=== PATIENT | female | born 1950 | race Two or more races ===

== ENCOUNTER 2020-06-12 15:31 | Outpatient (REF) | payer MEDICARE, MEDICAID, SELFPAY ==
--- NOTE | 2020-06-12 | MM_ITS ---
EXAMINATION: MM SCREENING DIGITAL BREAST TOMOSYNTHESIS, BILATERAL CLINICAL INFORMATION: Screening. Asymptomatic. The lifetime risk of breast cancer based on the Tyrer-Cuzick Model is 4%. COMPARISON: Mammography: 09/05/2018, 08/23/2017, 08/02/2016, 07/01/2015 TECHNIQUE: Digital breast tomosynthesis is performed in both the craniocaudal and mediolateral oblique views along with computer-aided detection (CAD). Synthesized 2D images are generated from the tomosynthesis. FINDINGS: There are scattered areas of fibroglandular density (ACR BI-RADS breast composition Category b). Parenchymal pattern is similar to prior studies. There is some scattered stable nodularity central and anterior left breast and mid outer right breast. There is no interval dominant mass or architectural abnormality or abnormal calcifications. Axillary nodes are stable. The skin contours are smooth. No significant changes from prior exams. MM/MM tomosynthesis screening BI IMPRESSION: No significant changes from prior studies. ASSESSMENT: BI-RADS 2: Benign RECOMMENDATION: Routine annual mammography screening. This patient's information was entered into a reminder system with a target due date for their next mammogram.
== END 2020-06-12 15:32 | disposition home or self-care (01) ==
LOC: HO.MAMMO 15:31
PROVIDERS: PCP Internal Medicine; Visit Provider Internal Medicine
DX: Z12.31 Encounter for screening mammogram for malignant neoplasm of breast (principal)
CPT/HCPCS: 77063; 77067

== ENCOUNTER → 2020-09-11 12:45 | Outpatient (REF) | payer MEDICARE, MEDICAID, SELFPAY ==
--- NOTE | 2020-09-11 12:50 | ECG_ITS ---
Hook-up date: 2020-09-11 13:09:00 Duration: 47:59:00 Test Indications: PALPITATIONS Medications: 920801 QRS complexes 8248 Ventricular ectopics which represent 4 % of total QRS comp. 86 Supraventricular ectopics which represent <1 % of total QRS comp. * Paced QRS complexs which represent % of total QRS comp. VENTRICULAR ECTOPY 8248 Isolated 24 Bigeminal Cycles 0 Couplets 0 Runs 0 Beats in Runs * Beats LONGEST at * BPM at :: -- * Beats FASTEST at * BPM at :: -- SUPRAVENTRICULAR ECTOPY 86 Isolated 0 Couplets 0 Runs 0 Beats in Runs * Beats LONGEST at * BPM at :: -- * Beats FASTEST at * BPM at :: -- HEART RATES 38 MIN at 10:19:22 2020-09-13 58 AVG 108 MAX at 23:25:04 2020-09-12 LONGEST RR 1.4800 secs at 10:19:22 2020-09-13 S-T LEVELS Channel 1 - 128 mm at 13:09:00 2020-09-11 - 128 mm at 13:09:00 2020-09-11 Channel 2 - 128 mm at 13:09:00 2020-09-11 - 128 mm at 13:09:00 2020-09-11 Channel 3 - 128 mm at 03:22:81 -- - 128 mm at 03:22:81 Underlying rhythm is sinus; Frequent Premature ventricular complexes - 5% of total beats; Isolated beats with few bigeminal cycles; Patient did not report any symptoms in the diary Referred By: Kelli Huffman Overread By: CHARLES WASHINGTON
== END ==
LOC: HO.CARD 12:45
PROVIDERS: Visit Provider Internal Medicine
DX: R00.2 Palpitations (principal)
CPT/HCPCS: 93225; 93226

== ENCOUNTER 2020-11-16 09:40 | Outpatient (REF) | payer MEDICARE, MEDICAID, SELFPAY ==
[2020-11-16 10:44] LABS: Alanine Aminotransferase 21 U/L (0-31); Albumin Level 4.4 g/dL (3.5-5.0); Alkaline Phosphatase 51 U/L (39-117); Anion Gap 12 (12-20); Aspartate Amino Transferase 23 U/L (5-31); Bilirubin Total 0.8 mg/dL (0.0-1.0); Blood Urea Nitrogen 26 mg/dL (9-16); Calcium 9.5 mg/dL (8.4-10.2); Carbon Dioxide 29 mmol/L (22-29); Chloride 102 mmol/L (96-108); Cholesterol 180 mg/dL; Estimated Glomerular Filt Rate 59; Glucose Fasting 88 mg/dL (60-99); HDL Cholesterol 39 mg/dL; LDL Cholesterol Calculated 114 mg/dl; Potassium 3.5 mmol/L (3.3-5.1); Sodium 139 mmol/L (135-145); Triglycerides 138 mg/dL
== END 2020-11-16 09:41 | disposition home or self-care (01) ==
LOC: HO.LAB 09:40
PROVIDERS: PCP Internal Medicine; Visit Provider Internal Medicine
DX: E78.5 Hyperlipidemia, unspecified (principal); I10 Essential (primary) hypertension
CPT/HCPCS: 36415; 80053; 80061

== ENCOUNTER 2020-12-04 13:12 | Outpatient (REF) | payer MEDICARE, MEDICAID, SELFPAY ==
[2020-12-09 08:12] LABS: HPV mRNA E6/E7 rflx Not Detected (Not Detected)
== END 2020-12-04 13:13 | disposition home or self-care (01) ==
LOC: HO.LAB 13:12
PROVIDERS: PCP Internal Medicine; Visit Provider Advanced Practice Midwife
DX: Z01.419 Encounter for gynecological examination (general) (routine) without abnormal findings (principal); Z11.51 Encounter for screening for human papillomavirus (HPV)
CPT/HCPCS: 87624; 88142

== ENCOUNTER 2021-02-25 13:08 | Outpatient (REF) | payer MEDICARE, MEDICAID, SELFPAY ==
[2021-02-26 08:47] LABS: BV Int Neg Control Negative (Negative); BV Int Pos Control Positive (Positive)
== END 2021-02-25 13:09 | disposition home or self-care (01) ==
LOC: HO.LAB 13:08
PROVIDERS: Visit Provider Obstetrics & Gynecology
DX: N95.0 Postmenopausal bleeding (principal); N89.8 Other specified noninflammatory disorders of vagina
CPT/HCPCS: 87480; 87510; 87660; 88305; 99212

== ENCOUNTER → 2021-03-23 11:05 | Outpatient (BNVA) | payer MEDICARE, MEDICAID, SELFPAY | PROVIDERS: Visit Provider Obstetrics & Gynecology | DX: N95.0 Postmenopausal bleeding (principal) | CPT/HCPCS: 99212 ==

== ENCOUNTER 2021-05-17 09:03 | Outpatient (REF) | payer MEDICARE, MEDICAID, SELFPAY ==
[2021-05-17 10:40] LABS: Alanine Aminotransferase 21 U/L (0-31); Albumin Level 4.4 g/dL (3.5-5.0); Alkaline Phosphatase 50 U/L (39-117); Anion Gap 14 (12-20); Aspartate Amino Transferase 23 U/L (5-31); Bilirubin Total 0.5 mg/dL (0.0-1.0); Blood Urea Nitrogen 22 mg/dL (9-16); Calcium 9.7 mg/dL (8.4-10.2); Carbon Dioxide 28 mmol/L (22-29); Chloride 103 mmol/L (96-108); Cholesterol 198 mg/dL; Estimated Glomerular Filt Rate > 60; Glucose Fasting 93 mg/dL (60-99); HDL Cholesterol 37 mg/dL; LDL Cholesterol Calculated 130 mg/dl; Potassium 3.4 mmol/L (3.3-5.1); Sodium 142 mmol/L (135-145); Total Protein 7.1 g/dL (6.5-8.0); Triglycerides 159 mg/dL
== END 2021-05-17 09:04 | disposition home or self-care (01) ==
LOC: HO.LAB 09:03
PROVIDERS: PCP Internal Medicine; Visit Provider Internal Medicine
DX: E78.5 Hyperlipidemia, unspecified (principal); I10 Essential (primary) hypertension
CPT/HCPCS: 36415; 80053; 80061

== ENCOUNTER 2021-06-22 08:42 | Outpatient (REF) | payer MEDICARE, MEDICAID, SELFPAY ==
--- NOTE | ~2021-06-22 | MM_ITS ---
EXAMINATION: BONE DENSITOMETRY CLINICAL INDICATION: Menopause. COMPARISON: This is the patient's baseline examination. TECHNIQUE: Using a [employer] DXA System (software version: 13.1) manufactured by [employer], dual-energy x-ray absorptiometry was performed of the lumbar spine and left hip. The images are of good technical quality. Summary results are attached. FINDINGS: AP SPINE L1-L4: BMD 1.105 g/cm2, Z-score 0.3, T-score -0.6, normal. LEFT FEMUR, NECK: BMD 0.946 g/cm2, Z-score 0.5, T-score -0.7, normal. LEFT FEMUR, TOTAL: BMD 1.109 g/cm2, Z-score 1.6, T-score 0.8, normal. IDENTIFIED RISK FACTORS: Menopause. HISTORY OF FRACTURE: None listed. MEDICATIONS: Vitamin D. MM/XR DEXA axial skeleton IMPRESSION: 1. DIAGNOSIS: Normal bone density based on the lowest T-score value of -0.7 in the femoral neck applying World Health Organization criteria. 2. 10-YEAR FRACTURE RISK PREDICTION, FRAX: Major osteoporotic fracture (clinical spine, forearm, hip or shoulder) 4.2%. Hip fracture 0.3%. 3. Treatment Recommendations: NOF guidelines recommend consideration for treatment in postmenopausal women and men age 50 and older presenting with the following: -A hip or vertebral (clinical or morphometric) fracture. -T-score less than or equal to -2.5 at the femoral neck or spine after appropriate evaluation to exclude secondary causes. -Low bone mass at the hip or spine and a 10-year fracture probability by FRAX of greater than or equal to 3% for hip fracture or greater than or equal to 20% for major osteoporotic fracture based on the [place] adapted WHO algorithm. 4. Other Recommendations: All treatment decisions require clinical judgment and consideration of individual patient factors, including patient preferences, comorbidities, previous drug use, risk factors not captured in the FRAX model (e.g. frailty, falls, vitamin D deficiency, increased bone turnover, interval significant decline in bone density) and possible under or overestimation of fracture risk by FRAX. FUTURE SCAN RECOMMENDATION: People with diagnosed cases of osteoporosis or at high risk for fracture should have regular bone mineral density tests. For patients eligible for Medicare, routine testing is allowed once every 2 years. The testing frequency can be increased to one year for patients who have rapidly progressing disease, those who are receiving or discontinuing medical therapy to restore bone mass, or have additional risk factors.
== END 2021-06-22 08:43 | disposition home or self-care (01) ==
LOC: HO.MAMMO 08:42
PROVIDERS: Visit Provider Nurse Practitioner Family
DX: Z13.820 Encounter for screening for osteoporosis (principal); Z78.0 Asymptomatic menopausal state; Z79.899 Other long term (current) drug therapy
CPT/HCPCS: 77080

== ENCOUNTER 2021-07-06 09:22 | Outpatient (REF) | payer MEDICARE, MEDICAID, SELFPAY ==
--- NOTE | ~2021-07-06 | MM_ITS ---
EXAMINATION: MM SCREENING DIGITAL BREAST TOMOSYNTHESIS, BILATERAL CLINICAL INFORMATION: Screening. Asymptomatic. The lifetime risk of breast cancer based on the Tyrer-Cuzick Model is 5%. COMPARISON: Mammography: 06/12/2020, 09/05/2018, 08/23/2017 TECHNIQUE: Digital breast tomosynthesis is performed in both the craniocaudal and mediolateral oblique views along with computer-aided detection (CAD). Synthesized 2D images are generated from the tomosynthesis. FINDINGS: There are scattered areas of fibroglandular density (ACR BI-RADS breast composition Category b). There are no significant masses, abnormal calcifications, or other abnormalities. Parenchymal pattern is similar to prior studies. There is a stable circumscribed nodule anterior 1:00 left breast. Intramammary node again seen mid upper outer right breast. Fine fibronodular pattern is similar to prior exams. No significant changes. MM/MM tomosynthesis screening BI IMPRESSION: No mammographic evidence of malignancy. ASSESSMENT: BI-RADS 2: Benign RECOMMENDATION: Routine annual mammography screening. This patient's information was entered into a reminder system with a target due date for their next mammogram.
== END 2021-07-06 09:23 | disposition home or self-care (01) ==
LOC: HO.MAMMO 09:22
PROVIDERS: Visit Provider Internal Medicine
DX: Z12.31 Encounter for screening mammogram for malignant neoplasm of breast (principal)
CPT/HCPCS: 77063; 77067

== ENCOUNTER → 2021-09-16 09:43 | Outpatient (BNVA) | payer MEDICARE, MEDICAID, SELFPAY | PROVIDERS: PCP Internal Medicine; Visit Provider Urology | DX: N28.1 Cyst of kidney, acquired (principal) | CPT/HCPCS: 99212 ==

== ENCOUNTER 2021-10-14 09:15 | Outpatient (REF) | payer MEDICARE, MEDICAID, SELFPAY ==
--- NOTE | ~2021-10-14 | US_ITS ---
EXAMINATION: US RETROPERITONEAL LIMITED (RENAL ONLY) CLINICAL INFORMATION: Calculus of kidney. COMPARISON: Renal ultrasound 03/12/2020 and 04/16/2019. CT abdomen 07/11/2017. MRI abdomen 04/24/2017. TECHNIQUE: Real-time imaging of the kidneys. FINDINGS: RIGHT KIDNEY: 11.6 x 4.3 x 5.4 cm (SAG x AP x TRV). The kidney is normal in size, contour, and echogenicity. Renal cortical thickness is normal. No renal calculi or hydronephrosis. Solitary isoechoic solid mass is present at the superior pole, measures 1.8 x 1.4 x 1.7 cm, previously measured 1.6 x 1.4 x 1.4 cm, shows minimal interval increase in size since 03/12/2020. Follow-up multiphasic pre and postcontrast MRI or CT scan per renal mass protocol may be considered for further clarification. In addition, there is an echogenic circumscribed solid mass identified also at the superior pole, measures 0.7 x 0.5 x 0.5 cm, most consistent with an angiomyolipoma, unchanged. LEFT KIDNEY: 11.1 x 4.5 x 5.5 cm (SAG x AP x TRV). The kidney is normal in size, contour, and echogenicity. Renal cortical thickness is normal. No renal calculi or hydronephrosis. Multiple cortical subcentimeter cysts are noted at the superior as well as inferior poles, similar to prior study dated 03/12/2020. The largest cyst is seen at the superior pole, measures 0.9 x 0.7 x 0.8 cm, unchanged. US/US renal BI IMPRESSION: 1. Bilateral normal-sized kidneys without evidence of any hydronephrosis and/or calculi. 2. No gross sonographic evidence of urinary tract calculi. 3. Solitary isoechoic solid mass at superior pole of the right kidney, measures 1.8 cm at its maximum dimension, previously 1.6 cm on the study dated 03/12/2020. Given the interval increase in size, follow-up multiphasic pre and postcontrast MRI or CT scan per renal mass protocol may be helpful for further clarification. Subcentimeter presumed angiomyolipoma also seen at the superior pole of the right kidney appear unchanged. 4. Multiple subcentimeter cortical cysts involving the left kidney appear unchanged.
== END 2021-10-14 09:16 | disposition home or self-care (01) ==
LOC: HO.US 09:15
PROVIDERS: PCP Internal Medicine; Visit Provider Urology
DX: N20.0 Calculus of kidney (principal); N28.1 Cyst of kidney, acquired
CPT/HCPCS: 76775

== ENCOUNTER 2021-10-29 16:48 | Emergency (ER) | payer MEDICARE, MEDICAID, SELFPAY ==
--- NOTE | ~2021-10-29 | XR_ITS ---
EXAMINATION: XR HIP, LEFT CLINICAL INFORMATION: Hip pain COMPARISON: None TECHNIQUE: A frontal radiograph of the pelvis and frontal and frog lateral radiographs of the left hip were acquired. FINDINGS: No fracture, dislocation or bone lesion is evident. Mild superolateral joint space narrowing is evident. Incidental note is made of mild degenerative changes in the lower lumbar spine. An IUD is present. XR/XR hip LT min 2V IMPRESSION: Mild superolateral joint space narrowing of the left hip, but no acute fracture, subluxation or bone lesion.
[2021-10-29 17:21] VITALS: BP 149/83; PULSE 89; RESP 20; TEMP 37.1; O2SAT 99; BMI 34.3
--- NOTE | 2021-10-29 19:10 | ED_ITS ---
HPI - Extremity Injury (Lower) General Chief Complaint: Extremity Injury, Lower Stated Complaint: Lower left abd pain Source: patient Mode of arrival: ambulatory Limitations: no limitations History of Present Illness HPI Narrative: 70-year-old female presents with 5 days of left hip pain. Patient states that she only has pain on ambulation. Does not report any injuries or falls. MD complaint: other (Hip pain) Onset (ago): day(s) (5) Type of Injury: unknown Place: home Severity: moderate Severity scale (1-10): 6 Relieving factors: nothing Exacerbating factors: weight bearing Other symptoms: none Treatments prior to arrival: NSAIDS Related Data Previous Rx's Medication Instructions Recorded atorvastatin 10 mg tablet 10 mg PO BEDTIME 90 Days #90 tab 01/17/21 hydrochlorothiazide 50 mg tablet 50 mg PO DAILY #90 tab 04/16/21 cholecalciferol (vitamin D3) 25 25 mcg PO DAILY 90 Days #90 cap 10/05/21 mcg (1,000 unit) capsule lisinopril 20 mg tablet 20 mg PO DAILY 90 Days #90 tab 10/07/21 fluticasone propionate 50 1 spray INTRANASAL DAILY 30 Days 10/25/21 mcg/actuation nasal #16 g spray,suspension (Flonase Allergy Relief) Allergies Allergy/AdvReac Type Severity Reaction Status Date / Time aspirin [ASPIRIN] Allergy Intermediate GI UPSET, Verified 10/05/21 11:36 stomach upset Review of Systems Review of Systems: Constitutional: No Fever, No Chills ENT/Mouth: No Ear Pain, No Hoarseness, No sore throat Eyes: No Eye Pain, No Swelling, No Redness, No Foreign Body Cardiovascular: No Chest Pain, No SOB Respiratory: No Cough, No Dyspnea Gastrointestinal: No Nausea, No Vomiting, No Diarrhea, No abdominal Pain Genitourinary: No Dysuria, No Hematuria Musculoskeletal: positive left hip pain, No Myalgias, No Joint Swelling Skin: No Skin lacerations, No rash Neuro: No Weakness, No Numbness, No Paresthesias, No Loss of Consciousness, No Dizziness, No Headache Psych: No Anxiety/Panic, No Depression Heme/Lymph: no easy bruising, no Lymphadenopathy Endocrine: No Polyuria, No Polydipsia Yes all other systems are reviewed and are negative [facility] Past Medical History Attestation statement: The following information was validated with the patient. Source: old records reviewed Medical History Class 1 obesity with body mass index (BMI) of 34.0 to 34.9 in adult Dyslipidemia Endometrial hyperplasia Endometrium, polyp Essential hypertension Hypovitaminosis D LGSIL (low grade squamous intraepithelial dysplasia) Palpitations Renal neoplasm Surgical History History of cholecystectomy History of colonoscopy History of hysteroscopy Family History Family History Father Leukemia Mother Brain tumor Sister Diabetes Heart problem Sister Renal failure Brother Stroke Brother Hypertension Family/Other FH: mental illness Maternal Uncle Paranoia Family/Other Breast cancer Social History Social History Housing: House Alcohol intake: never Patient Tobacco Use Status: Never used Tobacco e-Cigarette/Vaping Use: Never Used Second Hand Smoke Exposure: No Advance Directives: No Advance Directives Information Provided: No service: No Current occupational status: retired Hearing needs: No Vision needs: Yes Physical Exam Vital Signs: Vital Signs: Last Vital Signs Temp 98.7 F 10/29/21 17:21 Pulse 89 10/29/21 17:21 Resp 20 10/29/21 17:21 BP 149/83 H 10/29/21 17:21 Pulse Ox 99 10/29/21 17:21 BMI result Body Mass Index 34.3 Appearance: Alert. Oriented X3. No acute distress. Eyes: Pupils equal, round and reactive to light. ENT: Pharynx normal. Neck: Normal inspection. Neck supple. CVS: Normal heart rate and rhythm. Pulses normal. Respiratory: No respiratory distress. Breath sounds normal. Abdomen: Soft and nontender. Skin: Skin warm and dry. Normal skin color. Normal skin turgor. Extremities: No lower extremity edema. Full range of motion to all extremities. Brisk capillary refill in equal pulses. Neuro: No motor deficit. No sensory deficit. Cranial nerves 2-12 intact. Course Course Course Narrative: 70-year-old female presents with 5 days of left hip pain. States that it hurts more on ambulation. Does not report any trauma or injury. Will order x-rays. 21:23 x-rays are negative for acute findings and show an IUD. 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 Will refer to orthopedics for further evaluation. Patient verbalized understanding of and agrees to plan of care to discharge home. Verbalized understanding of signs and symptoms indicating need for emergent intervention MDM - Extremity Injury (Lower) MDM Narrative Medical decision making narrative: Arthritis Differential Diagnosis Differential diagnosis: Likely fracture of hip Medical Records Attestation: I reviewed the patient's medical records. Imaging Data Left hip x-ray: Attestation: I personally reviewed and interpreted this imaging study as follows: Radiologist's impression: EXAMINATION: XR HIP, LEFT CLINICAL INFORMATION: Hip pain COMPARISON: None TECHNIQUE: A frontal radiograph of the pelvis and frontal and frog lateral radiographs of the left hip were acquired. FINDINGS: No fracture, dislocation or bone lesion is evident. Mild superolateral joint space narrowing is evident. Incidental note is made of mild degenerative changes in the lower lumbar spine. An IUD is present. XR/XR hip LT min 2V IMPRESSION: Mild superolateral joint space narrowing of the left hip, but no acute fracture, subluxation or bone lesion. ? Discharge Plan Discharge Clinical Impression: Chronic hip pain Patient Disposition: Home, Self-Care Instructions: Arthralgia (ED), Hip Pain (ED) Additional Instructions: You were evaluated for left hip pain. X-rays indicate a joint space narrowing of the left hip without fracture, subluxation, or bone degeneration. Please consider following up with Orthopedics. Call and request an appointment for evaluation. Take Tylenol 650 mg every 6 hours or Motrin 600 mg every 6 hours as needed for pain management. Write down what time you take these medications to prevent accidental overdose. Thank you for choosing this emergency department for evaluation. Please follow-up with primary care physician as needed. Return to the emergency department for any new, concerning, or worsening symptoms. Prescriptions: No Action atorvastatin 10 mg tablet 10 mg PO BEDTIME 90 Days Qty: 90 2RF hydrochlorothiazide 50 mg tablet 50 mg PO DAILY Qty: 90 3RF lisinopril 20 mg tablet 20 mg PO DAILY 90 Days Qty: 90 1RF fluticasone propionate [Flonase Allergy Relief] 50 mcg/actuation spray,suspension 1 spray intranasal DAILY 30 Days Qty: 16 6RF Rx Instructions: administer into each nostril cholecalciferol (vitamin D3) 25 mcg (1,000 unit) capsule 25 mcg PO DAILY 90 Days Qty: 90 3RF Referrals: Silva Grimaldo PA-C [Physician Tub Attendant] - (Chronic left hip pain) Interventions: ED Discharge Assessment Last Done: 10/29/21 21:40 Discharge Date/Time: 10/29/21 22:22
== END 2021-10-29 22:22 | disposition home or self-care (01) ==
PROVIDERS: Emergency Provider Emergency Medicine; PCP Internal Medicine
DX: M25.552 Pain in left hip (principal); G89.29 Other chronic pain; I10 Essential (primary) hypertension; Z97.5 Presence of (intrauterine) contraceptive device
CPT/HCPCS: 73502; 99283

== ENCOUNTER → 2021-11-01 09:53 | Outpatient (BNVA) | payer MEDICARE, MEDICAID, SELFPAY | PROVIDERS: PCP Internal Medicine | DX: D49.519 Neoplasm of unspecified behavior of unspecified kidney (principal) | CPT/HCPCS: 99212 ==

== ENCOUNTER 2021-11-02 10:14 | Outpatient (REF) | payer MEDICARE, MEDICAID, SELFPAY ==
[2021-11-02 11:20] LABS: Alanine Aminotransferase 15 U/L (0-31); Albumin Level 4.4 g/dL (3.5-5.0); Alkaline Phosphatase 50 U/L (39-117); Anion Gap 11 (12-20); Aspartate Amino Transferase 18 U/L (5-31); Bilirubin Total 0.3 mg/dL (0.0-1.0); Blood Urea Nitrogen 28 mg/dL (9-16); Calcium 9.8 mg/dL (8.4-10.2); Carbon Dioxide 30 mmol/L (22-29); Chloride 103 mmol/L (96-108); Cholesterol 189 mg/dL; Estimated Glomerular Filt Rate > 60; Glucose Fasting 97 mg/dL (60-99); HDL Cholesterol 40 mg/dL; LDL Cholesterol Calculated 126 mg/dl; Potassium 4.1 mmol/L (3.3-5.1); Sodium 140 mmol/L (135-145); Total Protein 7.2 g/dL (6.5-8.0); Triglycerides 115 mg/dL
[2021-11-02 11:42] LABS: Vitamin D 25-OH Total 34.2 ng/mL (>30)
== END 2021-11-02 10:15 | disposition home or self-care (01) ==
LOC: HO.LAB 10:14
PROVIDERS: Internal Medicine; PCP Student in an Organized Health Care Education/Training Program
DX: E78.5 Hyperlipidemia, unspecified (principal); E55.9 Vitamin D deficiency, unspecified; I10 Essential (primary) hypertension
CPT/HCPCS: 36415; 80053; 80061; 82306

== ENCOUNTER → 2021-11-26 07:46 | Outpatient (BNVA) | payer MEDICARE, MEDICAID, SELFPAY | PROVIDERS: PCP Student in an Organized Health Care Education/Training Program; Visit Provider Physician Assistant | DX: M16.12 Unilateral primary osteoarthritis, left hip (principal) | CPT/HCPCS: 99202 ==

== ENCOUNTER 2022-01-26 09:35 | Outpatient (REF) | payer MEDICARE, MEDICAID, SELFPAY ==
[2022-01-26 14:14] LABS: Blood Urea Nitrogen 26 mg/dL (9-16); Estimated Glomerular Filt Rate 49
== END 2022-01-26 09:36 | disposition home or self-care (01) ==
LOC: HO.LAB 09:35
PROVIDERS: PCP Internal Medicine
DX: D49.519 Neoplasm of unspecified behavior of unspecified kidney (principal)
CPT/HCPCS: 36415; 82565; 84520

== ENCOUNTER 2022-01-31 09:32 | Outpatient (REF) | payer MEDICARE, MEDICAID, SELFPAY ==
--- NOTE | ~2022-01-31 | CT_ITS ---
EXAMINATION: CT ABDOMEN WITHOUT AND WITH CONTRAST CLINICAL INFORMATION: Kidney cancer COMPARISON: Previous renal ultrasound most recent September [address] of the abdomen and pelvis February 2017 and MRI March 2017 TECHNIQUE: Contiguous axial thin section helical images of the abdomen were performed before and after the administration of oral contrast and 85 mL of Omnipaque 350 intravenous contrast. The data set was reformatted in the coronal and sagittal planes and reviewed on an independent workstation. This CT examination was performed using dose optimization techniques as appropriate, variously including the following: *Automated exposure control *Adjustment of mA and/or kV according to patient size (this includes techniques or standardized protocols for targeted exams where dose is matched to indication/reason for exam; i.e. extremities or head) *Use of iterative reconstruction technique DLP: 550 mGy-cm FINDINGS: LUNG BASES: The lung bases are clear. LIVER, GALLBLADDER, AND BILIARY TREE: The liver is slightly low in attenuation suggestive of mild fatty infiltration. The liver is normal in size and contour. No focal liver lesion or biliary duct dilatation. The gallbladder has been removed. PANCREAS: Normal SPLEEN: Normal ADRENAL GLANDS AND KIDNEYS: The adrenal glands are normal. There is a 1 x 1.1 cm solid enhancing lesion exophytic to the posterior upper pole of the right kidney. Hounsfield units precontrast measure 35. Hounsfield postcontrast measure 100. This measures 1 x 1.1 cm. This is not appreciably changed in size from 2017 exam. There is a 3 mm fatty lesion in the upper pole the right kidney suggestive of an angiomyolipoma that is stable. There are several small bilateral renal cysts. Largest cyst measures 8 mm in the upper pole of the left kidney. BOWEL LOOPS: Normal LYMPH NODES: Normal. VASCULAR: Unremarkable. BONES: There are degenerative changes of the spine. CT/CT abdomen wo/w con IMPRESSION: 1 x 1.1 cm solid enhancing mass exophytic to the posterior upper pole of the right kidney. This is not appreciably changed from 2017 exam. Stable small fatty lesion in the right kidney suggestive of an angiomyolipoma. Bilateral renal cysts. Mild fatty infiltration of the liver Fleischner guidelines were followed.
[2022-01-31] MEDS: iohexoL 350 MG/ML 100 ML INFUS..BTL IV (10:28)
== END 2022-01-31 09:33 | disposition home or self-care (01) ==
LOC: HO.CT 09:32
PROVIDERS: PCP Internal Medicine
DX: D49.519 Neoplasm of unspecified behavior of unspecified kidney (principal)
CPT/HCPCS: 74170; Q9967

== ENCOUNTER 2022-02-11 10:57 | Outpatient (AMB) | payer MEDICARE, MEDICAID, SELFPAY ==
--- NOTE | 2022-02-10 12:32 | A.OFFVIS_ITS ---
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 [place] speaker. She is a patient of Dr. Huffman. She is seen for the following urologic. - renal cyst [place] translation provided in office by qualified medical photographer Angiomyolipoma stable Would continue yearly evaluation Renal cyst and question of angiomyolipoma Prior imaging with multiple renal cysts and question of 1.6 cm AML on upper pole right kidney Imaging - 04/14 renal ultrasound with multiple b ilateral renal cysts up to 1.5 cm and question of 1.6 cm mL upper pole right kidney - 02/14 1 x 1.1 cm solid enhancing mass e xophytic to the posterior upper pole of the right kidney. This is not appreciably changed from 2017 exam. Stable small fatty lesion in the right kidney suggestive of an angiomyolipoma PFSH Medical History Class 1 obesity with body mass index (BMI) of 34.0 to 34.9 in adult Renal neoplasm Endometrium, polyp LGSIL (low grade squamous intraepithelial dysplasia) Endometrial hyperplasia Hypovitaminosis D Dyslipidemia Palpitations Essential hypertension Surgical History History of esophagogastroduodenoscopy (EGD) History of colonoscopy History of cholecystectomy History of hysteroscopy Family History Father Leukemia Mother Brain tumor Sister Diabetes Heart problem Sister Renal failure Brother Stroke Brother Hypertension Family/Other FH: mental illness Maternal Uncle Paranoia Family/Other Breast cancer Social History Household Members: Spouse Household Members Other:: daughter Housing: House Alcohol intake: never Patient Tobacco Use Status: Never used Tobacco e-Cigarette/Vaping Use: Never Used Second Hand Smoke Exposure: No service: No Current occupational status: retired Sexual orientation: Straight/Heterosexual Gender identity: Female Cognitive needs: No Hearing needs: No Vision needs: Yes Female Reproductive History Menstrual Age of Menarche: 16 Review of Systems Const Denies chills and Denies fever(s) Card Reports no additional complaints and Denies syncope Resp Denies cough GI Denies abdominal pain and Denies heartburn Reports as per HPI and Denies change in libido Neuro Denies syncope Psych Denies change in libido Endo Denies change in libido Physical Exam Const General: cooperative, healthy appearing, comfortable and no acute distress Orientation/consciousness: patient oriented x3 HEENT Face and sinus: Yes normal facial exam Mouth: moist mucous membranes Neck Neck: Yes normal visual inspection, Yes full ROM and Yes trachea midline Chest Chest palpation & inspection: normal inspection of the chest Resp Effort & Inspection: normal respiratory effort, able to speak in complete sentences and no respiratory distress GI Inspection: Yes normal to inspection Back/Spine/Pelvis Cervical Spine: normal cervical lordosis Thoracic/Lumbar Spine: thoracic and lumbar spine normal to inspection Skin General skin exam: no rashes or lesions noted Neuro General: patient oriented x3, gait normal, tone normal and moves all extremities Extrem General: Yes normal to inspection and Yes capillary refill normal Assessment & Plan Assessment & Plan (1) Angiomyolipoma: Code(s): D17.9 - Benign lipomatous neoplasm, unspecified Plan Continue yearly review Orders: Orders AMB Urinalysis Automated 02/11/22 Z13.9 - Encounter for screening, unspecified MR kidney wo/w con 1 Year D17.9 - Benign lipomatous neoplasm, unspecified Blood Urea Nitrogen 1 Year D17.9 - Benign lipomatous neoplasm, unspecified Creatinine 1 Year D17.9 - Benign lipomatous neoplasm, unspecified Patient Instructions: Imaging studies, laboratory and physical exam results were discussed and reviewed in detail. No major barriers to patient understanding were identified. An opportunity to ask questions regarding the treatment plan was provided. All questions were answered. The patient expressed understanding and agreement with the above treatment plan. The patient is aware they should contact our office by phone for worsening of their current condition or the appearance of new urologic symptoms. Compliance is encouraged with any medications and followup testing that is ordered. It is a privilege to participate in the urologic care of your patient. If you have any questions or concerns regarding treatment for the above conditions, or other urologic issues, please do not hesitate to contact me. The office telephone contact is [phone]. This note is constructed using voice recognition software. While every effort has been made to ensure accuracy residential coordinator errors may have been included. Yours sincerely, Dr Fantasma Wayne MD, [facility] - Urology Providers of Expert, Compassionate Care for the Genitourinary System Coding Level of Care Code Est Pt Level 4 (24303) Diagnoses Angiomyolipoma D17.9
== END 2022-02-11 12:06 | disposition home or self-care (01) ==
LOC: HO.HUSH 10:57
PROVIDERS: PCP Internal Medicine; Visit Provider Urology
DX: D17.9 Benign lipomatous neoplasm, unspecified (principal)
CPT/HCPCS: 99499

== ENCOUNTER 2022-03-07 08:23 | Outpatient (REF) | payer MEDICARE, MEDICAID, SELFPAY ==
[2022-03-07 09:20] LABS: Alanine Aminotransferase 27 U/L (0-31); Albumin Level 4.5 g/dL (3.5-5.0); Alkaline Phosphatase 57 U/L (39-117); Anion Gap 15 (12-20); Aspartate Amino Transferase 26 U/L (5-31); Bilirubin Total 0.4 mg/dL (0.0-1.0); Blood Urea Nitrogen 21 mg/dL (9-16); Calcium 9.9 mg/dL (8.4-10.2); Carbon Dioxide 29 mmol/L (22-29); Chloride 101 mmol/L (96-108); Cholesterol 207 mg/dL; Estimated Glomerular Filt Rate 54; Glucose Fasting 97 mg/dL (60-99); HDL Cholesterol 39 mg/dL; LDL Cholesterol Calculated 140 mg/dl; Sodium 141 mmol/L (135-145); Total Protein 7.4 g/dL (6.5-8.0); Triglycerides 140 mg/dL
[2022-03-07 10:01] LABS: Vitamin D 25-OH Total 29.3 ng/mL (>30)
== END 2022-03-07 08:24 | disposition home or self-care (01) ==
LOC: HO.LAB 08:23
PROVIDERS: Urology; PCP Internal Medicine; Visit Provider Internal Medicine
DX: E78.5 Hyperlipidemia, unspecified (principal); E55.9 Vitamin D deficiency, unspecified; I10 Essential (primary) hypertension
CPT/HCPCS: 36415; 80053; 80061; 82306

== ENCOUNTER → 2022-03-16 08:57 | Outpatient (BNVA) | payer MEDICARE, MEDICAID, SELFPAY | PROVIDERS: PCP Internal Medicine; Visit Provider Internal Medicine | DX: Z01.818 Encounter for other preprocedural examination (principal) | CPT/HCPCS: 99202 ==

== ENCOUNTER 2022-07-07 09:26 | Outpatient (REF) | payer MEDICARE, MEDICAID, SELFPAY ==
--- NOTE | ~2022-07-07 | MM_ITS ---
EXAMINATION: MM SCREENING DIGITAL BREAST TOMOSYNTHESIS, BILATERAL CLINICAL INFORMATION: Screening. Asymptomatic. The lifetime risk of breast cancer based on the Tyrer-Cuzick Model is 3.9%. COMPARISON: Mammography: July 06, 2021 and studies dating back to July 01, 2015 TECHNIQUE: Digital breast tomosynthesis is performed in both the craniocaudal and mediolateral oblique views along with computer-aided detection (CAD). Synthesized 2D images are generated from the tomosynthesis. FINDINGS: There are scattered areas of fibroglandular density (ACR BI-RADS breast composition Category b). There are no significant masses, abnormal calcifications, or other abnormalities. MM/MM tomosynthesis screening BI IMPRESSION: No significant changes from prior exam. ASSESSMENT: BI-RADS 1: Negative RECOMMENDATION: Routine annual mammography screening. This patient's information was entered into a reminder system with a target due date for their next mammogram.
[2022-07-07 11:55] LABS: Alanine Aminotransferase 22 U/L (0-31); Albumin Level 4.5 g/dL (3.5-5.0); Alkaline Phosphatase 60 U/L (39-117); Anion Gap 14 (12-20); Aspartate Amino Transferase 23 U/L (5-31); Bilirubin Total 0.5 mg/dL (0.0-1.0); Blood Urea Nitrogen 23 mg/dL (9-16); Calcium 9.9 mg/dL (8.4-10.2); Carbon Dioxide 27 mmol/L (22-29); Chloride 101 mmol/L (96-108); Cholesterol 212 mg/dL; Estimated Glomerular Filt Rate 52; Glucose Fasting 95 mg/dL (60-99); HDL Cholesterol 39 mg/dL; LDL Cholesterol Calculated 145 mg/dl; Potassium 3.6 mmol/L (3.3-5.1); Sodium 138 mmol/L (135-145); Total Protein 7.5 g/dL (6.5-8.0); Triglycerides 140 mg/dL; Vitamin D 25-OH Total 30.3 ng/mL (>30)
== END 2022-07-07 09:27 | disposition home or self-care (01) ==
LOC: HO.MAMMO 09:26
PROVIDERS: PCP Internal Medicine; Visit Provider Internal Medicine
DX: Z12.31 Encounter for screening mammogram for malignant neoplasm of breast (principal); E78.5 Hyperlipidemia, unspecified; E55.9 Vitamin D deficiency, unspecified; I10 Essential (primary) hypertension
CPT/HCPCS: 36415; 77063; 77067; 80053; 80061; 82306

== ENCOUNTER 2022-08-25 08:36 | Day surgery (SDC) | payer MEDICARE, MEDICAID, SELFPAY ==
--- NOTE | 2022-08-24 12:09 | P.CONAN_ITS ---
Documented by User: Alannah Jenkins NP 08/24/22 12:10 HPI - Anesthesia Eval Consult details Narrative: 71yo F for Colonoscopy PMFSH Active Problems Active Problems: All Active Problems (Updated 07/19/22 @ 10:09 by Kelli Huffman MD) Pure hypercholesterolemia (Acute) History of endometrial hyperplasia (Acute) Well woman exam (Acute) Angiomyolipoma (Acute) Osteoarthritis of left hip (Acute) Class 1 obesity with body mass index (BMI) of 34.0 to 34.9 in adult (Acute) Renal cyst (Acute) Adult general medical exam (Acute) Post-menopausal (Acute) Renal neoplasm (Acute) Vaginal itching (Acute) Postmenopausal bleeding (Acute) Hypovitaminosis D (Acute) Dyslipidemia (Acute) Palpitations (Acute) Essential hypertension (Acute) Past Medical History Medical History Class 1 obesity with body mass index (BMI) of 34.0 to 34.9 in adult Dyslipidemia Endometrial hyperplasia Endometrium, polyp Essential hypertension Hypovitaminosis D LGSIL (low grade squamous intraepithelial dysplasia) Palpitations Renal neoplasm Family History Family History Father Leukemia Mother Brain tumor Sister Diabetes Heart problem Sister Renal failure Brother Stroke Brother Hypertension Family/Other FH: mental illness Maternal Uncle Paranoia Family/Other Breast cancer Surgical History Surgical History History of cholecystectomy History of colonoscopy History of esophagogastroduodenoscopy (EGD) History of hysteroscopy Social History Social History Household Members: Spouse Household Members Other:: daughter Housing: House Alcohol intake: never Patient Tobacco Use Status: Never used Tobacco e-Cigarette/Vaping Use: Never Used Second Hand Smoke Exposure: No Use of substances other than those prescribed or required for medical reasons: No Are you DNR?: No Advance Directives: No Advance Directives Information Provided: Yes service: No Current occupational status: retired Sexual orientation: Straight/Heterosexual Gender identity: Female Cognitive needs: No Hearing needs: No Vision needs: Yes Meds Allergies Allergy/AdvReac Type Severity Reaction Status Date / Time aspirin [ASPIRIN] Allergy Intermediate GI UPSET, Verified 08/25/22 09:49 stomach upset Home Medications Medication Instructions Recorded Confirmed Last Taken Type cholecalciferol (vitamin D3) 25 25 mcg PO DAILY 02/10/22 08/25/22 Unknown History mcg (1,000 unit) tablet levonorgestrel 20 mcg/24 hours (8 1 device intrauterine 02/21/22 07/19/22 Unknown History yrs) 52 mg intrauterine device (Mirena) Exam Exam Date and Time: August 24, 2022 1209 Assessment and Plan Assessment Anesthesia Assessment: Chart Reviewed Documented by User: Nilda Graham MD 08/25/22 10:31 [facility] Past Medical History Medical History Class 1 obesity with body mass index (BMI) of 34.0 to 34.9 in adult Dyslipidemia Endometrial hyperplasia Endometrium, polyp Essential hypertension Hypovitaminosis D LGSIL (low grade squamous intraepithelial dysplasia) Palpitations Renal neoplasm Functional capacity: independent ambulation Family History Family History Father Leukemia Mother Brain tumor Sister Diabetes Heart problem Sister Renal failure Brother Stroke Brother Hypertension Family/Other FH: mental illness Maternal Uncle Paranoia Family/Other Breast cancer Family history of problems with anesthesia: No Surgical History Surgical History History of cholecystectomy History of colonoscopy History of esophagogastroduodenoscopy (EGD) History of hysteroscopy History of Problems with Anesthesia: No Social History Social History Household Members: Spouse Household Members Other:: daughter Housing: House Alcohol intake: never Patient Tobacco Use Status: Never used Tobacco e-Cigarette/Vaping Use: Never Used Second Hand Smoke Exposure: No Use of substances other than those prescribed or required for medical reasons: No Are you DNR?: No Advance Directives: No Advance Directives Information Provided: Yes service: No Current occupational status: retired Sexual orientation: Straight/Heterosexual Gender identity: Female Cognitive needs: No Hearing needs: No Vision needs: Yes Meds Allergies Allergy/AdvReac Type Severity Reaction Status Date / Time aspirin [ASPIRIN] Allergy Intermediate GI UPSET, Verified 08/25/22 09:49 stomach upset Home Medications Medication Instructions Recorded Confirmed Last Taken Type cholecalciferol (vitamin D3) 25 25 mcg PO DAILY 02/10/22 08/25/22 Unknown History mcg (1,000 unit) tablet levonorgestrel 20 mcg/24 hours (8 1 device intrauterine 02/21/22 07/19/22 Unknown History yrs) 52 mg intrauterine device (Mirena) Exam Airway Mallampati Class: II TM Dist: >3cm Neck ROM: Full Heart: RRR Lungs: CTA Assessment and Plan Final Anesthetic Review Family History of Problems with Anesthesia: No History of Problems with Anesthesia: No NPO: Yes ASA Class: II Final Preanesthetic Review: No Changes in Pt Med Stat, Meds/Allgs Chart Rev iewed, Consent Obtained/Reviewed and Anes Risks/Benef Reviewed Patient Risk: Low Procedure Risk: Low Anesthetic Plan Anesthetic Plan: MAC: Disposition: Standard PACU
[2022-08-25 09:27] VITALS: BP 169/81; PULSE 92; RESP 16; TEMP 36.7; O2SAT 98
[2022-08-25 09:34] VITALS: BMI 31.8
--- NOTE | 2022-08-25 10:00 | MHC.SHP ---
Pre-Procedural Eval Section A Date of Service: 08/25/22 Section B Chief Complaint: Encounter for screening for malignant neoplasm of Details of Present Illness: PMH: Class 1 obesity with body mass index (BMI) of 34.0 to 34.9 in adult Dyslipidemia Endometrial hyperplasia Endometrium, polyp Essential hypertension Hypovitaminosis D LGSIL (low grade squamous intraepithelial dysplasia) Palpitations Renal neoplasm Surgical History History of cholecystectomy History of colonoscopy History of esophagogastroduodenoscopy (EGD) History of hysteroscopy Relevant Family History (Specify if Yes): No Relevant Social History: None Present Medications: see Short Stay Collaborative assessment Allergies: Allergies Allergy/AdvReac Type Severity Reaction Status Date / Time aspirin [ASPIRIN] Allergy Intermediate GI UPSET, Verified 08/25/22 09:49 stomach upset Review of Systems Review of Systems Comment: Ten point ROS negative Exam Exam Comment: Gen appear: No acute distress HEENT: no icterus Chest: No overt resp distress Abd: soft, nontender, nondistended Psych: Stable affect, answering questions appropriately Neuro: A/Ox3 noted to move all extremities spontaneously Ext: no peripheral edema Plan Diagnosis/Plan: Unchanged I have reviewed the history and physical and performed a pertinent physical examination on my patient. No changes have occurred unless specified. Time Spent With Patient Time: Total time managing care of this patient today ____ minutes.
--- NOTE | 2022-08-25 10:53 | P.OP_ITS ---
Operative Note Operative Note Date of Service: 08/25/22 Narrative: Procedure: Colonoscopy Indication: Screening Endoscopist: Mel Gallegos MD Anesthesia Provider: Dr Nilda Bal Anesthesia type: MAC Instrument: Olympus [id number]-H190L Consent: Indication, risks vs benefits, and alternatives were discussed with the patient who gave written informed consent to proceed. An transformation manager was utilized to assist with the consent. EKG, pulse, pulse oximetry and blood pressure were monitored throughout the procedure. Please see anesthesia flowsheet. Procedure: The patient was brought to the procedure room and placed in the left lateral decubitus position. IV medications were administered by the anesthesia provider in attendance. A digital rectal exam was performed which was normal. The distal cap was attached to the tip of the scope and the colonoscope was then inserted through the anus and advanced through the colon to the cecum at 75 cm,and terminal ileum. Appendiceal orifice and ileocecal valve identified. Mucosa was carefully examined under high definition white light as the instr ument was slowly withdrawn in a retrograde panoramic fashion. Retroflexion was performed in ascending colon and rectum. The procedure was not difficult. There were no immediate obvious complications. The quality of the prep was BBPS: 3+2+3 = adequate Withdrawal time 12 minutes. Limitations: No limitations. Findings: Mucosa: Normal to cecum and terminal ileum. Protruding lesions: * 2 sessile polyp of size 3-6 mm in sigmoid colon. Captivator II hot snare was utilised for cold snare polypectomy. The polyps were completely removed and retrieved. * Medium internal hemorrhoids without stigmata of recent bleeding. Excavated lesions: * Scattered diverticulosis of left sided colon. Impression: 1. Normal colon and terminal ileum mucosa 2. Total of 2 polyps removed from sigmoid colon. 3. Mild diverticulosis 4. Internal hemorrhoids Recommendations: - Follow path results. - Repeat colonoscopy in 7-10 years if polyps are adenomas.
[2022-08-25 11:25] VITALS: BP 80/39; PULSE 81; RESP 16; TEMP 37.1; O2SAT 98
[2022-08-25 11:40] VITALS: BP 111/69; PULSE 68; RESP 16; O2SAT 98
--- NOTE | 2022-08-25 11:46 | HO.POSTANES ---
Post Anesthesia Evaluation Post Anesthesia Evaluation Vital Signs: Vital Signs Temp Pulse Resp BP Pulse Ox O2 Del Method 08/25/22 11:25 98.8 F 81 16 80/39 L 98 Room Air 08/25/22 09:27 98.1 F 92 16 169/81 H 98 Room Air Anesthesia: Monitored Mental Status: Awake Pain Control: Satisfactory Nausea/Vomiting: None Hydration: Adequate Anesthesia-Related Issues: No Anes. Related Issues
== END 2022-08-25 12:37 | disposition home or self-care (01) ==
PROVIDERS: PCP Internal Medicine; Visit Provider Internal Medicine
PROC: 0DJD8ZZ Inspection of Lower Intestinal Tract, Via Natural or Artificial Opening Endoscopic (ICD-10-PCS; CPT 45378; principal; 2022-08-25 10:40)
DX: Z12.11 Encounter for screening for malignant neoplasm of colon (principal); K63.5 Polyp of colon; K57.30 Diverticulosis of large intestine without perforation or abscess without bleeding; K64.8 Other hemorrhoids; E66.9 Obesity, unspecified; Z68.34 Body mass index [BMI] 34.0-34.9, adult; E78.5 Hyperlipidemia, unspecified; I10 Essential (primary) hypertension; R00.2 Palpitations; I49.9 Cardiac arrhythmia, unspecified; D49.519 Neoplasm of unspecified behavior of unspecified kidney; E55.9 Vitamin D deficiency, unspecified; Z79.899 Other long term (current) drug therapy; Z88.8 Allergy status to other drugs, medicaments and biological substances; Z90.49 Acquired absence of other specified parts of digestive tract
CPT/HCPCS: 45385; 88305

== ENCOUNTER → 2022-09-14 09:16 | Outpatient (BNVA) | payer MEDICARE, MEDICAID, SELFPAY | PROVIDERS: PCP Internal Medicine; Visit Provider Internal Medicine | DX: K57.90 Diverticulosis of intestine, part unspecified, without perforation or abscess without bleeding (principal); Z86.010 Personal history of colon polyps | CPT/HCPCS: 99212 ==

== ENCOUNTER 2022-11-11 09:26 | Outpatient (REF) | payer MEDICARE, MEDICAID, SELFPAY ==
[2022-11-11 11:12] LABS: Alanine Aminotransferase 17 U/L (0-31); Albumin Level 4.3 g/dL (3.5-5.0); Alkaline Phosphatase 52 U/L (39-117); Anion Gap 12 (12-20); Aspartate Amino Transferase 18 U/L (5-31); Bilirubin Total 0.6 mg/dL (0.0-1.0); Blood Urea Nitrogen 20 mg/dL (9-16); Calcium 9.7 mg/dL (8.4-10.2); Carbon Dioxide 31 mmol/L (22-29); Chloride 104 mmol/L (96-108); Cholesterol 178 mg/dL; Estimated Glomerular Filt Rate > 60; Glucose Fasting 87 mg/dL (60-99); HDL Cholesterol 39 mg/dL; LDL Cholesterol Calculated 112 mg/dl; Potassium 4.2 mmol/L (3.3-5.1); Sodium 143 mmol/L (135-145); Total Protein 6.9 g/dL (6.5-8.0); Triglycerides 136 mg/dL
[2022-11-11 11:32] LABS: Vitamin D 25-OH Total 40.7 ng/mL (>30)
== END 2022-11-11 09:27 | disposition home or self-care (01) ==
LOC: HO.LAB 09:26
PROVIDERS: PCP Internal Medicine; Visit Provider Internal Medicine
DX: E55.9 Vitamin D deficiency, unspecified (principal); E78.5 Hyperlipidemia, unspecified; E78.00 Pure hypercholesterolemia, unspecified
CPT/HCPCS: 36415; 80053; 80061; 82306

== ENCOUNTER 2023-02-28 11:07 | Outpatient (REF) | payer MEDICARE, MEDICAID, SELFPAY ==
--- NOTE | ~2023-02-28 | MR_ITS ---
EXAMINATION: MRI ABDOMEN WITHOUT AND WITH CONTRAST CLINICAL INFORMATION: Benign lipomatous neoplasm. COMPARISON: 01/31/2022 and 04/24/2017 TECHNIQUE: MRI of the abdomen before and after the IV administration of 8.5 mL of Gadavist was obtained using routine sequences. FINDINGS: LUNG BASES: No pleural or pericardial effusion. LIVER, GALLBLADDER, AND BILIARY TREE: The liver is normal in size and contour. No focal hepatic lesion. Hepatic steatosis. No biliary ductal dilatation. The common duct measures 6 mm at the suzette hepatis. The gallbladder is not visualized. PANCREAS: No ductal dilatation. SPLEEN: Not enlarged. ADRENAL GLANDS: No adrenal mass. KIDNEYS: The kidneys are symmetric in size and enhance normally. There are bilateral T2 hyperintense lesions without abnormal enhancement. 1.1 x 0.8 x 1.1 cm right upper pole enhancing renal lesion. The lesion is T2 hyperintense and T1 hypointense. No hydronephrosis or perinephric fluid collection. BOWEL AND PERITONEUM: Imaged loops of small and large bowel are nonobstructed. LYMPH NODES: Nonspecific mesenteric stranding and edema. Few subcentimeter mesenteric lymph nodes are appreciated. No retroperitoneal adenopathy. VASCULAR: Normal caliber abdominal aorta. MR/MR kidney wo/w con IMPRESSION: 1.1 x 0.8 x 1.1 cm enhancing upper pole right renal lesion. This lesion has slightly increased in size in size relative to 2017. This may represent a slow-growing neoplasm. Consultation with urology is advised. Hepatic steatosis.
[2023-02-28] MEDS: gadobutroL 10 ML VIAL IVPUSH (12:25)
== END 2023-02-28 11:08 | disposition home or self-care (01) ==
LOC: HO.MRI 11:07
PROVIDERS: PCP Internal Medicine; Visit Provider Urology
DX: D17.9 Benign lipomatous neoplasm, unspecified (principal)
CPT/HCPCS: 74181; A9585

== ENCOUNTER 2023-03-20 09:12 | Outpatient (REF) | payer MEDICARE, MEDICAID, SELFPAY ==
[2023-03-20 10:41] LABS: Alanine Aminotransferase 16 U/L (0-31); Albumin Level 4.5 g/dL (3.5-5.0); Alkaline Phosphatase 50 U/L (39-117); Anion Gap 18 (12-20); Aspartate Amino Transferase 21 U/L (5-31); Bilirubin Total 0.6 mg/dL (0.0-1.0); Blood Urea Nitrogen 21 mg/dL (9-16); Carbon Dioxide 24 mmol/L (22-29); Chloride 103 mmol/L (96-108); Cholesterol 186 mg/dL (<200); Estimated Glomerular Filt Rate > 60; Glucose Fasting 89 mg/dL (60-99); HDL Cholesterol 40 mg/dL (>40); LDL Cholesterol Calculated 119 mg/dL (<100); Potassium 3.8 mmol/L (3.3-5.1); Sodium 141 mmol/L (135-145); Total Protein 7.5 g/dL (6.5-8.0); Triglycerides 139 mg/dL (<150)
[2023-03-20 10:59] LABS: Vitamin D 25-OH Total 42.4 ng/mL (>30)
== END 2023-03-20 09:13 | disposition home or self-care (01) ==
LOC: HO.LAB 09:12
PROVIDERS: PCP Internal Medicine; Visit Provider Internal Medicine
DX: E78.00 Pure hypercholesterolemia, unspecified (principal); E55.9 Vitamin D deficiency, unspecified; E78.5 Hyperlipidemia, unspecified
CPT/HCPCS: 36415; 80053; 80061; 82306

== ENCOUNTER 2023-03-28 10:44 | Outpatient (AMB) | payer MEDICARE, MEDICAID, SELFPAY ==
[2023-03-28 11:08] VITALS: BP 130/86; BMI 32.8
--- NOTE | 2023-03-28 11:08 | MHC.PC.OV ---
Vital Signs 03/28/23 11:08 Height 5 ft 3 in Weight 185 lb BMI 32.8 BP 130/86 Blood Pressure Location Lt brachial Position Sitting Intake Visit Reasons: bp Intake Note: Patient here for a folow up BP Agile Java Developer Required: No Accompanied by: Self / Same As Patient Allergies aspirin [ASPIRIN] Allergy (Intermediate, Verified 03/28/23 11:34) GI UPSET, stomach upset Medication List - Last Reconciled 03/28/23 by Kelli Huffman MD acetaminophen ER (Mapap Arthritis Pain) 1,300 mg (2 x 650 mg) PO Q8H PRN 30 days atorvastatin 20 mg PO BEDTIME 90 days cholecalciferol (vitamin D3) 25 mcg PO DAILY 90 days fluticasone propionate 50 mcg/actuation 1 spray intranasal DAILY hydrochlorothiazide 50 mg PO DAILY levonorgestrel (Mirena) 1 device intrauterine lisinopril 20 mg PO DAILY 90 days psyllium husk (Metamucil) 1 tbsp PO DAILY Tobacco use date assessed: 07/19/22 Fall risk assessment: No Falls in past year Last assessed Fall Risk: 03/28/23 Dental Screening Dental Screen Date: 03/28/23 Did you have a dental visit in the last 12 months?: No Did you have a dental problem in the last 6 months where you did not have access to dental care?: No Was dental information given to patient?: Patient has dentist HPI HPI Comments History of Present Illness Details This is a 72-year-old female with hypertension, dyslipidemia and low vitamin-D that comes today for follow-up on her conditions. Blood pressure stable. Cholesterol well control and she has discontinue statins for few months. On vitamin-D supplements for low vitamin-D. Had an MRI of the kidney showing of right renal lesion that has increased in size which might be a renal neoplasm and has Urology appointment next week for this matter. No chest pain or shortness of breath. COUNTS INCLUDE 234 BEDS AT THE [facility] Medical History (Updated 11/24/22 @ 10:14 by Kelli Huffman MD) Class 1 obesity with body mass index (BMI) of 34.0 to 34.9 in adult Renal neoplasm Endometrium, polyp LGSIL (low grade squamous intraepithelial dysplasia) Endometrial hyperplasia Hypovitaminosis D Dyslipidemia Palpitations Essential hypertension Surgical History History of esophagogastroduodenoscopy (EGD) History of colonoscopy History of cholecystectomy History of hysteroscopy Family History Father Leukemia Mother Brain tumor Sister Diabetes Heart problem Sister Renal failure Brother Stroke Brother Hypertension Family/Other FH: mental illness Maternal Uncle Paranoia Family/Other Breast cancer Social History Household Members: Spouse Household Members Other:: daughter Housing: House Alcohol intake: never Patient Tobacco Use Status: Never used Tobacco e-Cigarette/Vaping Use: Never Used Second Hand Smoke Exposure: No service: No Current occupational status: retired Sexual orientation: Straight/Heterosexual Gender identity: Female Cognitive needs: No Hearing needs: No Vision needs: Yes Female Reproductive History Menstrual Age of Menarche: 16 Questionnaire Thrive Questionnaire Date Thrive assessed: 07/19/22 MODE-7 AMB Questionnaire MODE-7 Date MODE - 7 assessed: 07/19/22 Source: Developed by Drs. Jose Armando Julio, [employer], Aime Rojo and colleagues, with an educational smooth from [employer]. Review of Systems Const All systems reviewed & are unremarkable except as noted in HPI and below Eyes Reports no additional complaints, Denies change in vision and Denies other visual disturbances Card Denies chest pain at rest, Denies chest pain with activity, Denies edema, Denies irregular heart rhythm, Denies claudication, Denies dyspnea, Denies dyspnea on exertion, Denies orthopnea, Denies paroxysmal nocturnal dyspnea and Denies slow heart rate Resp Denies cough, Denies dyspnea and Denies dyspnea on exertion GI Denies abdominal pain, Denies change in bowel habits, Denies excessive flatus, Denies nausea and Denies vomiting Denies urinary incontinence, Denies urinary hesitancy and Denies urinary urgency Musc Denies abnormal gait, Denies atrophy, Denies deformity and Denies limited range of motion Skin/Breast Denies bleeding lesions, Denies changing lesions and Denies rash Neuro Denies abnormal gait and Denies lack of coordination Physical exam (Primary Care) Vital Signs: Last Vital Signs BP 130/86 03/28/23 11:08 BMI result Body Mass Index 32.8 Tobacco/Smoking Status: Tobacco use Status Tobacco use date assessed 07/19/22 03/28/23 11:12 Patient Tobacco Use Status Never used Tobacco 03/28/23 11:12 e-Cigarette/Vaping Use Never Used 03/28/23 11:12 Thrive Assessment: Date of Thrive Assessment Date Thrive assessed 07/19/22 03/28/23 11:12 Eyes General: appearance normal, both eyes and all related structures Eyelids: Yes eyelids normal Conjunctivae: conjunctivae normal Neck Neck: Yes normal visual inspection and Yes supple Resp Effort & Inspection: normal respiratory effort Auscultation: clear to auscultation bilaterally Cardio Jugular venous distension: no JVD Rate: regular rate Rhythm: regular rhythm Heart sounds: S1 normal heart sound present and S2 normal heart sound present Extrem General: Yes full ROM Assessment and Plan Assessment & Plan (1) Essential hypertension: Code(s): I10 - Essential (primary) hypertension Plan: Continue lisinopril hydrochlorothiazide. Blood pressure goal is equal or less than 130/80. (2) Hypovitaminosis D: Code(s): E55.9 - Vitamin D deficiency, unspecified Plan: Continue vitamin-D supplement (3) Dyslipidemia: Code(s): E78.5 - Hyperlipidemia, unspecified Plan: Continue low-cholesterol diet. (4) Renal neoplasm: Code(s): D49.519 - Neoplasm of unspecified behavior of unspecified kidney Plan: Follow-up with Urology next week. Medications: Discontinued atorvastatin Discontinued Reason: Patient Refused 20 mg PO BEDTIME 90 days 90 tabs 1RF Coding Level of Care Code Est Pt Level 4 (57792) Diagnoses Essential hypertension I10 Hypovitaminosis D E55.9 Dyslipidemia E78.5 Renal neoplasm D49.519 Time Spent (min) 20
== END 2023-03-28 11:42 | disposition home or self-care (01) ==
PROVIDERS: PCP Internal Medicine; Visit Provider Internal Medicine
DX: I10 Essential (primary) hypertension (principal); E55.9 Vitamin D deficiency, unspecified; E78.5 Hyperlipidemia, unspecified; D49.519 Neoplasm of unspecified behavior of unspecified kidney
CPT/HCPCS: 99214

== ENCOUNTER 2023-04-04 11:12 | Outpatient (AMB) | payer MEDICARE, MEDICAID, SELFPAY ==
--- NOTE | 2023-04-04 11:17 | MHC.OFFVIS ---
Intake Intake Visit Reasons: 1Y MRI(set) Intake Note: Patient presents today for a follow-up on MRI Results: Meds- None Allergies to Antibiotic- No Known Allergies Blood Thinner- None Cdl Flatbed Truck Driver Required: Yes Cdl Flatbed Truck Driver Language: Cook Islander Accompanied by: Self / Same As Patient Allergies aspirin [ASPIRIN] Allergy (Intermediate, Verified 04/04/23 11:20) GI UPSET, stomach upset HPI HPI Comments History of Present Illness Details Yenifer is a very pleasant female. Cook Islander speaker. She is a patient of Dr. Huffman. She is seen for the following urologic. - renal cyst Cook Islander translation provided in office by qualified biomedical engineering supervisor Review current imaging MRI says no changes Two year follow-up imaging Renal cyst and question of angiomyolipoma Prior imaging with multiple renal cysts and question of 1.6 cm AML on upper pole right kidney Imaging - 04/14 renal ultrasound with multiple bilateral renal cysts up to 1.5 cm and question of 1.6 cm mL upper pole right kidney - 12/16 MRI - 1.1 x 0.8 x 1.1 cm enhancing upper pole right renal lesion. This lesionhas slightly increased in size in size relative to 2017 [facility] Medical History Class 1 obesity with body mass index (BMI) of 34.0 to 34.9 in adult Renal neoplasm Endometrium, polyp LGSIL (low grade squamous intraepithelial dysplasia) Endometrial hyperplasia Hypovitaminosis D Dyslipidemia Palpitations Essential hypertension Surgical History History of esophagogastroduodenoscopy (EGD) History of colonoscopy History of cholecystectomy History of hysteroscopy Family History Father Leukemia Mother Brain tumor Sister Diabetes Heart problem Sister Renal failure Brother Stroke Brother Hypertension Family/Other FH: mental illness Maternal Uncle Paranoia Family/Other Breast cancer Social History Household Members: Spouse Household Members Other:: daughter Housing: House Alcohol intake: never Patient Tobacco Use Status: Never used Tobacco e-Cigarette/Vaping Use: Never Used Second Hand Smoke Exposure: No service: No Current occupational status: retired Sexual orientation: Straight/Heterosexual Gender identity: Female Cognitive needs: No Hearing needs: No Vision needs: Yes Female Reproductive History Menstrual Age of Menarche: 16 Review of Systems Const Denies chills and Denies fever(s) Card Reports no additional complaints and Denies syncope Resp Denies cough GI Denies abdominal pain and Denies heartburn Reports as per HPI and Denies change in libido Neuro Denies syncope Psych Denies change in libido Endo Denies change in libido Physical Exam Const General: cooperative, healthy appearing, comfortable and no acute distress Orientation/consciousness: patient oriented x3 HEENT Face and sinus: Yes normal facial exam Mouth: moist mucous membranes Neck Neck: Yes normal visual inspection, Yes full ROM and Yes trachea midline Chest Chest palpation & inspection: normal inspection of the chest Resp Effort & Inspection: normal respiratory effort, able to speak in complete sentences and no respiratory distress GI Inspection: Yes normal to inspection Back/Spine/Pelvis Cervical Spine: normal cervical lordosis Thoracic/Lumbar Spine: thoracic and lumbar spine normal to inspection Skin General skin exam: no rashes or lesions noted Neuro General: patient oriented x3, gait normal, tone normal and moves all extremities Extrem General: Yes normal to inspection and Yes capillary refill normal Assessment & Plan Assessment & Plan (1) Angiomyolipoma: Code(s): D17.9 - Benign lipomatous neoplasm, unspecified Plan 2 year follow-up Patient Instructions: Imaging studies, laboratory and physical exam results were discussed and reviewed in detail. No major barriers to patient understanding were identified. An opportunity to ask questions regarding the treatment plan was provided. All questions were answered. The patient expressed understanding and agreement with the above treatment plan. The patient is aware they should contact our office by phone for worsening of their current condition or the appearance of new urologic symptoms. Compliance is encouraged with any medications and followup testing that is ordered. It is a privilege to participate in the urologic care of your patient. If you have any questions or concerns regarding treatment for the above conditions, or other urologic issues, please do not hesitate to contact me. The office telephone contact is [phone]. This note is constructed using voice recognition software. While every effort has been made to ensure accuracy manager international errors may have been included. Yours sincerely, Dr Fantasma Wayne MD, [facility] - Urology Providers of Expert, Compassionate Care for the Genitourinary System Coding Level of Care Code Est Pt Level 4 (50872) Diagnoses Angiomyolipoma D17.9
== END 2023-04-04 12:27 | disposition home or self-care (01) ==
PROVIDERS: PCP Internal Medicine; Visit Provider Urology
DX: D17.9 Benign lipomatous neoplasm, unspecified (principal)
CPT/HCPCS: 99213

== ENCOUNTER → 2023-04-04 11:12 | Outpatient (BNVA) | payer MEDICARE, MEDICAID, SELFPAY | PROVIDERS: Visit Provider Urology | DX: N28.1 Cyst of kidney, acquired (principal); D17.9 Benign lipomatous neoplasm, unspecified | CPT/HCPCS: 99212 ==

== ENCOUNTER 2023-06-06 09:15 | Outpatient (REF) | payer MEDICARE, MEDICAID, SELFPAY ==
[2023-06-09 02:04] LABS: HPV mRNA E6/E7 rflx Not Detected (Not Detected)
== END 2023-06-06 09:16 | disposition home or self-care (01) ==
LOC: HO.LNP 09:15
PROVIDERS: PCP Internal Medicine; Visit Provider Obstetrics & Gynecology
DX: Z01.419 Encounter for gynecological examination (general) (routine) without abnormal findings (principal); R31.29 Other microscopic hematuria; R10.2 Pelvic and perineal pain; Z78.0 Asymptomatic menopausal state; Z87.42 Personal history of other diseases of the female genital tract
CPT/HCPCS: 58301; 81002; 87086; 87624; 88142; 99397

== ENCOUNTER 2023-06-06 09:15 | Outpatient (AMB) | payer MEDICARE, MEDICAID, SELFPAY ==
--- NOTE | 2023-06-06 09:26 | MHC.OFFVIS ---
Intake Vital Signs 06/06/23 09:30 Height 5 ft 3 in Weight 182 lb 15.739 oz BMI 32.4 BP 122/76 Intake Visit Reasons: [employer] annual exam Media Services Director Required: Yes Media Services Director Language: Training Director Name: Wendy VELAZQUEZ Information Interpreted: non-clinical & clinical Arts And Sciences Dean: Arts And Sciences Dean Present (Wendy VELAZQUEZ) Accompanied by: Self / Same As Patient Allergies aspirin [ASPIRIN] Allergy (Intermediate, Verified 06/06/23 09:33) GI UPSET, stomach upset Post menopausal: Yes HPI HPI Comments History of Present Illness Details Presenting for annual exam. The patient is complaining of right pelvic side pain no associated urinary or GI symptoms, no vaginal discharge or bleeding. The patient has history of endometrial hyperplasia in endometrial polyp in 12/2017, after which Mirena IUD was inserted, repeat EMB in 03/16 was negative Last Pap/HPV was negative in 12/14, the patient had ascus/HPV positive, colpo biopsy showed SHELDON 1 in 07/15 Last Mammogram was BI-RADS 1 in 07/18 Last Colonoscopy was done in 06/15, the recommendation was to repeat in 10 years Last DEXA scan was done in 06/15 [facility] Medical History Class 1 obesity with body mass index (BMI) of 34.0 to 34.9 in adult Renal neoplasm Endometrium, polyp LGSIL (low grade squamous intraepithelial dysplasia) Endometrial hyperplasia Hypovitaminosis D Dyslipidemia Palpitations Essential hypertension Surgical History History of esophagogastroduodenoscopy (EGD) History of colonoscopy History of cholecystectomy History of hysteroscopy Family History Father Leukemia Mother Brain tumor Sister Diabetes Heart problem Sister Renal failure Brother Stroke Brother Hypertension Family/Other FH: mental illness Maternal Uncle Paranoia Family/Other Breast cancer Social History Household Members: Spouse Household Members Other:: daughter Housing: House Alcohol intake: never Patient Tobacco Use Status: Never used Tobacco e-Cigarette/Vaping Use: Never Used Second Hand Smoke Exposure: No service: No Current occupational status: retired Sexual orientation: Straight/Heterosexual Gender identity: Female Cognitive needs: No Hearing needs: No Vision needs: Yes Female Reproductive History Menstrual Age of Menarche: 16 Menopause type: natural Total pregnancies: 5 Full term: 4 Number of Living Children: 4 Ab spontaneous: 1 Date of last pap smear: 12/07/20 Date of Mammogram: 07/07/22 Review of Systems Const All systems reviewed & are unremarkable except as noted in HPI and below Card Reports as per HPI Resp Reports as per HPI GI Reports as per HPI and Reports no additional complaints Reports as per HPI Physical Exam Vital Signs: Last Vital Signs BP 122/76 06/06/23 09:30 BMI result Body Mass Index 32.4 Const General: cooperative, healthy appearing and comfortable Chest Chest palpation & inspection: normal inspection of the chest and normal palpation of entire chest wall Breast/axilla inspection: normal inspection of the breasts and normal inspection of the axillae Breast/axilla palpation: normal palpation of the breasts, normal palpation of the axillae and no axillary lymphadenopathy Resp Effort & Inspection: normal respiratory effort Auscultation: clear to auscultation bilaterally Percussion: percussion normal Cardio Palpation: normal PMI Rate: regular rate Rhythm: regular rhythm Heart sounds: no murmurs and no rubs Peripheral pulses: Peripheral pulses 2+ throughout GI Inspection: Yes normal to inspection Palpation (GI): Soft to palpation, nontender, no guarding, not rigid and No hepatosplenomegaly present Percussion: Yes normal to percussion Auscultation: normal bowel sounds Rectal Exam - Female: deferred General: Yes bladder normal to palpation External Female Exam: No lesion Speculum Exam - Vagina: normal appearance of the vagina, normal palpation, normal vaginal discharge and not erythematous Speculum Exam - Cervix: normal appearance of the cervix and normal palpation Bimanual exam- vagina & uterus: normal bimanual exam, normal palpation, uterine size normal, bladder normal to palpation, consistency normal and normal palpation Bimanual Exam- Adnexa, other: normal adnexae, no masses and no tenderness Office Procedures IUD Insert/Removal Details Details: Counseling/Consent: After discussing with the patient the risks of the procedure including bleeding, infection, scar tissue formation, , possible injury to blood vessels or nerves, chronic arm pain, blood transfusion, and irregular unpredictable bleeding Alternative options were discussed with the patient including but not limited: Do nothing. The patient signed the consent and agreed with the plan; all questions answered. Preop dx: History of endometrial hyperplasia in polyp in 2018 Op: Mirena IUD removal Post op dx: same EBL= 10 cc Procedure: The patient was put in the dorsal lithotomy position a speculum was inserted in the vagina the IUD thread identified. Using a Jessica clamp the thread was grasped and the IUD pulled out with no complications. The patient tolerated the procedure well and was advised to use a different method for contraception. Discharge instructions: Instructions were given to the pt to call if temp>100.4, abdominal pain heavy vaginal bleeding, n/v occur. The patient verbalized understanding and all questions answered. This note was generated with a voice recognition program. Some errors may have been overlooked during the review of this note. Sometimes these errors may affect the content or meaning of a given sentence. [id number] Removal Procedure code (CPT) selection complete Assessment & Plan Assessment & Plan (1) Well woman exam: Comment: History of SHELDON 1 in 2019 followed by normal co testing in 2020 Code(s): Z01.419 - Encounter for gynecological examination (general) (routine) without abnormal findings Plan: Co testing not indicated since the patient 's age is above 65 with no history of abnormal Pap smears last 25 years. Counseled the patient about the recommended dietary allowance of 1200 mg of Calcium & 800 IU of vitamin D. Mammogram scheduled by the patient in 07/19 Will order DEXA scan . The patient was instructed to perform monthly self-breast exams and to schedule a 2 week DEXA scan follow-up appointment and an annual exam in a year; All questions answered and the patient verbalized understanding. (2) History of endometrial hyperplasia: Comment: In endometrial polyp in 2018, on Mirena IUD Code(s): Z87.42 - Personal history of other diseases of the female genital tract Plan: Recommended repeat endometrial biopsy, check the results and treat accordingly. Instructions given the patient to schedule a 2 week appointment for EMB. All questions answered, the patient verbalized understanding (3) Pelvic pain: Code(s): R10.2 - Pelvic and perineal pain Plan: Urine dip done in the office showed microscopic blood. pelvic ultrasound ordered. Discussed with the patient the differential diagnosis of pelvic pain including but not limited to adnexal, uterine masses, pelvic infections (PID), GI the (Irritable bowel syndrome, diverticulitis, others), musculoskeletal, myofascial pain abdominal wall , adhesions, psychological and others causes. Will check results and treat accordingly. All questions answered, the patient verbalized understanding. Instructed the patient to schedule follow-up appointment in 2 weeks (4) Encounter for IUD removal: Code(s): Z30.432 - Encounter for removal of intrauterine contraceptive device Plan: Cyst Mirena IUD was inserted in 12/2017, it is FDA approved for 5 years for progesterone treatment, recommended Mirena IUD to be removed, IUD removed, see procedure note. Will check EMB and treat accordingly (5) Microscopic hematuria: Code(s): R31.29 - Other microscopic hematuria Plan: Urine dip in the office showed microscopic hematuria, will send urine for culture, repeat urine dip in 2 weeks if persistent microscopic hematuria with negative urine culture will proceed with CT scan of abdomen pelvis and referral to Urology. Instructions given the patient to schedule a 2 week repeat urine dip appointment. All questions answered, the patient verbalized understanding Orders: Orders XR DEXA axial skeleton Today Z78.0 - Asymptomatic menopausal state US pelvic and transvaginal Today R10.2 - Pelvic and perineal pain Coding Level of Care Code Procedure Only Diagnoses Well woman exam Z01.419 History of endometrial hyperplasia Z87.42 Pelvic pain R10.2 Encounter for IUD removal Z30.432 Microscopic hematuria R31.29 CPT Codes Details - CPT: 94712-FIO Removal ([id number])
[2023-06-06 09:30] VITALS: BP 122/76; BMI 32.4
== END 2023-06-06 10:28 | disposition home or self-care (01) ==
LOC: HO.HWS 09:15
PROVIDERS: PCP Internal Medicine; Visit Provider Obstetrics & Gynecology
DX: Z01.419 Encounter for gynecological examination (general) (routine) without abnormal findings (principal); R10.2 Pelvic and perineal pain; R31.29 Other microscopic hematuria; Z30.432 Encounter for removal of intrauterine contraceptive device; Z87.42 Personal history of other diseases of the female genital tract
CPT/HCPCS: 58301; 99397

== ENCOUNTER 2023-07-13 09:55 | Outpatient (REF) | payer MEDICARE, MEDICAID, SELFPAY | END 2023-07-13 09:56 | disposition home or self-care (01) | LOC: HO.MAMMO 09:55 | PROVIDERS: PCP Internal Medicine; Visit Provider Internal Medicine | DX: Z12.31 Encounter for screening mammogram for malignant neoplasm of breast (principal) | CPT/HCPCS: 77063; 77067 ==

== ENCOUNTER → 2023-07-13 10:15 | Outpatient (BNV) | payer MEDICARE, MEDICAID, SELFPAY | PROVIDERS: PCP Internal Medicine; Visit Provider Radiology Diagnostic Radiology | DX: Z12.31 Encounter for screening mammogram for malignant neoplasm of breast (principal) | CPT/HCPCS: 77063; 77067 ==

== ENCOUNTER 2023-07-14 10:22 | Outpatient (REF) | payer MEDICARE, MEDICAID, SELFPAY ==
--- NOTE | ~2023-07-14 | US_ITS ---
EXAMINATION: US PELVIS CLINICAL INFORMATION: Pelvic and perineal pain. Last menstrual period age of 52. Postmenopausal. COMPARISON: CT abdomen and pelvis 01/31/2022. Pelvic ultrasound 10/24/2017. TECHNIQUE: Ultrasound of the pelvis is performed using both transabdominal and transvaginal transducers along with Doppler. Transvaginal imaging is performed due to inadequate visualization transabdominally. Limited visualization due to bowel gas. FINDINGS: Uterus measures 7.9 x 2.9 x 5.2 cm. Endometrial thickness is 0.4 cm. No significant free fluid. Heterogeneous uterus. 2.1 x 2.0 x 1.8 cm right fibroid with coarse calcifications. Previous ultrasound demonstrated a 2.3 x 2.0 x 2.0 cm fibroid. No significant free fluid. Limited views of the bilateral ovaries on transvaginal ultrasound images. Bilateral ovaries are grossly unremarkable in echogenicity on transabdominal ultrasound images. Right ovary measures 1.9 x 1.7 x 1.7 cm, volume 2.9 mL. Left ovary measures 1.7 x 1.5 x 1.1 cm, volume 1.5 mL. US/US pelvic and transvaginal IMPRESSION: 1. Heterogeneous uterus with 2.1 cm right fibroid similar in size. 2. Endometrial thickness is 0.4 cm. Gynecologic consultation recommended to determine further management including possible biopsy for this postmenopausal patient with pelvic pain. 3. Limited visualization due to bowel gas.
--- NOTE | ~2023-07-14 | MM_ITS ---
EXAMINATION: BONE DENSITOMETRY CLINICAL INDICATION: Menopause. COMPARISON: Baseline BD dated 06/22/2021. TECHNIQUE: Using a GT Solar DXA System (software version: 13.1) manufactured by [employer], dual-energy x-ray absorptiometry was performed of the lumbar spine and left hip. The images are of good technical quality. Summary results are attached. FINDINGS: LEFT FEMUR, NECK: Current: BMD 0.927 g/cm2, Z-score 0.5, T-score -0.8, normal. Baseline: BMD 0.946 g/cm2. LEFT FEMUR, TOTAL: Current: BMD 1.084 g/cm2, Z-score 1.7, T-score 0.6, normal, 2.3% decrease from baseline (<5% change is not significant). Baseline: BMD 1.109 g/cm2. AP SPINE L1-L4: Current: BMD 1.119 g/cm2, Z-score 0.6, T-score -0.5, normal, 1.3% increase from baseline (<5% change is not significant). Baseline: BMD 1.105 g/cm2. IDENTIFIED RISK FACTORS: Menopause. HISTORY OF FRACTURE: None listed. MEDICATIONS: Vitamin D. MM/XR DEXA axial skeleton IMPRESSION: 1. DIAGNOSIS: Normal bone density based on the lowest T-score value of -0.8 in the femoral neck applying World Health Organization criteria. 2. 10-YEAR FRACTURE RISK PREDICTION, FRAX: According to the guidelines, FRAX calculation should only be performed on patients in the osteopenia bone density category. Therefore, FRAX was not performed on this patient. 3. Treatment Recommendations: NOF guidelines recommend consideration for treatment in postmenopausal women and men age 50 and older presenting with the following: -A hip or vertebral (clinical or morphometric) fracture. -T-score less than or equal to -2.5 at the femoral neck or spine after appropriate evaluation to exclude secondary causes. -Low bone mass at the hip or spine and a 10-year fracture probability by FRAX of greater than or equal to 3% for hip fracture or greater than or equal to 20% for major osteoporotic fracture based on the [place] adapted WHO algorithm. 4. Other Recommendations: All treatment decisions require clinical judgment and consideration of individual patient factors, including patient preferences, comorbidities, previous drug use, risk factors not captured in the FRAX model (e.g. frailty, falls, vitamin D deficiency, increased bone turnover, interval significant decline in bone density) and possible under or overestimation of fracture risk by FRAX. FUTURE SCAN RECOMMENDATION: People with diagnosed cases of osteoporosis or at high risk for fracture should have regular bone mineral density tests. For patients eligible for Medicare, routine testing is allowed once every 2 years. The testing frequency can be increased to one year for patients who have rapidly progressing disease, those who are receiving or discontinuing medical therapy to restore bone mass, or have additional risk factors.
== END 2023-07-14 10:23 | disposition home or self-care (01) ==
LOC: HO.US 10:22
PROVIDERS: PCP Internal Medicine; Visit Provider Obstetrics & Gynecology
DX: R10.2 Pelvic and perineal pain (principal); Z13.820 Encounter for screening for osteoporosis; Z78.0 Asymptomatic menopausal state
CPT/HCPCS: 76830; 76856; 77080

== ENCOUNTER 2023-08-01 10:45 | Outpatient (AMB) | payer MEDICARE, MEDICAID, SELFPAY ==
[2023-08-01 11:02] VITALS: BP 140/72; BMI 32.2
--- NOTE | 2023-08-01 11:02 | A.OFFVIS_ITS ---
Intake Vital Signs 08/01/23 11:02 Height 5 ft 3 in Weight 182 lb BMI 32.2 BP 140/72 H Intake Visit Reasons: U/S follow up/EMB/DExa Results Extension Service Advisor Required: Yes Extension Service Advisor Language: Geospatial Intelligence Analyst Name: Wendy Kelsey Information Interpreted: non-clinical & clinical Photonics Engineering Technician: Photonics Engineering Technician Present (Wendy) Allergies aspirin [ASPIRIN] Allergy (Intermediate, Verified 08/01/23 11:07) GI UPSET, stomach upset Is last menstrual period known: No Post menopausal: Yes Patient : No HPI HPI Comments History of Present Illness Details Presenting for follow-up with no complaints. Co testing was negative Mamamo BIRADS 1 UCx was negative Pelvic ultrasound showed the following: Uterus measures 7.9 x 2.9 x 5.2 cm. Endometrial thickness is 0.4 cm. No significant free fluid. Heterogeneous uterus. 2.1 x 2.0 x 1.8 cm right fibroid with co arse calcifications. Previous ultrasound demonstrated a 2.3 x 2.0 x 2.0 cm fibroid. No significant free fluid. Limited views of the bilateral ovaries on transvaginal ultrasound images. Bilateral ovaries are grossly unremarkable in echogenicity on transabdominal ultrasound images. Right ovary measures 1.9 x 1.7 x 1.7 cm, volume 2.9 mL. Left ovary measures 1.7 x 1.5 x 1.1 cm, volume 1.5 mL. [facility] Medical History Class 1 obesity with body mass index (BMI) of 34.0 to 34.9 in adult Renal neoplasm Endometrium, polyp LGSIL (low grade squamous intraepithelial dysplasia) Endometrial hyperplasia Hypovitaminosis D Dyslipidemia Palpitations Essential hypertension Surgical History History of esophagogastroduodenoscopy (EGD) History of colonoscopy History of cholecystectomy History of hysteroscopy Family History Father Leukemia Mother Brain tumor Sister Diabetes Heart problem Sister Renal failure Brother Stroke Brother Hypertension Family/Other FH: mental illness Maternal Uncle Paranoia Family/Other Breast cancer Social History Household Members: Spouse Household Members Other:: daughter Housing: House Alcohol intake: never Patient Tobacco Use Status: Never used Tobacco e-Cigarette/Vaping Use: Never Used Second Hand Smoke Exposure: No service: No Current occupational status: retired Sexual orientation: Straight/Heterosexual Gender identity: Female Cognitive needs: No Hearing needs: No Vision needs: Yes Female Reproductive History Menstrual Age of Menarche: 16 control method: none Review of Systems Const All systems reviewed & are unremarkable except as noted in HPI and below Reports as per HPI and Reports no additional complaints GI Reports no additional complaints Reports no additional complaints Physical Exam Vital Signs: Last Vital Signs BP 140/72 H 08/01/23 11:02 BMI result Body Mass Index 32.2 Results AMB Urinalysis, Automated UA Leukoctes 0 Raúl/uL Last Edit by MARCUS Diaz on 08/01/23 11:23 UA Nitrite Negative Last Edit by MARCUS Diaz on 08/01/23 11:23 UA Urobilinogen 0 mg/dL Last Edit by MARCUS Diaz on 08/01/23 11:23 UA Protein 0 mg/dL Last Edit by MARCUS Diaz on 08/01/23 11:23 UA pH 6.5 Last Edit by MARCUS Diaz on 08/01/23 11:23 UA Blood 0.5 Nazario/uL Last Edit by MARCUS Diaz on 08/01/23 11:23 UA Specific Thompson 1.015 Last Edit by MARCUS Diaz on 08/01/23 11: 23 UA Ketone Negative Last Edit by MARCUS Diaz on 08/01/23 11:23 UA Bilirubin 0 mg/dL Last Edit by Arvin Rousseau Twila on 08/01/23 11:23 UA Glucose 0 mg/dL Last Edit by MARCUS Diaz on 08/01/23 11:23 Assessment & Plan Assessment & Plan (1) Microscopic hematuria: Comment: Abnormal kidney MRI in 03/18 Code(s): R31.29 - Other microscopic hematuria Plan: Repeat urine dip showed persistent microscopic hematuria within negative urine culture, will refer to urology for further management (2) History of endometrial hyperplasia: Comment: In endometrial polyp in 2018, on Mirena IUD Code(s): Z87.42 - Personal history of other diseases of the female genital tract Plan: Since endometrial thickness by ultrasound is 4 mm, which is associated with negative predictive value for endometrial pathology, the patient has no history of postmenopausal bleeding , there is no indication for endometrial biopsy. Instructions given the patient to call kyleigh in case of vaginal bleeding, will proceed with endometrial sampling to rule out endometrial pathology including hyperplasia or malignancy.. In addition, discussed with the patient the pros and cons of reinserting another Mirena IUD, the patient decided not to have another Mirena IUD inserted. All questions answered, the patient verbalized understanding (3) Uterine myoma: Code(s): D25.9 - Leiomyoma of uterus, unspecified Plan: Discussed with the patient the findings on pelvic ultrasound & the risk of myosarcoma; discussed with the patient the options of treatment including expectant management versus hysterectomy; the pros and cons, risks benefits of each approach were discussed with the patient including the fact that in cases of myosarcoma, surgical treatment can lead to early diagnosis and positively affects the prognosis; after further discussion, the patient decided to proceed with expectant management. Will repeat pelvic ultrasound periodically. Instructions given to patient to call in case any of the following occurs: pressure symptoms, abnormal uterine bleeding, pelvic pain; and to schedule a future office follow-up appointment for reassessment and to order a repeat ultrasound . All questions answered, the patient verbalized understanding and agreed with the plan . Orders: Orders AMB Urinalysis Automated Today R31.29 - Other microscopic hematuria Referrals Urology Referral R31.29 - Other microscopic hematuria Coding Level of Care Code Est Pt Level 3 (39335) Diagnoses Microscopic hematuria R31.29 History of endometrial hyperplasia Z87.42 Uterine myoma D25.9
== END 2023-08-01 11:32 | disposition home or self-care (01) ==
LOC: HO.HWS 10:45
PROVIDERS: PCP Internal Medicine; Visit Provider Obstetrics & Gynecology
DX: R31.29 Other microscopic hematuria (principal); Z87.42 Personal history of other diseases of the female genital tract; D25.9 Leiomyoma of uterus, unspecified
CPT/HCPCS: 99213

== ENCOUNTER → 2023-08-01 10:45 | Outpatient (BNVA) | payer MEDICARE, MEDICAID, SELFPAY | PROVIDERS: PCP Internal Medicine; Visit Provider Obstetrics & Gynecology | DX: R31.29 Other microscopic hematuria (principal); D25.9 Leiomyoma of uterus, unspecified; Z87.42 Personal history of other diseases of the female genital tract | CPT/HCPCS: 81003; 99212 ==

== ENCOUNTER 2023-09-01 09:32 | Outpatient (REF) | payer OTHER, SELFPAY ==
[2023-09-01 11:20] LABS: Blood Urea Nitrogen 22 mg/dL (9-16); Estimated Glomerular Filt Rate 57
== END 2023-09-01 09:33 | disposition home or self-care (01) ==
LOC: HO.LAB 09:32
PROVIDERS: PCP Internal Medicine; Visit Provider Obstetrics & Gynecology
DX: D25.9 Leiomyoma of uterus, unspecified (principal)
CPT/HCPCS: 36415; 82565; 84520

== ENCOUNTER 2023-10-03 09:41 | Outpatient (REF) | payer OTHER, MEDICAID, SELFPAY ==
--- NOTE | ~2023-10-03 | CT_ITS ---
EXAMINATION: CT UROGRAM WITHOUT AND WITH CONTRAST CLINICAL INFORMATION: Reason for Exam MICROSCOPIC HEMATURA COMPARISON: 01/31/2022 MRI kidney dated 02/28/2023 TECHNIQUE: Helical scanning was performed with collimation through the abdomen and pelvis precontrast. Helical scanning was then repeated with submillimeter collimation through the abdomen and pelvis in the pyelogram phase with use of 85 mL of Omnipaque 300 intravenous contrast. Sagittal and coronal 2-D reconstructions were obtained. Multiple additional 3-D volume rendered images were obtained of the kidneys and collecting systems on an independent workstation under concurrent supervision. This CT examination was performed using dose optimization techniques as appropriate, variously including the following: *Automated exposure control *Adjustment of mA and/or kV according to patient size (this includes techniques or standardized protocols for targeted exams where dose is matched to indication/reason for exam; i.e. extremities or head) *Use of iterative reconstruction technique DLP: 768.14 mGy-cm FINDINGS: LUNG BASES: Unremarkable. ABDOMINAL AND PELVIC WALL: Unremarkable. LIVER AND BILIARY TREE: Hepatic steatosis. GALLBLADDER: Status post cholecystectomy. PANCREAS: Unremarkable. SPLEEN: Unremarkable. ADRENAL GLANDS: Unremarkable. KIDNEYS AND URETERS: Again seen arising from the posterior superior right renal pole is a heterogeneously enhancing 1.3 x 1.3 cm mass, slightly increased from prior MRI when it measured 1.1 cm, although this may be partially due to differences in technique. No hydronephrosis, hydroureter, or calculi seen. No perinephric stranding. No obvious mass lesion or filling defect is seen in the collecting systems or ureters. GASTROINTESTINAL TRACT: Unremarkable. Appendix is within normal limits. VASCULAR: Unremarkable. LYMPH NODES/PERITONEUM: There is nonspecific mistiness and stranding involving the midline mesentery with multiple mildly prominent mesenteric lymph nodes, similar to prior study. FREE FLUID: None. BLADDER: Unremarkable. PELVIC VISCERA: Unremarkable. OSSEOUS STRUCTURES: Degenerative changes of the spine. CT/CT abdomen pelvis wo/w IV con IMPRESSION: * Redemonstration of heterogeneously enhancing right renal mass, slightly increased in size from prior MRI, although this may be partially due to differences in technique. * Nonspecific mistiness and stranding involving the midline mesentery with multiple mildly prominent mesenteric lymph nodes, similar to prior study.
[2023-10-03] MEDS: iohexoL 350 MG/ML 100 ML INFUS..BTL 85 ML IV (10:52)
== END 2023-10-03 09:42 | disposition home or self-care (01) ==
LOC: HO.CT 09:41
PROVIDERS: PCP Internal Medicine; Visit Provider Obstetrics & Gynecology
DX: R31.29 Other microscopic hematuria (principal)
CPT/HCPCS: 74178; Q9967

== ENCOUNTER 2023-10-19 11:29 | Outpatient (AMB) | payer OTHER, SELFPAY ==
--- NOTE | 2023-10-19 11:48 | MHC.OFFVIS ---
Vital Signs 10/19/23 11:52 Height 5 ft 3 in Weight 182 lb BMI 32.2 BP 132/80 Intake Visit Reasons: ct scan results Mechanical Tech Required: Yes Mechanical Tech Language: Tram Inspector Name: Wendy Kelsey Allergies aspirin [ASPIRIN] Allergy (Intermediate, Verified 10/19/23 11:53) GI UPSET, stomach upset Is last menstrual period known: No Post menopausal: Yes Patient : No HPI Comments Details: Presenting for CT follow-up. Recent CT scan of abdomen pelvis showed the following: IMPRESSION: * Redemonstration of heterogeneously enhancing right renal mass, slightly increased in size from prior MRI, although this may be partially due to differences in technique. * Nonspecific mistiness and stranding involving the midline mesentery with multiple mildly prominent mesenteric lymph nodes, similar to prior study. Urology referral was placed [facility] Medical History Class 1 obesity with body mass index (BMI) of 34.0 to 34.9 in adult Renal neoplasm Endometrium, polyp LGSIL (low grade squamous intraepithelial dysplasia) Endometrial hyperplasia Hypovitaminosis D Dyslipidemia Palpitations Essential hypertension Surgical History History of esophagogastroduodenoscopy (EGD) History of colonoscopy History of cholecystectomy History of hysteroscopy Family History Father Leukemia Mother Brain tumor Sister Diabetes Heart problem Sister Renal failure Brother Stroke Brother Hypertension Family/Other FH: mental illness Maternal Uncle Paranoia Family/Other Breast cancer Social History Household Members: Spouse Household Members Other:: daughter Housing: House Alcohol intake: never Patient Tobacco Use Status: Never used Tobacco e-Cigarette/Vaping Use: Never Used Second Hand Smoke Exposure: No Patient : No service: No Current occupational status: retired Sexual orientation: Straight/Heterosexual Gender identity: Female Cognitive needs: No Hearing needs: No Vision needs: Yes Female Reproductive History Menstrual Age of Menarche: 16 control method: none Date of last pap smear: 06/07/23 (negative) Review of Systems Const All systems reviewed & are unremarkable except as noted in HPI and below Reports as per HPI and Reports no additional complaints GI Reports no additional complaints Reports no additional complaints Physical Exam Vital Signs: Last Vital Signs BP 132/80 10/19/23 11:52 BMI result Body Mass Index 32.2 Assessment & Plan Assessment & Plan (1) Renal mass: Code(s): N28.89 - Other specified disorders of kidney and ureter Category: Medical Plan: Discussed with the patient the finding on CT scan , recommended to follow-up with urology discuss further management, all questions answered, the patient verbalized understanding and will schedule an appointment with urology Coding Level of Care Code Est Pt Level 3 (51472) Diagnoses Renal mass N28.89
[2023-10-19 11:52] VITALS: BP 132/80; BMI 32.2
== END 2023-10-19 12:14 | disposition home or self-care (01) ==
LOC: HO.HWS 11:29
PROVIDERS: PCP Internal Medicine; Visit Provider Obstetrics & Gynecology
DX: N28.89 Other specified disorders of kidney and ureter (principal)
CPT/HCPCS: 99213

== ENCOUNTER → 2023-10-19 11:29 | Outpatient (BNVA) | payer OTHER, MEDICAID, SELFPAY | PROVIDERS: PCP Internal Medicine; Visit Provider Obstetrics & Gynecology | DX: N28.89 Other specified disorders of kidney and ureter (principal) | CPT/HCPCS: 99212 ==

== ENCOUNTER 2023-11-16 10:05 | Outpatient (REF) | payer OTHER, SELFPAY | END 2023-11-16 10:06 | disposition home or self-care (01) | LOC: HO.LAB 10:05 | PROVIDERS: PCP Internal Medicine; Visit Provider Internal Medicine | DX: Z53.8 Procedure and treatment not carried out for other reasons (principal) | CPT/HCPCS: 36415 ==

== ENCOUNTER 2023-11-23 15:29 | Outpatient (AMB) | payer OTHER, SELFPAY ==
[2023-11-23 15:47] VITALS: BP 140/90; BMI 32.4
--- NOTE | 2023-11-23 15:47 | A.OFFPC_ITS ---
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 Required: No Accompanied by: Self / Same As Patient Allergies aspirin [ASPIRIN] Allergy (Intermediate, Verified 11/23/23 16:02) GI UPSET, stomach upset Medication List - Last Reconciled 11/23/23 by Kelli Huffman MD acetaminophen ER (Mapap Arthritis Pain) 1,300 mg (2 x 650 mg) PO Q8H PRN 30 days cholecalciferol (vitamin D3) 25 mcg PO DAILY 90 days fluticasone propionate 50 mcg/actuation 1 spray intranasal DAILY hydrochlorothiazide 50 mg PO DAILY levonorgestrel (Mirena) 1 device intrauterine lisinopril 20 mg PO DAILY 90 days psyllium husk (Metamucil) 1 tbsp PO DAILY Tobacco use date assessed: 11/23/23 Fall risk assessment: No Falls in past year Last assessed Fall Risk: 11/23/23 Dental Screening Dental Screen Date: 11/23/23 Did you have a dental visit in the last 12 months?: No Did you have a dental problem in the last 6 months where you did not have access to dental care?: No Was dental information given to patient?: Patient has dentist HPI HPI Comments History of Present Illness Details This is a 72-year-old female that comes for her physical exam. Last mammogram was 07/15/2023 and was normal. Last bone DXA scan was normal in 2023. Last Pap smear was normal in 2022. Last colonoscopy was 2022. No chest pain or shortness on breath. Mild depression due to brother dying 2 months ago. No chest pain or shortness on breath. She has obese with a BMI of 32.4 and was advised to diet and exercise to reach BMI goal less than 30. [facility] Medical History (Updated 11/23/23 @ 16:20 by Kelli Huffman MD) Class 1 obesity with body mass index (BMI) of 34.0 to 34.9 in adult Renal neoplasm Endometrium, polyp LGSIL (low grade squamous intraepithelial dysplasia) Endometrial hyperplasia Hypovitaminosis D Dyslipidemia Palpitations Essential hypertension Surgical History History of esophagogastroduodenoscopy (EGD) History of colonoscopy History of cholecystectomy History of hysteroscopy Family History Father Leukemia Mother Brain tumor Sister Diabetes Heart problem Sister Renal failure Brother Stroke Brother Hypertension Family/Other FH: mental illness Maternal Uncle Paranoia Family/Other Breast cancer Social History Household Members: Spouse Household Members Other:: daughter Housing: House Alcohol intake: never Patient Tobacco Use Status: Never used Tobacco e-Cigarette/Vaping Use: Never Used Second Hand Smoke Exposure: No service: No Current occupational status: retired Sexual orientation: Straight/Heterosexual Gender identity: Female Cognitive needs: No Hearing needs: No Vision needs: Yes Female Reproductive History Menstrual Age of Menarche: 16 Questionnaire PHQ-9 Over the last 2 weeks, how often have you been bothered by any of the following problems? 1. Little interest or pleasure in doing things: not at all 2. Feeling down, depressed, or hopeless: several days 3. Trouble falling or staying asleep, or sleeping too much: not at all 4. Feeling tired or having little energy: not at all 5. Poor appetite or overeating: not at all 6. Feeling bad about yourself - or that you are a failure or have let yourself or your family down: not at all 7. Trouble concentrating on things, such as reading the newspaper or watching television: not at all 8. Moving or speaking so slowly that other people could have noticed. Or the opposite - being so fidgety or restless that you have been moving around a lot more than usual: not at all 9. Thoughts that you would be better off or of hurting yourself in some way: not at all Total score: 1 Depression Screening Interpretation: Positive Depression Screening Follow-up: Existing condition and Follow-up Visit Requested Depression Screening Done: Yes 07858 - PHQ-9 Billing: Yes Source: Developed by Drs. Jose Armando Julio, Miriam Painting, Aime Rojo and colleagues, with an educational smooth from [employer]. Thrive Questionnaire Date Thrive assessed: 11/23/23 I am a: Patient What is your living situation today?: I have a steady place to live Within the past 12 months, did the food you bought not last and you didn't have the money to get more?: Never true Within the past 12 months, did you worry whether your food would run out before you got money to buy more?: Never true Do you have trouble paying for medicines?: No Do you have trouble getting transportation to medical appointments?: No Do you have trouble paying your heating and electricity bill?: No Do you have trouble taking care of your child, family member or friend?: No Do you have trouble with day-to-day activities such as bathing, preparing meals, shopping, managing finances, etc.?: No Are you currently unemployed and looking for a job?: No Are you interested in more education?: No Please select the resources that you would like help with: None Currently or been in a relationship where the following occur: no concerns reported THRIVE Score: 0 AUDIT C Alcohol Use Questionnaire (AUDIT-C) 1. How often do you have a drink containing alcohol?: Never Total Score: 0 MODE-7 AMB Questionnaire MODE-7 Date MODE - 7 assessed: 11/23/23 Feeling nervous, anxious, or on edge: 0 = Not at all Not being able to stop or control worryin = Not at all Worrying too much about different things: 0 = Not at all Trouble relaxin = Not at all Being so restless that it is hard to sit still: 0 = Not at all Becoming easily annoyed or irritable: 0 = Not at all Feeling afraid as if something awful might happen: 0 = Not at all Total MODE-7 score (0-4 normal; 5-9 mild; 10-14 moderate; 15-21 severe): 0 Source: Developed by Drs. Jose Armando Julio, Miriam Painting, Aime Rojo and colleagues, with an educational smooth from [employer]. MODE-7 Assessment Billing MODE-7 Assessment Tool: MODE-7 Assessment 21553 Review of Systems Const All systems reviewed & are unremarkable except as noted in HPI and below Card Denies chest pain at rest, Denies chest pain with activity, Denies edema, Denies irregular heart rhythm, Denies claudication, Denies dyspnea, Denies dyspnea on exertion, Denies orthopnea, Denies paroxysmal nocturnal dyspnea and Denies slow heart rate Resp Denies cough, Denies dyspnea and Denies dyspnea on exertion Neuro Denies confusion Psych Denies confusion Physical exam (Primary Care) Vital Signs: Last Vital Signs BP 140/90 H 11/23/23 15:47 BMI result Body Mass Index 32.4 BMI Assessment/Plan discussion: High BMI High, discussed plan: lifestyle, weight reduction, dietary and physical activity Tobacco/Smoking Status: Tobacco use Status Tobacco use date assessed 11/23/23 11/23/23 15:51 Patient Tobacco Use Status Never used Tobacco 11/23/23 15:51 e-Cigarette/Vaping Use Never Used 11/23/23 15:51 PHQ-9: PHQ-9 Score PHQ-9: Total score 1 11/23/23 15:51 Depression Screening Interpretation: Positive Depression Screening Follow-up: Existing condition and Follow-up Visit Requested Thrive Assessment: Date of Thrive Assessment Date Thrive assessed 11/23/23 11/23/23 15:51 Currently or been in a relationship where the following occur: no concerns reported Const General: No confusion Orientation/consciousness: patient oriented x3 and No confusion HENMT Head: Yes normal to inspection, Yes normocephalic and Yes atraumatic Ears: external ears normal Face and sinus: Yes sinuses nontender Mouth: lip normal Eyes General: appearance normal, both eyes and all related structures Eyelids: Yes eyelids normal Conjunctivae: conjunctivae normal Neck Neck: Yes normal visual inspection and Yes supple Resp Effort & Inspection: normal respiratory effort Auscultation: clear to auscultation bilaterally Cardio Jugular venous distension: no JVD Rate: regular rate Rhythm: regular rhythm Heart sounds: S1 normal heart sound present and S2 normal heart sound present GI Inspection: Yes normal to inspection Palpation (GI): Soft to palpation and nontender Auscultation: normal bowel sounds Skin General skin exam: no rashes or lesions noted Neuro General: patient oriented x3, no focal motor deficits and No confusion Extrem General: Yes full ROM Psych Appearance: grossly normal Assessment and Plan Assessment & Plan (1) Physical exam: Code(s): Z00.00 - Encounter for general adult medical examination without abnormal findings Plan: Repeat in a year. Orders: Orders Lipid Panel Today E78.5 - Hyperlipidemia, unspecified Comprehensive [place]. Panel Fast Today E78.5 - Hyperlipidemia, unspecified Coding Level of Care Code Est Pt Prev Care >65y(73149) Diagnoses Physical exam Z00.00 Additional Codes MODE-7 Assessment Billing - MODE-7 Assessment Tool: MODE-7 Assessment 29091 ([id number]) Time Spent (min) 33
[2023-11-23 16:02] VITALS: BP 135/80
== END 2023-11-23 16:17 | disposition home or self-care (01) ==
PROVIDERS: PCP Internal Medicine; Visit Provider Internal Medicine
DX: Z00.00 Encounter for general adult medical examination without abnormal findings (principal)
CPT/HCPCS: 99397

== ENCOUNTER 2023-11-30 09:28 | Outpatient (REF) | payer OTHER, SELFPAY ==
[2023-11-30 11:08] LABS: Alanine Aminotransferase 12 U/L (0-31); Albumin Level 4.4 g/dL (3.5-5.0); Alkaline Phosphatase 51 U/L (39-117); Anion Gap 10 (12-20); Aspartate Amino Transferase 18 U/L (5-31); Bilirubin Total 0.5 mg/dL (0.0-1.0); Blood Urea Nitrogen 21 mg/dL (9-16); Calcium 9.9 mg/dL (8.4-10.2); Carbon Dioxide 30 mmol/L (22-29); Chloride 105 mmol/L (96-108); Cholesterol 182 mg/dL (<200); Estimated Glomerular Filt Rate 58; Glucose Fasting 88 mg/dL (60-99); HDL Cholesterol 42 mg/dL (>40); LDL Cholesterol Calculated 113 mg/dL (<100); Potassium 3.2 mmol/L (3.3-5.1); Sodium 142 mmol/L (135-145); Total Protein 7.3 g/dL (6.5-8.0); Triglycerides 138 mg/dL (<150); Vitamin D 25-OH Total 32.4 ng/mL (>30)
== END 2023-11-30 09:29 | disposition home or self-care (01) ==
LOC: HO.LAB 09:28
PROVIDERS: PCP Internal Medicine; Visit Provider Internal Medicine
DX: E78.5 Hyperlipidemia, unspecified (principal); E55.9 Vitamin D deficiency, unspecified
CPT/HCPCS: 36415; 80053; 80061; 82306

== ENCOUNTER 2024-04-16 09:13 | Outpatient (REF) | payer MEDICARE, SELFPAY ==
[2024-04-16 10:53] LABS: Alanine Aminotransferase 26 U/L (0-31); Albumin Level 4.4 g/dL (3.5-5.0); Alkaline Phosphatase 54 U/L (39-117); Anion Gap 13 (12-20); Aspartate Amino Transferase 34 U/L (5-31); Bilirubin Total 0.5 mg/dL (0.0-1.0); Blood Urea Nitrogen 22 mg/dL (9-16); Calcium 9.8 mg/dL (8.4-10.2); Carbon Dioxide 28 mmol/L (22-29); Chloride 105 mmol/L (96-108); Cholesterol 192 mg/dL (<200); Estimated Glomerular Filt Rate > 60; Glucose Fasting 95 mg/dL (60-99); HDL Cholesterol 45 mg/dL (>40); LDL Cholesterol Calculated 116 mg/dL (<100); Potassium 3.9 mmol/L (3.3-5.1); Sodium 142 mmol/L (135-145); Total Protein 7.4 g/dL (6.5-8.0); Triglycerides 155 mg/dL (<150)
== END 2024-04-16 09:14 | disposition home or self-care (01) ==
LOC: HO.LAB 09:13
PROVIDERS: PCP Internal Medicine; Visit Provider Internal Medicine
DX: E78.00 Pure hypercholesterolemia, unspecified (principal); E78.5 Hyperlipidemia, unspecified
CPT/HCPCS: 36415; 80053; 80061

== ENCOUNTER 2024-04-19 10:14 | Outpatient (AMB) | payer MEDICARE, SELFPAY ==
[2024-04-19 10:39] VITALS: BP 130/76; PULSE 77; O2SAT 98; BMI 33.1
--- NOTE | 2024-04-19 10:39 | A.OFFPC_ITS ---
Vital Signs 04/19/24 10:39 Height 5 ft 3 in Weight 187 lb BMI 33.1 BP 130/76 Blood Pressure Location Lt brachial Position Sitting Pulse 77 Pulse Source Pulse Oximeter Pulse Oximetry (%) 98 Oxygen Delivery Method Room Air Intake Visit Reasons: bp,depression Allergies aspirin [ASPIRIN] Allergy (Intermediate, Verified 04/19/24 10:39) GI UPSET, stomach upset Medication List - Last Reconciled 04/19/24 by John Blanc MD acetaminophen ER (Mapap Arthritis Pain) 1,300 mg (2 x 650 mg) PO Q8H PRN 30 days cholecalciferol (vitamin D3) 25 mcg PO DAILY 90 days fluticasone propionate 50 mcg/actuation 1 spray intranasal DAILY hydrochlorothiazide 50 mg PO DAILY lisinopril 20 mg PO DAILY 90 days psyllium husk (Metamucil) 1 tbsp PO DAILY Tobacco use date assessed: 11/23/23 Fall risk assessment: No Falls in past year Last assessed Fall Risk: 04/19/24 Dental Screening Dental Screen Date: 11/23/23 HPI bp,depression HPI Details 73-year-old obese female with hypertensi on hypercholesterolemia being seen for the 1st time. Patient was last seen in October 2023 [id number] ([id number]) guyanese interpret ON LICENSE OF [facility] Medical History Class 1 obesity with body mass index (BMI) of 34.0 to 34.9 in adult Renal neoplasm Endometrium, polyp LGSIL (low grade squamous intraepithelial dysplasia) Endometrial hyperplasia Hypovitaminosis D Dyslipidemia Palpitations Essential hypertension Surgical History History of esophagogastroduodenoscopy (EGD) History of colonoscopy History of cholecystectomy History of hysteroscopy Family History Father Leukemia Mother Brain tumor Sister Diabetes Heart problem Sister Renal failure Brother Stroke Brother Hypertension Family/Other FH: mental illness Maternal Uncle Paranoia Family/Other Breast cancer Social History Household Members: Spouse Household Members Other:: daughter Housing: House Alcohol intake: never Patient Tobacco Use Status: Never used Tobacco Tobacco use type: Cigarette e-Cigarette/Vaping Use: Never Used Second Hand Smoke Exposure: No service: No Current occupational status: retired Sexual orientation: Straight/Heterosexual Gender identity: Female Cognitive needs: No Hearing needs: No Vision needs: Yes Female Reproductive History Menstrual Age of Menarche: 16 Questionnaire PHQ-9 Over the last 2 weeks, how often have you been bothered by any of the following problems? 1. Little interest or pleasure in doing things: not at all 2. Feeling down, depressed, or hopeless: not at all 3. Trouble falling or staying asleep, or sleeping too much: not at all 4. Feeling tired or having little energy: not at all 5. Poor appetite or overeating: not at all 6. Feeling bad about yourself - or that you are a failure or have let yourself or your family down: not at all 7. Trouble concentrating on things, such as reading the newspaper or watching television: not at all 8. Moving or speaking so slowly that other people could have noticed. Or the opposite - being so fidgety or restless that you have been moving around a lot more than usual: not at all 9. Thoughts that you would be better off or of hurting yourself in some way: not at all Total score: 0 Depression Screening Interpretation: Positive Depression Screening Follow-up: Existing condition and Follow-up Visit Requested Depression Screening Done: Yes 39489 - PHQ-9 Billing: Yes Source: Developed by Drs. Jose Armando Julio, Aime Meadows and colleagues, with an educational smooth from [employer]. Thrive Questionnaire Date Thrive assessed: 11/23/23 AUDIT C Alcohol Use Questionnaire (AUDIT-C) 3. How often do you have six or more drinks on one occasion?: Never Total Score: 0 MODE-7 AMB Questionnaire MODE-7 Date MODE - 7 assessed: 11/23/23 Source: Developed by Drs. Jose Armando Julio, Aime Meadows and colleagues, with an educational smooth from [employer]. Physical exam (Primary Care) Vital Signs: Last Vital Signs Pulse 77 04/19/24 10:39 BP 130/76 04/19/24 10:39 Pulse Ox 98 04/19/24 10:39 Oxygen Delivery Method Room Air 04/19/24 10:39 BMI result Body Mass Index 33.1 Tobacco/Smoking Status: Tobacco use Status Tobacco use date assessed 11/23/23 04/19/24 10:47 Patient Tobacco Use Status Never used Tobacco 04/19/24 10:47 Tobacco use type Cigarette 04/19/24 10:47 e-Cigarette/Vaping Use Never Used 04/19/24 10:47 PHQ-9: PHQ-9 Score PHQ-9: Total score 0 04/19/24 10:47 Depression Screening Interpretation: Positive Depression Screening Follow-up: Existing condition and Follow-up Visit Requested Thrive Assessment: Date of Thrive Assessment Date Thrive assessed 11/23/23 04/19/24 10:47 Const General: alert; No acute distress Eyes Conjunctivae: conjunctivae normal Resp Auscultation: clear to auscultation bilaterally Cardio Rate: regular rate Rhythm: regular rhythm GI Inspection: Yes normal to inspection Extrem General: Yes normal to inspection and No edema Coding Level of Care Code Est Pt Level 4 (44353) Diagnoses Essential hypertension I10 Dyslipidemia E78.5 Obesity (BMI 30-39.9) E66.9 Hepatic steatosis K76.0 Renal mass, right N28.89 Assessment & Plan Assessment & Plan (1) Essential hypertension: Code(s): I10 - Essential (primary) hypertension Category: Medical Plan: Continue with blood pressure medication. Decrease salt intake and exercise presently on lisinopril 20 mg once a day and hydrochlorothiazide 50 mg once a day (2) Dyslipidemia: Code(s): E78.5 - Hyperlipidemia, unspecified Category: Medical Plan: Avoid fried foods, chicken skin, eggs, butter margarine, pastries and meat. Be it pork or beef they have a lot of cholesterol LDL goal of less than 130 and triglyceride of less than 150 (3) Obesity (BMI 30-39.9): Code(s): E66.9 - Obesity, unspecified Category: Medical Plan: Diet and exercise (4) Hepatic steatosis: Code(s): K76.0 - Fatty (change of) liver, not elsewhere classified Category: Medical Plan: discussed about eating healthy, low cholesterol diet and exercise (5) Renal mass, right: Code(s): N28.89 - Other specified disorders of kidney and ureter Category: Medical Plan: this is followed up by Urology
== END 2024-04-19 11:29 | disposition home or self-care (01) ==
PROVIDERS: PCP Internal Medicine; Visit Provider Internal Medicine
DX: I10 Essential (primary) hypertension (principal); Z68.33 Body mass index [BMI] 33.0-33.9, adult; E66.9 Obesity, unspecified; E78.5 Hyperlipidemia, unspecified; K76.0 Fatty (change of) liver, not elsewhere classified; N28.89 Other specified disorders of kidney and ureter

== ENCOUNTER → 2024-04-19 10:14 | Outpatient (BNVA) | payer OTHER, SELFPAY | PROVIDERS: PCP Internal Medicine; Visit Provider Internal Medicine | DX: I10 Essential (primary) hypertension (principal); E78.5 Hyperlipidemia, unspecified; E66.9 Obesity, unspecified; K76.0 Fatty (change of) liver, not elsewhere classified; N28.89 Other specified disorders of kidney and ureter | CPT/HCPCS: 96127; 99212 ==

== ENCOUNTER 2024-07-18 09:10 | Outpatient (REF) | payer MEDICARE, SELFPAY | END 2024-07-18 09:11 | disposition home or self-care (01) | LOC: HO.MAMMO 09:10 | PROVIDERS: PCP Internal Medicine; Visit Provider Internal Medicine | DX: Z12.31 Encounter for screening mammogram for malignant neoplasm of breast (principal) | CPT/HCPCS: 77063; 77067 ==

== ENCOUNTER → 2024-07-18 09:45 | Outpatient (BNV) | payer MEDICARE, SELFPAY | PROVIDERS: PCP Internal Medicine; Visit Provider Internal Medicine | DX: Z12.31 Encounter for screening mammogram for malignant neoplasm of breast (principal) | CPT/HCPCS: 77063; 77067 ==

== ENCOUNTER 2024-09-05 10:40 | Outpatient (AMB) | payer MEDICARE, SELFPAY ==
--- NOTE | 2024-09-05 11:16 | A.OFFPC_ITS ---
Vital Signs 09/05/24 11:18 Height 5 ft 3 in Weight 185 lb BMI 32.8 BP 132/80 Blood Pressure Location Lt brachial Position Sitting Intake Visit Reasons: Follow Up Incident Coordinator Required: Yes Incident Coordinator Language: Spinning Supervisor Name: Kelli Huffman MD Information Interpreted: non-clinical & clinical Accompanied by: Self / Same As Patient Allergies aspirin [ASPIRIN] Allergy (Intermediate, Verified 09/05/24 11:27) GI UPSET, stomach upset Medication List - Last Reconciled 09/05/24 by Kelli Huffman MD acetaminophen ER 1,300 mg (2 x 650 mg) PO Q8H PRN 30 days cholecalciferol (vitamin D3) 25 mcg PO DAILY 90 days fluticasone propionate 50 mcg/actuation 1 spray intranasal DAILY hydrochlorothiazide 50 mg PO DAILY lisinopril 20 mg PO DAILY 90 days psyllium husk (Metamucil) 1 tbsp PO DAILY Tobacco use date assessed: 09/05/24 Fall risk assessment: No Falls in past year Last assessed Fall Risk: 09/05/24 Dental Screening Dental Screen Date: 09/05/24 Did you have a dental visit in the last 12 months?: Yes Did you have a dental problem in the last 6 months where you did not have access to dental care?: No Was dental information given to patient?: Patient has dentist HPI HPI Comments History of Present Illness Details The patient is a 73-year-old female presenting with muscle spasms. These spasms are described as severe, affecting her neck and shoulder area. She attempted to manage the pain with an anaprox pill, which provided relief. The patient also reports that she manages periodic constipation with psyllium. She has an allergy to aspirin, causing stomach pain. Her hypertension is controlled, with a recent reading of 132/80 mmHg. On vitamin-D supplements for her low vitamin-D. [facility] Medical History (Updated 09/05/24 @ 13:12 by Kelli Huffman MD) Class 1 obesity with body mass index (BMI) of 34.0 to 34.9 in adult Renal neoplasm Endometrium, polyp LGSIL (low grade squamous intraepithelial dysplasia) Endometrial hyperplasia Hypovitaminosis D Dyslipidemia Palpitations Essential hypertension Surgical History History of esophagogastroduodenoscopy (EGD) History of colonoscopy History of cholecystectomy History of hysteroscopy Family History Father Leukemia Mother Brain tumor Sister Diabetes Heart problem Sister Renal failure Brother Stroke Brother Hypertension Family/Other FH: mental illness Maternal Uncle Paranoia Family/Other Breast cancer Social History Household Members: Spouse Household Members Other:: daughter Housing: House Alcohol intake: never Patient Tobacco Use Status: Never used Tobacco Tobacco use type: Cigarette e-Cigarette/Vaping Use: Never Used Second Hand Smoke Exposure: No service: No Current occupational status: retired Sexual orientation: Straight/Heterosexual Gender identity: Female Cognitive needs: No Hearing needs: No Vision needs: Yes Female Reproductive History Menstrual Age of Menarche: 16 Questionnaire PHQ-9 Over the last 2 weeks, how often have you been bothered by any of the following problems? 1. Little interest or pleasure in doing things: not at all 2. Feeling down, depressed, or hopeless: not at all 3. Trouble falling or staying asleep, or sleeping too much: not at all 4. Feeling tired or having little energy: not at all 5. Poor appetite or overeating: not at all 6. Feeling bad about yourself - or that you are a failure or have let yourself or your family down: not at all 7. Trouble concentrating on things, such as reading the newspaper or watching television: not at all 8. Moving or speaking so slowly that other people could have noticed. Or the opposite - being so fidgety or restless that you have been moving around a lot more than usual: not at all 9. Thoughts that you would be better off or of hurting yourself in some way: not at all Total score: 0 Depression Screening Interpretation: Negative Depression Screening Done: Yes 10462 - PHQ-9 Billing: Yes Source: Developed by Drs. Jose Armando Julio, Miriam Painting, Aime Rojo and colleagues, with an educational smooth from [employer]. Thrive Questionnaire Date Thrive assessed: 09/05/24 I am a: Patient What is your living situation today?: I have a steady place to live Within the past 12 months, did the food you bought not last and you didn't have the money to get more?: Never true Within the past 12 months, did you worry whether your food would run out before you got money to buy more?: Never true Do you have trouble paying for medicines?: No Do you have trouble getting transportation to medical appointments?: No Do you have trouble paying your heating and electricity bill?: No Do you have trouble taking care of your child, family member or friend?: No Do you have trouble with day-to-day activities such as bathing, preparing meals, shopping, managing finances, etc.?: No Are you currently unemployed and looking for a job?: No Are you interested in more education?: No Please select the resources that you would like help with: None Currently or been in a relationship where the following occur: No concerns reported THRIVE Score: 0 AUDIT C Alcohol Use Questionnaire (AUDIT-C) 1. How often do you have a drink containing alcohol?: Never Total Score: 0 Score Reviewed/Action Taken: No MODE-7 AMB Questionnaire MODE-7 Date MODE - 7 assessed: 09/05/24 Feeling nervous, anxious, or on edge: 1 = Several days Not being able to stop or control worryin = Not at all Worrying too much about different things: 1 = Several days Trouble relaxin = Not at all Being so restless that it is hard to sit still: 0 = Not at all Becoming easily annoyed or irritable: 0 = Not at all Feeling afraid as if something awful might happen: 1 = Several days Total MODE-7 score (0-4 normal; 5-9 mild; 10-14 moderate; 15-21 severe): 3 Source: Developed by Drs. Jose Armando Julio, Miriam Painting, Aime Rojo and colleagues, with an educational smooth from [employer]. MODE-7 Assessment Billing MODE-7 Assessment Tool: MODE-7 Assessment 97021 Review of Systems Const All systems reviewed & are unremarkable except as noted in HPI and below Card Denies chest pain at rest, Denies chest pain with activity, Denies edema, Denies irregular heart rhythm, Denies claudication, Denies dyspnea, Denies dyspnea on exertion, Denies orthopnea, Denies paroxysmal nocturnal dyspnea and Denies slow heart rate Resp Denies cough, Denies dyspnea and Denies dyspnea on exertion Musc Denies atrophy, Denies deformity and Denies limited range of motion Skin/Breast Denies bleeding lesions, Denies changing lesions and Denies rash Physical exam (Primary Care) Vital Signs: Last Vital Signs BP 132/80 09/05/24 11:18 BMI result Body Mass Index 32.8 BMI Assessment/Plan discussion: High BMI High, discussed plan: lifestyle, weight reduction, dietary and physical activity Tobacco/Smoking Status: Tobacco use Status Tobacco use date assessed 09/05/24 09/05/24 11:23 Patient Tobacco Use Status Never used Tobacco 09/05/24 11:23 Tobacco use type Cigarette 09/05/24 11:23 e-Cigarette/Vaping Use Never Used 09/05/24 11:23 PHQ-9: PHQ-9 Score PHQ-9: Total score 0 09/05/24 11:29 Depression Screening Interpretation: Negative Thrive Assessment: Date of Thrive Assessment Date Thrive assessed 09/05/24 09/05/24 11:23 Currently or been in a relationship where the following occur: No concerns reported Resp Effort & Inspection: normal respiratory effort Auscultation: clear to auscultation bilaterally Cardio Jugular venous distension: no JVD Rate: regular rate Rhythm: regular rhythm Heart sounds: S1 normal heart sound present and S2 normal heart sound present Extrem General: Yes full ROM Coding Level of Care Code Est Pt Level 4 (36382) Complex EM visit Add On G2211 Diagnoses Muscle spasm M62.838 Essential hypertension I10 Hypovitaminosis D E55.9 Chronic idiopathic constipation K59.04 Additional Codes MODE-7 Assessment Billing - MODE-7 Assessment Tool: MODE-7 Assessment 36887 ([id number]) PHQ-9 - 82578 - PHQ-9 Billing: Yes ([id number]) Time Spent (min) 22 Assessment & Plan Assessment & Plan (1) Muscle spasm: Code(s): M62.838 - Other muscle spasm Category: Medical (2) Essential hypertension: Code(s): I10 - Essential (primary) hypertension Category: Medical (3) Hypovitaminosis D: Code(s): E55.9 - Vitamin D deficiency, unspecified Category: Medical (4) Chronic idiopathic constipation: Code(s): K59.04 - Chronic idiopathic constipation Category: Medical Plan I will prescribe a muscle relaxant for nighttime use to mitigate muscle spasms. I plan to review her magnesium levels, as deficiencies may relate to her symptoms. I will continue monitoring her hypertension, which is currently well- managed. The patient's dietary habits should be observed, and anxiety-relief methods may be beneficial. Psyllium will remain her primary aid for constipation , taken as needed. Lastly, I will arrange follow-up lab work, as no recent evaluations have been noted. Patient was informed and verbally consented to the use of an ambient scribe for clinic note documentation during this visit. I explained to the patient that a muscle relaxant would be beneficial for her nighttime spasms, highlighting its sedative properties. Concerns of low magnesium levels were discussed, prompting a check of these levels in her bloodwork. We reviewed her current medications and the importance of managing her anxiety and dietary habits was emphasized to possibly alleviate symptoms. The patient understood and consented to the proposed management plan, including continuing psyllium for constipation and monitoring her blood pressure. I also highlighted the importance of obtaining updated lab results for comprehensive assessment. Orders: Orders Lipid Panel Today E78.5 - Hyperlipidemia, unspecified Magnesium Today M62.838 - Other muscle spasm Vitamin D 25-OH Total Today E55.9 - Vitamin D deficiency, unspecified Comprehensive [place]. Panel Fast Today E66.9 - Obesity, unspecified, Z68.32 - Body mass index [BMI] 32.0-32.9, adult Medications: New cyclobenzaprine 5 mg PO BEDTIME 30 days PRN 30 tabs 0RF muscle spasm Changed From acetaminophen ER ([employer]ap Arthritis Pain) 1,300 mg (2 x 650 mg) PO Q8H 30 days PRN 180 tabs 1RF fever or pain M16.12 - Unilateral primary osteoarthritis, left hip To acetaminophen ER 1,300 mg (2 x 650 mg) PO Q8H 30 days PRN 180 tabs 1RF fever or pain M16.12 - Unilateral primary osteoarthritis, left hip Patient Instructions: - Take the prescribed muscle relaxant at night. - Use psyllium as needed for constipation relief. - Avoid aspirin due to known allergy; seek alternatives if needed. - Schedule follow-up lab work as it is overdue. - Monitor dietary habits and practice stress-relief techniques. - Report any new or worsening symptoms promptly.
[2024-09-05 11:18] VITALS: BP 132/80; BMI 32.8
== END 2024-09-05 11:37 | disposition home or self-care (01) ==
LOC: HO.HMCH 10:41
PROVIDERS: PCP Internal Medicine; Visit Provider Internal Medicine
DX: M62.838 Other muscle spasm (principal); I10 Essential (primary) hypertension; E55.9 Vitamin D deficiency, unspecified; K59.04 Chronic idiopathic constipation

== ENCOUNTER → 2024-09-05 10:40 | Outpatient (BNVA) | payer MEDICARE, SELFPAY | PROVIDERS: PCP Internal Medicine; Visit Provider Internal Medicine | DX: M62.838 Other muscle spasm (principal); I10 Essential (primary) hypertension; E55.9 Vitamin D deficiency, unspecified; K59.04 Chronic idiopathic constipation | CPT/HCPCS: 96127; 99212 ==

== ENCOUNTER 2024-11-20 15:07 | Outpatient (AMB) | payer MEDICARE, SELFPAY ==
[2024-11-20 15:11] VITALS: BP 130/80; PULSE 77; TEMP 36.6; O2SAT 99; BMI 32.8
--- NOTE | 2024-11-20 15:11 | AM.OFFWIN_ITS ---
Intake Vital Signs 11/20/24 15:11 Height 5 ft 3 in Weight 185 lb BMI 32.8 BP 130/80 Blood Pressure Location Rt brachial Position Sitting Pulse 77 Pulse Source Pulse Oximeter Temp 97.8 F Temp Source Oral Pulse Oximetry (%) 99 Oxygen Delivery Method Room Air Intake Visit Reasons: EP something stuck in rt foot? Patient Tobacco Use Status: Never used Tobacco Allergies aspirin [ASPIRIN] Allergy (Intermediate, Verified 11/20/24 15:11) GI UPSET, stomach upset Do you need a note to return to daycare/school/sports/work: No HPI HPI Comments History of Present Illness Details History of Present Illness - The patient is a 73-year-old female pr esenting with acute pain and swelling in the right foot. - Symptoms commenced today without any k nown trauma or specific triggering event. - The patient reports no recent changes in footwear or physical activities that could explain the condition. - She has attempted treatment with ibupr ofen and ice, both of which were ineffective. - Examination revealed more swelling cathleen n usual in the affected foot, with tenderness noted. - The patient denies any personal histor y of gout or arthritis. - There is no history of injury or forei gn object lodged in the foot. - The patient reports a cyst in the kidn ey but denies chronic kidney disease. Physical Exam General: Cooperative, healthy appearing, comfortable, no acute distress and well developed Orientation: Patient oriented x3 Limitations: No limitations Head: Normal to inspection Ears: Hearing grossly normal bilaterally Nose: Normal External nose present Face and sinus: Normal facial exam Eyes: Appearance normal, both eyes and all related structures Neck: Normal visual inspection and Yes full ROM Respiratory: Normal respiratory effort and able to speak in complete sentences. Skin: No rashes or lesions noted Neuro: Patient oriented x3, slightly limping gait Extremities: Right midfoot with edema and slight TTP, no erythema, 1st toe with slight edema and TTP, no erythem, all toes with FULL ROM and NVI, no TTP in remainder of foot. [facility] Medical History Class 1 obesity with body mass index (BMI) of 34.0 to 34.9 in adult Renal neoplasm Endometrium, polyp LGSIL (low grade squamous intraepithelial dysplasia) Endometrial hyperplasia Hypovitaminosis D Dyslipidemia Palpitations Essential hypertension Surgical History History of esophagogastroduodenoscopy (EGD) History of colonoscopy History of cholecystectomy History of hysteroscopy Family History Father Leukemia Mother Brain tumor Sister Diabetes Heart problem Sister Renal failure Brother Stroke Brother Hypertension Family/Other FH: mental illness Maternal Uncle Paranoia Family/Other Breast cancer Social History Household Members: Spouse Household Members Other:: daughter Housing: House Alcohol intake: never Patient Tobacco Use Status: Never used Tobacco Tobacco use type: Cigarette e-Cigarette/Vaping Use: Never Used Second Hand Smoke Exposure: No service: No Current occupational status: retired Sexual orientation: Straight/Heterosexual Gender identity: Female Cognitive needs: No Hearing needs: No Vision needs: Yes Female Reproductive History Menstrual Age of Menarche: 16 Review of Systems Const All systems reviewed & are unremarkable except as noted in HPI and below Physical Exam Vital Signs: Last Vital Signs Temp 97.8 F 11/20/24 15:11 Pulse 77 11/20/24 15:11 BP 130/80 11/20/24 15:11 Pulse Ox 99 11/20/24 15:11 Oxygen Delivery Method Room Air 11/20/24 15:11 BMI result Body Mass Index 32.8 Assessment & Plan Assessment & Plan (1) Right foot pain: Code(s): M79.671 - Pain in right foot Plan: I will proceed with obtaining an X-ray of the right foot to evaluate for any fractures, foreign bodies, or effusion that could be contributing to the patient's acute symptoms. The patient's attempt at self-management with ibuprofen and ice was unsuccessful, indicating the need for further diagnostic evaluation. Her renal function is stable, which supports the safety of continued NSAID use if deemed necessary after the X-ray results. There is no indication of gout or arthritis based on the patient's history and current presentation. Further management will depend on the findings of the X-ray and may include additional tests or interventions if necessary. X-ray interpretation no acute fracture or dislocation of the right foot, looks like arthritis, we will treat with diclofenac. Recommended patient take it around the clock for 3 days and then as needed. Advised not to take any other NSAIDs during this time. If no improvement in her pain, she should return to the walk-in clinic. Patient was informed and verbally consented to the use of an ambient scribe for clinic note documentation during this visit. Orders: Orders XR foot RT min 3V Today M79.671 - Pain in right foot Medications: New diclofenac sodium 50 mg PO Q12H PRN 20 tabs 0RF pain Coding Level of Care Code Est Pt Level 4 (19550) Diagnoses Right foot pain M79.671
== END 2024-11-20 16:08 | disposition home or self-care (01) ==
PROVIDERS: PCP Internal Medicine; Visit Provider Physician Assistant
DX: M79.671 Pain in right foot (principal)

== ENCOUNTER 2024-11-20 15:07 | Outpatient (REF) | payer MEDICARE, SELFPAY ==
--- NOTE | ~2024-11-20 | XR_ITS ---
EXAMINATION: XR FOOT, RIGHT CLINICAL INFORMATION: M79.671 - Pain in right foot COMPARISON: 04/30/2018. TECHNIQUE: AP, lateral, and oblique views of the right foot. FINDINGS: No fracture, dislocation, or suspicious bone lesion. There is mild to moderate arthritis at the first MTP joint. Suggestion of very subtle erosions present. There is otherwise preserved joint spaces. Normal plantar arch. The midfoot and hindfoot appear grossly normal. There is a plantar and dorsal calcaneal spur. No soft tissue abnormalities. XR/XR foot RT min 3V IMPRESSION: 1. No acute bony abnormalities of the right foot. 2. 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 Electronically signed by: Mendez Frias MD 11/20/2024 03:52 PM EDT
== END 2024-11-20 15:08 | disposition home or self-care (01) ==
LOC: HO.HMGCX 15:07
PROVIDERS: PCP Internal Medicine; Visit Provider Physician Assistant
DX: M79.671 Pain in right foot (principal)
CPT/HCPCS: 73630; 99212

== ENCOUNTER → 2024-11-20 15:33 | Outpatient (BNV) | payer MEDICARE, SELFPAY | PROVIDERS: PCP Internal Medicine; Visit Provider Radiology Diagnostic Radiology | DX: M19.071 Primary osteoarthritis, right ankle and foot (principal) | CPT/HCPCS: 73630 ==

== ENCOUNTER 2024-11-27 16:33 | Outpatient (AMB) | payer MEDICARE, SELFPAY ==
[2024-11-27 17:09] VITALS: BP 158/80; BMI 32.2
--- NOTE | 2024-11-27 17:09 | MHC.PC.OV ---
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 Accompanied by: Self / Same As Patient Allergies aspirin [ASPIRIN] Allergy (Intermediate, Verified 11/27/24 17:21) GI UPSET, stomach upset Medication List - Last Reconciled 11/27/24 by Kelli Huffman MD acetaminophen ER 1,300 mg (2 x 650 mg) PO Q8H PRN 30 days cholecalciferol (vitamin D3) 25 mcg PO DAILY 90 days cyclobenzaprine 5 mg PO BEDTIME PRN 30 days diclofenac sodium 50 mg PO Q12H PRN fluticasone propionate 50 mcg/actuation 1 spray intranasal DAILY hydrochlorothiazide 50 mg PO DAILY lisinopril 20 mg PO DAILY 90 days psyllium husk (Metamucil) 1 tbsp PO DAILY Tobacco use date assessed: 09/05/24 Dental Screening Dental Screen Date: 09/05/24 HPI HPI Comments History of Present Illness Details The patient is a 73-year-old female presenting with right podiatric pain with swelling. Approximately two weeks ago, she experienced the onset of severe pain and swelling in the right big toe. She describes the toe as tender and red, with swelling so pronounced it impedes wearing sandals comfortably. The discomfort tends to be most significant early in the morning. She denies recent trauma or noticeable injuries to the foot. The patient's brother and uncle have previously been diagnosed with gout, leading to suspicion of genetic predisposition. Recently, she has limited her intake of foods high in purines, including red meat, as part of her dietary interventions. She notes some alleviation of symptoms but continues to report persistent tenderness and noticeable swelling. She has hypertension in which will be recheck in 3 weeks by nurse navigator due to elevated blood pressure today. She also has low vitamin-D will supplements. [facility] Medical History (Updated 11/27/24 @ 17:27 by Kelli Huffman MD) Class 1 obesity with body mass index (BMI) of 34.0 to 34.9 in adult Renal neoplasm Endometrium, polyp LGSIL (low grade squamous intraepithelial dysplasia) Endometrial hyperplasia Hypovitaminosis D Dyslipidemia Palpitations Essential hypertension Surgical History History of esophagogastroduodenoscopy (EGD) History of colonoscopy History of cholecystectomy History of hysteroscopy Family History Father Leukemia Mother Brain tumor Sister Diabetes Heart problem Sister Renal failure Brother Stroke Brother Hypertension Family/Other FH: mental illness Maternal Uncle Paranoia Family/Other Breast cancer Social History Household Members: Spouse Household Members Other:: daughter Housing: House Alcohol intake: never Patient Tobacco Use Status: Never used Tobacco e-Cigarette/Vaping Use: Never Used Second Hand Smoke Exposure: No service: No Current occupational status: retired Sexual orientation: Straight/Heterosexual Gender identity: Female Cognitive needs: No Hearing needs: No Vision needs: Yes Female Reproductive History Menstrual Age of Menarche: 16 Questionnaire PHQ-9 Over the last 2 weeks, how often have you been bothered by any of the following problems? 1. Little interest or pleasure in doing things: not at all 2. Feeling down, depressed, or hopeless: not at all 3. Trouble falling or staying asleep, or sleeping too much: not at all 4. Feeling tired or having little energy: not at all 5. Poor appetite or overeating: not at all 6. Feeling bad about yourself - or that you are a failure or have let yourself or your family down: not at all 7. Trouble concentrating on things, such as reading the newspaper or watching television: not at all 8. Moving or speaking so slowly that other people could have noticed. Or the opposite - being so fidgety or restless that you have been moving around a lot more than usual: not at all 9. Thoughts that you would be better off or of hurting yourself in some way: not at all Total score: 0 Depression Screening Interpretation: Negative Depression Screening Done: Yes 75494 - PHQ-9 Billing: Yes Source: Developed by Drs. Jose Armando Julio, Miriam Painting, Aime Rojo and colleagues, with an educational smooth from [employer]. Thrive Questionnaire Date Thrive assessed: 09/05/24 I am a: Patient What is your living situation today?: I have a steady place to live Within the past 12 months, did the food you bought not last and you didn't have the money to get more?: Sometimes True Within the past 12 months, did you worry whether your food would run out before you got money to buy more?: Never true Do you have trouble paying for medicines?: No Do you have trouble getting transportation to medical appointments?: No Do you have trouble paying your heating and electricity bill?: No Do you have trouble taking care of your child, family member or friend?: No Do you have trouble with day-to-day activities such as bathing, preparing meals, shopping, managing finances, etc.?: No Are you currently unemployed and looking for a job?: No Are you interested in more education?: No Please select the resources that you would like help with: None Currently or been in a relationship where the following occur: No concerns reported THRIVE Score: 1 AUDIT C Alcohol Use Questionnaire (AUDIT-C) 1. How often do you have a drink containing alcohol?: Never Total Score: 0 MODE-7 AMB Questionnaire MODE-7 Date MODE - 7 assessed: 09/05/24 Feeling nervous, anxious, or on edge: 0 = Not at all Not being able to stop or control worryin = Not at all Worrying too much about different things: 0 = Not at all Trouble relaxin = Not at all Being so restless that it is hard to sit still: 0 = Not at all Becoming easily annoyed or irritable: 0 = Not at all Feeling afraid as if something awful might happen: 0 = Not at all Total MODE-7 score (0-4 normal; 5-9 mild; 10-14 moderate; 15-21 severe): 0 Source: Developed by Drs. Jose Armando Julio, Miriam [employer], Aime Rojo and colleagues, with an educational smooth from [employer]. MODE-7 Assessment Billing MODE-7 Assessment Tool: MODE-7 Assessment 03750 Review of Systems Const All systems reviewed & are unremarkable except as noted in HPI and below Eyes Reports no additional complaints, Denies change in vision and Denies other visual disturbances Card Denies chest pain at rest, Denies chest pain with activity, Denies edema, Denies irregular heart rhythm, Denies claudication, Denies dyspnea, Denies dyspnea on exertion, Denies orthopnea, Denies paroxysmal nocturnal dyspnea and Denies slow heart rate Resp Denies cough, Denies dyspnea and Denies dyspnea on exertion GI Denies abdominal pain, Denies change in bowel habits, Denies excessive flatus, Denies nausea and Denies vomiting Musc Reports arthralgias Physical exam (Primary Care) Vital Signs: Last Vital Signs BP 158/80 H 11/27/24 17:09 BMI result Body Mass Index 32.2 Tobacco/Smoking Status: Tobacco use Status Tobacco use date assessed 09/05/24 11/27/24 17:16 Patient Tobacco Use Status Never used Tobacco 11/27/24 17:16 Tobacco use type 11/27/24 17:16 e-Cigarette/Vaping Use Never Used 11/27/24 17:16 PHQ-9: PHQ-9 Score PHQ-9: Total score 0 11/27/24 17:24 Depression Screening Interpretation: Negative Thrive Assessment: Date of Thrive Assessment Date Thrive assessed 09/05/24 11/27/24 17:16 Currently or been in a relationship where the following occur: No concerns reported Resp Effort & Inspection: normal respiratory effort Auscultation: clear to auscultation bilaterally Cardio Jugular venous distension: no JVD Rate: regular rate Rhythm: regular rhythm Heart sounds: S1 normal heart sound present and S2 normal heart sound present Extrem General: Yes full ROM Coding Level of Care Code Est Pt Level 4 (10073) Complex EM visit Add On G2211 Diagnoses Gout M10.9 Essential hypertension I10 Right foot pain M79.671 Hypovitaminosis D E55.9 Additional Codes MODE-7 Assessment Billing - MODE-7 Assessment Tool: MODE-7 Assessment 35748 ([id number]) PHQ-9 - 19178 - PHQ-9 Billing: Yes ([id number]) Time Spent (min) 23 Assessment & Plan Assessment & Plan (1) Gout: Code(s): M10.9 - Gout, unspecified Category: Medical (2) Essential hypertension: Code(s): I10 - Essential (primary) hypertension Category: Medical (3) Right foot pain: Code(s): M79.671 - Pain in right foot Category: Medical (4) Hypovitaminosis D: Code(s): E55.9 - Vitamin D deficiency, unspecified Category: Medical Plan I will conduct testing for serum uric acid levels to investigate a presumed diagnosis of gout for the patient's right big toe pain and swelling. Prednisone for 8 days has been prescribed to address inflammation. Due to reported gastrointestinal upset with aspirin, alternative medications indomethacin and colchicine were considered, but not chosen due to side effects. Kidney functions will be monitored as part of the overall management plan. The patient's current antihypertensive regimen, including hydrochlorothiazide and lisinopril, remains unchanged, with scheduled reevaluation of blood pressure in three weeks. Patient was informed and verbally consented to the use of an ambient scribe for clinic note documentation during this visit. During the consultation, I discussed the likelihood of gout as responsible for the right toe swelling, considering family history and symptom presentation. The management includes initiating prednisone for inflammation and testing serum uric acid levels for diagnosis confirmation. I explained risks related to continued anti-inflammatory medication use, particularly aspirin, advising on potential for gastrointestinal upset. Alternatives such as indomethacin and colchicine were discussed, but the latter's risk for diarrhea was stressed. Monitoring kidney function was agreed upon, considering potential effects of gout medications. The patient's hypertension regimen will continue as the current strategy, with a follow-up plan to reassess blood pressure in three weeks. Detailed instructions were provided to ensure understanding and adherence, with emphasis on recognizing exacerbation signs and the importance of dietary adjustments to reduce uric acid levels. Orders: Orders Comprehensive Met. Panel Today M10.9 - Gout, unspecified Uric Acid Today M10.9 - Gout, unspecified Medications: New prednisone Take 4 tabs for 2 days, then 3 tabs for 2 days, then 2 tabs for 2 days, then 1 tab for 2 days 10 mg PO DIRECTED 20 tabs 0RF 8 days Discontinued cyclobenzaprine Discontinued Reason: Patient Completed Course 5 mg PO BEDTIME 30 days PRN 30 tabs 0RF muscle spasm Patient Instructions: - Take prescribed prednisone for 8 days to reduce inflammation. - Avoid red meat and foods high in purines. - Monitor for signs of worsening pain or swelling. - Ensure adherence to antihypertensive medications. - Schedule a follow-up in three weeks to reassess blood pressure. - Contact the office sooner if swelling or pain worsens, or if there are concerns with the medication.
== END 2024-11-27 17:31 | disposition home or self-care (01) ==
LOC: HO.HMCH 16:34
PROVIDERS: PCP Internal Medicine; Visit Provider Internal Medicine
DX: M10.9 Gout, unspecified (principal); I10 Essential (primary) hypertension; M79.671 Pain in right foot; E55.9 Vitamin D deficiency, unspecified

== ENCOUNTER → 2024-11-27 16:33 | Outpatient (BNVA) | payer MEDICARE, SELFPAY | PROVIDERS: PCP Internal Medicine; Visit Provider Internal Medicine | DX: I10 Essential (primary) hypertension (principal); E55.9 Vitamin D deficiency, unspecified; M10.9 Gout, unspecified | CPT/HCPCS: 96127; 99212 ==

== ENCOUNTER 2024-11-28 13:31 | Outpatient (REF) | payer MEDICARE, SELFPAY ==
[2024-11-28 15:07] LABS: Alanine Aminotransferase 23 U/L (0-31); Albumin Level 4.9 g/dL (3.5-5.0); Alkaline Phosphatase 56 U/L (39-117); Anion Gap 14 (12-20); Aspartate Amino Transferase 25 U/L (5-31); Bilirubin Total 0.4 mg/dL (0.0-1.0); Blood Urea Nitrogen 26 mg/dL (9-16); Calcium 10.5 mg/dL (8.4-10.2); Carbon Dioxide 31 mmol/L (22-29); Chloride 99 mmol/L (96-108); Estimated Glomerular Filt Rate 51; Glucose Random 134 mg/dL (60-115); Potassium 3.6 mmol/L (3.3-5.1); Sodium 140 mmol/L (135-145); Total Protein 8.2 g/dL (6.5-8.0); Uric Acid 8.3 mg/dL (2.4-5.7)
[2024-11-28 15:09] LABS: Vitamin D 25-OH Total 44.7 ng/mL (>30)
== END 2024-11-28 13:32 | disposition home or self-care (01) ==
LOC: HO.LAB 13:31
PROVIDERS: PCP Internal Medicine; Visit Provider Internal Medicine
DX: M62.838 Other muscle spasm (principal); E55.9 Vitamin D deficiency, unspecified; M10.9 Gout, unspecified
CPT/HCPCS: 36415; 80053; 82306; 83735; 84550

== ENCOUNTER 2024-12-13 11:29 | Outpatient (REF) | payer MEDICARE, SELFPAY ==
[2024-12-13 13:01] LABS: Parathyroid Hormone Intact 101.6 pg/mL (8.7-77.1)
[2024-12-13 13:17] LABS: Vitamin D 25-OH Total 34.5 ng/mL (>30)
[2024-12-16 14:24] LABS: Calcium, Ionized 5.1 mg/dL (4.7-5.5)
== END 2024-12-13 11:30 | disposition home or self-care (01) ==
LOC: HO.LAB 11:29
PROVIDERS: PCP Internal Medicine; Visit Provider Internal Medicine
DX: E83.52 Hypercalcemia (principal)
CPT/HCPCS: 36415; 82306; 82330; 83970

== ENCOUNTER 2025-03-07 10:41 | Outpatient (REF) | payer MEDICARE, SELFPAY ==
[2025-03-07 12:20] LABS: Parathyroid Hormone Intact 93.0 pg/mL (8.7-77.1)
[2025-03-07 12:38] LABS: Alanine Aminotransferase 21 U/L (0-31); Albumin Level 4.6 g/dL (3.5-5.0); Alkaline Phosphatase 50 U/L (39-117); Anion Gap 13 (12-20); Aspartate Amino Transferase 32 U/L (5-31); Blood Urea Nitrogen 27 mg/dL (9-16); Calcium 9.6 mg/dL (8.4-10.2); Carbon Dioxide 29 mmol/L (22-29); Chloride 104 mmol/L (96-108); Cholesterol 193 mg/dL (<200); Estimated Glomerular Filt Rate 59; HDL Cholesterol 45 mg/dL (>40); Potassium 3.9 mmol/L (3.3-5.1); Sodium 142 mmol/L (135-145); Total Protein 7.2 g/dL (6.5-8.0); Triglycerides 133 mg/dL (<150); Uric Acid 8.6 mg/dL (2.4-5.7)
[2025-03-10 11:14] LABS: Calcium, Ionized 5.2 mg/dL (4.7-5.5)
== END 2025-03-07 10:42 | disposition home or self-care (01) ==
LOC: HO.LAB 10:41
PROVIDERS: PCP Internal Medicine; Visit Provider Internal Medicine
DX: I10 Essential (primary) hypertension (principal); E78.5 Hyperlipidemia, unspecified; M10.9 Gout, unspecified; E55.9 Vitamin D deficiency, unspecified; E21.3 Hyperparathyroidism, unspecified
CPT/HCPCS: 36415; 80053; 80061; 82306; 82330; 83970; 84100; 84550

== ENCOUNTER 2025-03-12 08:34 | Outpatient (AMB) | payer MEDICARE, SELFPAY ==
[2025-03-12 09:04] VITALS: BP 122/70; PULSE 55; RESP 18; TEMP 36.2; O2SAT 97; BMI 33.4
--- NOTE | 2025-03-12 09:04 | A.OFFPC_ITS ---
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 Accompanied by: Self / Same As Patient Allergies aspirin (ASPIRIN) Allergy (Intermediate, Verified 03/12/25 09:51) GI UPSET, stomach upset Medication List - Last Reconciled 03/12/25 by Kelli Huffman MD acetaminophen ER 1,300 mg (2 x 650 mg) PO Q8H PRN 30 days allopurinol 100 mg PO DAILY 90 days diclofenac sodium 50 mg PO Q12H PRN fluticasone propionate 50 mcg/actuation 1 spray intranasal DAILY hydrochlorothiazide 50 mg PO DAILY lisinopril 20 mg PO DAILY 90 days prednisone 10 mg PO DIRECTED 8 days psyllium husk (Metamucil) 1 tbsp PO DAILY Tobacco use date assessed: 03/12/25 Fall risk assessment: No Falls in past year Last assessed Fall Risk: 03/12/25 Dental Screening Dental Screen Date: 03/12/25 Did you have a dental visit in the last 12 months?: No Did you have a dental problem in the last 6 months where you did not have access to dental care?: No Was dental information given to patient?: No HPI HPI Comments History of Present Illness Details The patient is a 74-year-old female presenting for a physical exam. She has a history of hypertension, managed with lisinopril and hydrochlorothiazide, which has been effective in maintaining her blood pressure within normal limits. She reports an allergy to aspirin, which causes stomach pain. 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 There is a plan to increase the dosage to 300 mg to better manage her uric acid levels. She also has a history of gout, which has not caused recent flare-ups, and oste oarthritis, which was noted on imaging. The patient has hyperparathyroidism with elevated parathyroid hormone levels at 93 pg/mL, despite normal renal function and vitamin D levels. She is scheduled for an endocrinology appointment to evaluate for a possible parathyroid adenoma. Her preventative care includes a colonoscopy in 2022, which revealed hemorrhoids and hyperplastic polyps. She has also had a mammogram and bone density scan, both of which were normal. Her last Pap smear in 2022 showed no HPV detection. [facility] Medical History Class 1 obesity with body mass index (BMI) of 34.0 to 34.9 in adult Renal neoplasm Endometrium, polyp LGSIL (low grade squamous intraepithelial dysplasia) Endometrial hyperplasia Hypovitaminosis D Dyslipidemia Palpitations Essential hypertension Surgical History History of esophagogastroduodenoscopy (EGD) History of colonoscopy History of cholecystectomy History of hysteroscopy Family History Father Leukemia Mother Brain tumor Sister Diabetes Heart problem Sister Renal failure Brother Stroke Brother Hypertension Family/Other FH: mental illness Maternal Uncle Paranoia Family/Other Breast cancer Social History Household Members: Spouse Household Members Other:: daughter Housing: House Alcohol intake: never Patient Tobacco Use Status: Never used Tobacco e-Cigarette/Vaping Use: Never Used Second Hand Smoke Exposure: No service: No Current occupational status: retired Sexual orientation: Straight/Heterosexual Gender identity: Female Cognitive needs: No Hearing needs: No Vision needs: Yes Female Reproductive History Menstrual Age of Menarche: 16 Questionnaire PHQ-9 Over the last 2 weeks, how often have you been bothered by any of the following problems? 1. Little interest or pleasure in doing things: not at all 2. Feeling down, depressed, or hopeless: not at all 3. Trouble falling or staying asleep, or sleeping too much: not at all 4. Feeling tired or having little energy: not at all 5. Poor appetite or overeating: not at all 6. Feeling bad about yourself - or that you are a failure or have let yourself or your family down: not at all 7. Trouble concentrating on things, such as reading the newspaper or watching television: not at all 8. Moving or speaking so slowly that other people could have noticed. Or the opposite - being so fidgety or restless that you have been moving around a lot more than usual: not at all 9. Thoughts that you would be better off or of hurting yourself in some way: not at all Total score: 0 Depression Screening Interpretation: Negative Depression Screening Done: Yes 87988 - PHQ-9 Billing: Yes Source: Developed by Drs. Jose Armando Julio, Miriam Pain[employer], Aime Rojo and colleagues, with an educational smooth from [employer]. Thrive Questionnaire Date Thrive assessed: 09/05/24 I am a: Patient What is your living situation today?: I have a steady place to live Within the past 12 months, did the food you bought not last and you didn't have the money to get more?: Sometimes True Within the past 12 months, did you worry whether your food would run out before you got money to buy more?: Never true Do you have trouble paying for medicines?: No Do you have trouble getting transportation to medical appointments?: No Do you have trouble paying your heating and electricity bill?: No Do you have trouble taking care of your child, family member or friend?: No Do you have trouble with day-to-day activities such as bathing, preparing meals, shopping, managing finances, etc.?: No Are you currently unemployed and looking for a job?: No Are you interested in more education?: No Please select the resources that you would like help with: None Currently or been in a relationship where the following occur: No concerns reported THRIVE Score: 1 AUDIT C Alcohol Use Questionnaire (AUDIT-C) 1. How often do you have a drink containing alcohol?: Never 3. How often do you have six or more drinks on one occasion?: Never Total Score: 0 Score Reviewed/Action Taken: No MODE-7 AMB Questionnaire MODE-7 Date MODE - 7 assessed: 09/05/24 Source: Developed by Drs. Jose Armando Julio, Miriam Pain[employer], Aime Rojo and colleagues, with an educational smooth from [employer]. Review of Systems Const All systems reviewed & are unremarkable except as noted in HPI and below Card Denies chest pain at rest, Denies chest pain with activity, Denies edema, Denies irregular heart rhythm, Denies claudication, Denies dyspnea, Denies dyspnea on exertion, Denies orthopnea, Denies paroxysmal nocturnal dyspnea and Denies slow heart rate Resp Denies cough, Denies dyspnea and Denies dyspnea on exertion Musc Denies atrophy, Denies deformity and Denies limited range of motion Physical exam (Primary Care) Vital Signs: Last Vital Signs Temp 97.1 F 03/12/25 09:04 Pulse 55 03/12/25 09:04 Resp 18 03/12/25 09:04 BP 122/70 03/12/25 09:04 Pulse Ox 97 03/12/25 09:04 Oxygen Delivery Method Room Air 03/12/25 09:04 BMI result Body Mass Index 33.4 BMI Assessment/Plan discussion: High BMI High, discussed plan: lifestyle, weight reduction, dietary and physical activity Tobacco/Smoking Status: Tobacco use Status Tobacco use date assessed 03/12/25 03/12/25 09:16 Patient Tobacco Use Status Never used Tobacco 03/12/25 09:16 Tobacco use type 11/27/24 17:33 e-Cigarette/Vaping Use Never Used 03/12/25 09:16 PHQ-9: PHQ-9 Score PHQ-9: Total score 0 03/12/25 10:28 Depression Screening Interpretation: Negative Thrive Assessment: Date of Thrive Assessment Date Thrive assessed 09/05/24 03/12/25 09:16 Currently or been in a relationship where the following occur: No concerns reported [facility] Head: Yes normal to inspection, Yes normocephalic and Yes atraumatic Ears: external ears normal Eyes General: appearance normal, both eyes and all related structures Eyelids: Yes eyelids normal Conjunctivae: conjunctivae normal Neck Neck: Yes normal visual inspection and Yes supple Resp Effort & Inspection: normal respiratory effort Auscultation: clear to auscultation bilaterally Cardio Jugular venous distension: no JVD Rate: regular rate Rhythm: regular rhythm Heart sounds: S1 normal heart sound present and S2 normal heart sound present GI Inspection: Yes normal to inspection Palpation (GI): Soft to palpation and nontender Auscultation: normal bowel sounds Skin General skin exam: no rashes or lesions noted Neuro General: no focal motor deficits Extrem General: Yes full ROM Psych Appearance: grossly normal Immunizations pneumoc 20-bertha conj-dip cr(PF) 0.5 mL IM syringe Performing Provider: Kelli Huffman MD [facility] Administered by: Abby Perez RN on 03/12/25 10:26 Dose Route Admin Location Dispensed Lot Number Expiration Date NDC Denitrator 0.5 mL IM Left Deltoid 0.5 mL [id number] 03/25/26 3632-5010-77 [employer] [facility] Total Dispensed Waste 0.5 mL 0 % VIS Given Date VIS Provided VIS Publication Date 03/12/25 Single Vaccine 24 Eligibility Eligibility Date Funding Source Not [facility] Eligible 03/12/25 Private Coding Level of Care Code Est Pt Prev Care >65y(96297) Diagnoses Physical exam Z00.00 Hyperparathyroidism E21.3 Additional Codes PHQ-9 - 48144 - PHQ-9 Billing: Yes ([id number]) Time Spent (min) 31 Assessment & Plan Assessment & Plan (1) Physical exam: Code(s): Z00.00 - Encounter for general adult medical examination without abnormal findings Category: Medical (2) Hyperparathyroidism: Code(s): E21.3 - Hyperparathyroidism, unspecified Category: Medical Plan Plan Patient was informed and verbally consented to the use of an ambient scribe for clinic note documentation during this visit. 1. Essential Hypertension The patient's hypertension is currently managed with lisinopril and hydr ochlorothiazide, which have been effective in controlling her blood pressure. There is a plan to adjust her medication regimen by increasing lisinopril to 30 mg and reducing hydrochlorothiazide to 25 mg to optimize blood pressure control. 2. Hyperuricemia The patient has hyperuricemia with a uric acid level of 8.6 mg/dL. The plan includes increasing the allopurinol dosage to 300 mg to better manage her uric acid levels. 3. Hyperparathyroidism The patient has elevated parathyroid hormone levels at 93 pg/mL, suggesting hyperparathyroidism. She is scheduled for an endocrinology consultation to evaluate for a possible parathyroid adenoma. 4. Gout The patient has a history of gout, currently managed with allopurinol, and has not experienced recent flare-ups. 5. Osteoarthritis Osteoarthritis was noted on imaging, and the patient is advised to continue monitoring symptoms and manage pain as needed. 6. Preventative Care The patient is up to date with her preventative care, including a recent colonoscopy, mammogram, bone density scan, and Pap smear. She is advised to follow the recommended schedule for future screenings and vaccinations. Orders: Orders Lipid Panel 4 Months E78.5 - Hyperlipidemia, unspecified Comprehensive [place]. Panel Fast 4 Months I10 - Essential (primary) hypertension Uric Acid 4 Months M10.9 - Gout, unspecified Vitamin D 25-OH Total 4 Months E55.9 - Vitamin D deficiency, unspecified Pneumococcal 20 Immunization Today Z23 - Encounter for immunization Medications: New allopurinol 300 mg PO DAILY 90 tabs 1RF 90 days hydrochlorothiazide 25 mg PO DAILY 90 tabs 0RF 90 days lisinopril 30 mg PO DAILY 90 tabs 1RF 90 days Discontinued hydrochlorothiazide Discontinued Reason: Patient Completed Course 50 mg PO DAILY 90 tabs 3RF allopurinol Discontinued Reason: Patient Completed Course 100 mg PO DAILY 90 days 90 tabs 1RF lisinopril Discontinued Reason: Patient Completed Course 20 mg PO DAILY 90 days 90 tabs 1RF I10 - Essential (primary) hypertension
== END 2025-03-12 10:19 | disposition home or self-care (01) ==
LOC: HO.HMCH 08:35
PROVIDERS: PCP Internal Medicine; Visit Provider Internal Medicine
DX: Z00.00 Encounter for general adult medical examination without abnormal findings (principal); E21.3 Hyperparathyroidism, unspecified; Z23 Encounter for immunization

== ENCOUNTER → 2025-03-12 08:34 | Outpatient (BNVA) | payer MEDICARE, SELFPAY | PROVIDERS: PCP Internal Medicine; Visit Provider Internal Medicine | DX: Z00.00 Encounter for general adult medical examination without abnormal findings (principal); E21.3 Hyperparathyroidism, unspecified; I10 Essential (primary) hypertension; M10.9 Gout, unspecified; E55.9 Vitamin D deficiency, unspecified; E78.5 Hyperlipidemia, unspecified; Z23 Encounter for immunization | CPT/HCPCS: 90471; 90677; 96127; 99397 ==

== ENCOUNTER 2025-03-17 08:51 | Outpatient (AMB) | payer MEDICARE, SELFPAY ==
--- NOTE | 2025-03-17 08:52 | A.OFFVIS_ITS ---
Vital Signs 03/17/25 08:53 Height 5 ft 3 in Weight 191 lb 5.78 oz BMI 33.9 BP 130/74 Blood Pressure Location Lt brachial Position Sitting Pulse 60 Pulse Source Pulse Oximeter Pulse Oximetry (%) 98 Oxygen Delivery Method Room Air Intake Visit Reasons: Hyperparathyroidism, unspecified Intake Note: New patient present today for Hyperparathyroidism, unspecified. Template Storage Clerk Required: Yes Template Storage Clerk Language: Contact Lens Flashing Puncher Services: Template Storage Clerk Present Template Storage Clerk Name: Roxana [email or web address] Information Interpreted: non-clinical & clinical Accompanied by: Self / Same As Patient Allergies aspirin (ASPIRIN) Allergy (Intermediate, Verified 03/17/25 08:57) GI UPSET, stomach upset Medication List - Last Reconciled 03/17/25 by Nicole Souza MD acetaminophen ER 1,300 mg (2 x 650 mg) PO Q8H PRN 30 days allopurinol 300 mg PO DAILY 90 days cetirizine (All Day Allergy (cetirizine)) 10 mg PO DAILY PRN 90 days diclofenac sodium 50 mg PO Q12H PRN fluticasone propionate 50 mcg/actuation 1 spray intranasal DAILY hydrochlorothiazide 25 mg PO DAILY 90 days lisinopril 30 mg PO DAILY 90 days prednisone 10 mg PO DIRECTED 8 days psyllium husk (Metamucil) 1 tbsp PO DAILY HPI Comments Details: 74-year-old female here today for initial evaluation of elevated PTH level. Chart review shows calcium levels have ranged anywhere from 9.3-10 since 2018. Last set of labs follow up in February 2025 showed calcium of 9.6 with albumin of 4.6, corrected calcium would be 9, even on her prior high calcium levels the albumin was high so corrected calcium would be less than 10. Labs from February 2025 showed EGFR 59, vitamin-D mildly low at 28.4, PTH level elevated at 93, normal ionized calcium of 5.2, normal phosphorus. No fractures DEXA scan 07/14/2023 showed normal bone density of the spine with T-score of- 0.5, with a 1.3% increase from 2020, normal bone density of the hip with T-score of-0.8 at the left femoral neck, T-score of 0.6 at the left femur total, with 2.3% decrease from baseline in 2020. Patient denies history of kidney stones Abdominal CT September 2023 did not show any kidney stones. Was done for microscopic hematuria, though she was found to have a renal mass. No family history of calcium problems or kidney stones Vitamin D : just restarted taking D 3 again 03/14/25 , had stopped it previously, doesnt know the dose Calcium : no supplements, milk: three quarters a cup of milk daily, yogurt: none, cheese :2-3 times a week HCTZ 25 mg daily for blood pressure for many years , reduced from 50 mg daily recently. Physical exam General: sitting comfortably in no acute distress HEENT: normocephalic/atraumatic Neck: supple, Cardiac: normal heart sounds Pulm: normal breath sounds B/L, no added breath sounds Abd: not distended, no tenderness Laboratory Tests 04/13/18 08/20/18 08/23/19 11:20 09:40 09:40 Creatinine Estimated GFR Calcium 10.0 10.2 9.6 Ionized Calcium Phosphorus Magnesium Albumin 4.8 4.6 4.4 25-OH Vitamin D Total PTH Intact 03/16/20 11/16/20 05/17/21 09:50 09:55 09:28 Creatinine Estimated GFR Calcium 9.3 9.5 9.7 Ionized Calcium Phosphorus Magnesium Albumin 4.5 4.4 4.4 25-OH Vitamin D Total PTH Intact 11/02/21 03/07/22 07/07/22 10:30 08:31 09:45 Creatinine Estimated GFR Calcium 9.8 9.9 9.9 Ionized Calcium Phosphorus Magnesium Albumin 4.4 4.5 4.5 25-OH Vitamin D Total PTH Intact 11/11/22 03/20/23 11/30/23 09:46 09:32 09:51 Creatinine Estimated GFR Calcium 9.7 10.0 9.9 Ionized Calcium Phosphorus Magnesium Albumin 4.3 4.5 4.4 25-OH Vitamin D Total PTH Intact 04/16/24 11/28/24 12/13/24 09:25 13:44 11:44 Creatinine Estimated GFR Calcium 9.8 10.5 H D Ionized Calcium 5.1 Phosphorus Magnesium 2.0 Albumin 4.4 4.9 25-OH Vitamin D Total 44.7 34.5 PTH Intact 101.6 H 03/07/25 10:58 Creatinine 0.94 Estimated GFR 59 Calcium 9.6 D Ionized Calcium 5.2 Phosphorus 3.2 Magnesium Albumin 4.6 25-OH Vitamin D Total 28.4 L PTH Intact 93.0 H BONE DENSITOMETRY 07/14/23 CLINICAL INDICATION: Menopause. COMPARISON: Baseline BD dated 06/22/2021. TECHNIQUE: Using a SmartPill DXA System (software version: 13.1) manufactured by [employer], dual-energy x-ray absorptiometry was performed of the lumbar spine and left hip. The images are of good technical quality. Summary results are attached. FINDINGS: LEFT FEMUR, NECK: Current: BMD 0.927 g/cm2, Z-score 0.5, T-score -0.8, normal. Baseline: BMD 0.946 g/cm2. LEFT FEMUR, TOTAL: Current: BMD 1.084 g/cm2, Z-score 1.7, T-score 0.6, normal, 2.3% decrease from baseline (<5% change is not significant). Baseline: BMD 1.109 g/cm2. AP SPINE L1-L4: Current: BMD 1.119 g/cm2, Z-score 0.6, T-score -0.5, normal, 1.3% increase from baseline (<5% change is not significant). Baseline: BMD 1.105 g/cm2. IDENTIFIED RISK FACTORS: Menopause. HISTORY OF FRACTURE: None listed. MEDICATIONS: Vitamin D. MM/XR DEXA axial skeleton IMPRESSION: 1. DIAGNOSIS: Normal bone density based on the lowest T-score value of -0.8 in the femoral neck applying World Health Organization criteria. 2. 10-YEAR FRACTURE RISK PREDICTION, FRAX: According to the guidelines, FRAX calculation should only be performed on patients in the osteopenia bone density category. Therefore, FRAX was not performed on this patient CT UROGRAM WITHOUT AND WITH CONTRAST 10/03/23 CLINICAL INFORMATION: Reason for Exam MICROSCOPIC HEMATURA COMPARISON: 01/31/2022 MRI kidney dated 02/28/2023 TECHNIQUE: Helical scanning was performed with collimation through the abdomen and pelvis precontrast. Helical scanning was then repeated with submillimeter collimation through the abdomen and pelvis in the pyelogram phase with use of 85 mL of Omnipaque 300 intravenous contrast. Sagittal and coronal 2-D reconstructions were obtained. Multiple additional 3-D volume rendered images were obtained of the kidneys and collecting systems on an independent workstation under concurrent supervision. This CT examination was performed using dose optimization techniques as appropriate, variously including the following: *Automated exposure control *Adjustment of mA and/or kV according to patient size (this includes techniques or standardized protocols for targeted exams where dose is matched to indication/reason for exam; i.e. extremities or head) *Use of iterative reconstruction technique DLP: 768.14 mGy-cm FINDINGS: LUNG BASES: Unremarkable. ABDOMINAL AND PELVIC WALL: Unremarkable. LIVER AND BILIARY TREE: Hepatic steatosis. GALLBLADDER: Status post cholecystectomy. PANCREAS: Unremarkable. SPLEEN: Unremarkable. ADRENAL GLANDS: Unremarkable. KIDNEYS AND URETERS: Again seen arising from the posterior superior right renal pole is a heterogeneously enhancing 1.3 x 1.3 cm mass, slightly increased from prior MRI when it measured 1.1 cm, although this may be partially due to differences in technique. No hydronephrosis, hydroureter, or calculi seen. No perinephric stranding. No obvious mass lesion or filling defect is seen in the collecting systems or ureters. GASTROINTESTINAL TRACT: Unremarkable. Appendix is within normal limits. VASCULAR: Unremarkable. LYMPH NODES/PERITONEUM: There is nonspecific mistiness and stranding involving the midline mesentery with multiple mildly prominent mesenteric lymph nodes, similar to prior study. FREE FLUID: None. BLADDER: Unremarkable. PELVIC VISCERA: Unremarkable. OSSEOUS STRUCTURES: Degenerative changes of the spine. CT/CT abdomen pelvis wo/w IV con IMPRESSION: * Redemonstration of heterogeneously enhancing right renal mass, slightly increased in size from prior MRI, although this may be partially due to differences in technique. * Nonspecific mistiness and stranding involving the midline mesentery with multiple mildly prominent mesenteric lymph nodes, similar to prior study. [facility] Medical History Class 1 obesity with body mass index (BMI) of 34.0 to 34.9 in adult Renal neoplasm Endometrium, polyp LGSIL (low grade squamous intraepithelial dysplasia) Endometrial hyperplasia Hypovitaminosis D Dyslipidemia Palpitations Essential hypertension Surgical History History of esophagogastroduodenoscopy (EGD) History of colonoscopy History of cholecystectomy History of hysteroscopy Family History Father Leukemia Mother Brain tumor Sister Diabetes Heart problem Sister Renal failure Brother Stroke Brother Hypertension Family/Other FH: mental illness Maternal Uncle Paranoia Family/Other Breast cancer Social History Household Members: Spouse Household Members Other:: daughter Housing: House Alcohol intake: never Patient Tobacco Use Status: Never used Tobacco e-Cigarette/Vaping Use: Never Used Second Hand Smoke Exposure: No service: No Current occupational status: retired Sexual orientation: Straight/Heterosexual Gender identity: Female Cognitive needs: No Hearing needs: No Vision needs: Yes Female Reproductive History Menstrual Age of Menarche: 16 Physical Exam Vital Signs: Last Vital Signs Pulse 60 03/17/25 08:53 BP 130/74 03/17/25 08:53 Pulse Ox 98 03/17/25 08:53 Oxygen Delivery Method Room Air 03/17/25 08:53 BMI result Body Mass Index 33.9 Assessment & Plan Assessment & Plan (1) Hyperparathyroidism: Code(s): E21.3 - Hyperparathyroidism, unspecified Category: Medical Plan: 74-year-old female coming in today for initial evaluation of elevated PTH level. Chart review shows calcium levels have ranged anywhere from 9.3-10 since 2018. Last set of labs follow up in February 2025 showed calcium of 9.6 with albumin of 4.6, corrected calcium would be 9, even on her prior high calcium levels the albumin was high so corrected calcium would be less than 10. Labs from February 2025 showed EGFR 59, vitamin-D mildly low at 28.4, PTH level elevated at 93, normal ionized calcium of 5.2, normal phosphorus. She has had normal bone density scan from June 2023, no history of fractures. No prior history of kidney stones, abdominal CT September 2023 also did not show any kidney stones. At this point she could have mild elevation in PTH level because her vitamin-D was low normal. She only recently started taking vitamin- D again. I have sent her a prescription for 1000 units daily and she is also not taking much calcium in her diet. I have asked her to increase her calcium nutritional intake as well. PTH elevations can be seen in vitamin-D deficiency or low calcium intake. Once she has improved on both of these, I have asked her to repeat a set of blood work for me in about 6 weeks which would be about a week from her follow up appointment, because have seen some variation in PTH levels at her lab, I have asked her to repeat blood work at [facility]. Plan: -vitamin-D 1000 units daily -increase nutritional intake of calcium to 2-3 servings of calcium rich foods daily -after doing this for 6 weeks, repeat labs at [facility], ordered calcium, albumin, ionized calcium, phosphorus, PTH, vitamin-D, creatinine -follow up in 7-8 weeks to discuss results Plan I spent 45 minutes in reviewing the record, seeing the patient and documenting in the medical record. Orders: Orders Creatinine 6 Weeks E21.3 - Hyperparathyroidism, unspecified Albumin Level 6 Weeks E21.3 - Hyperparathyroidism, unspecified Calcium 6 Weeks E21.3 - Hyperparathyroidism, unspecified Calcium, Ionized 6 Weeks E21.3 - Hyperparathyroidism, unspecified Phosphorus 6 Weeks E21.3 - Hyperparathyroidism, unspecified Parathyroid Hormone Intact 6 Weeks E21.3 - Hyperparathyroidism, unspecified Vitamin D 25-OH Total 6 Weeks E21.3 - Hyperparathyroidism, unspecified Medications: New cholecalciferol (vitamin D3) 25 mcg PO DAILY 90 caps 1RF 3 months Patient Instructions: Take vitamin D 1000 units daily Increase nutritional intake of calcium to include 2-3 servings of calcium rich foods daily such as milk, yogurt , cheese After doing this for 6 weeks , do blood work at [facility] lab located on [address] [place] [address] Please make sure this is done a week before your next appointment with me mid April [employer] 1000 unidades de vitamina D al d?a. Aumente garcia ingesta nutricional de calcio incluyendo de 2 a 3 porciones diarias de alimentos ricos en calcio, trinity leche, yogur y queso. Despu?s de 6 semanas, realice un an?lisis de inocencio en el laboratorio [facility], ubicado en [address] [place] [address]. Por favor, aseg?rese de realizarlo monique semana antes de garcia pr?xima kesha conmigo a mediados de noviembre. Coding Level of Care Code New Pt Level 4 (11344) Diagnoses Hyperparathyroidism E21.3 Time Spent (min) 45
[2025-03-17 08:53] VITALS: BP 130/74; PULSE 60; O2SAT 98; BMI 33.9
== END 2025-03-17 09:30 | disposition home or self-care (01) ==
PROVIDERS: PCP Internal Medicine; Visit Provider Student in an Organized Health Care Education/Training Program
DX: E21.3 Hyperparathyroidism, unspecified (principal)
CPT/HCPCS: 99204

== ENCOUNTER → 2025-03-17 08:51 | Outpatient (BNVA) | payer MEDICARE, SELFPAY | PROVIDERS: PCP Internal Medicine; Visit Provider Student in an Organized Health Care Education/Training Program | DX: E21.3 Hyperparathyroidism, unspecified (principal) | CPT/HCPCS: 99202 ==

== ENCOUNTER 2025-03-24 13:22 | Outpatient (REF) | payer MEDICARE, SELFPAY ==
--- NOTE | ~2025-03-24 | XR_ITS ---
EXAMINATION: XR CHEST CLINICAL INFORMATION: R05.9 - Cough, unspecified COMPARISON: January 12, 2017. TECHNIQUE: PA and lateral views FINDINGS: No consolidation, pleural effusion or pneumothorax. No hyperinflation. Cardiomediastinal silhouette size is normal. Tortuosity, thoracic aorta. Multilevel thoracolumbar spondylosis. S-shaped curvature of the mid thoracic spine. Vascular clips right upper quadrant abdomen likely prior cholecystectomy. XR/XR chest 2V IMPRESSION: No acute airspace disease. Multilevel spondylosis and mild scoliosis, thoracic spine. Electronically signed by: Jerrell Gibson MD 03/24/2025 02:42 PM EDT
== END 2025-03-24 13:23 | disposition home or self-care (01) ==
LOC: HO.HMGCX 13:22
PROVIDERS: PCP Internal Medicine; Visit Provider Nurse Practitioner Family
DX: R05.2 Subacute cough (principal); J06.9 Acute upper respiratory infection, unspecified
CPT/HCPCS: 71046; 99212

== ENCOUNTER 2025-03-24 13:22 | Outpatient (AMB) | payer MEDICARE, SELFPAY ==
[2025-03-24 13:26] VITALS: BP 144/84; PULSE 80; TEMP 36.9; O2SAT 97
--- NOTE | 2025-03-24 13:26 | AM.OFFWIN_ITS ---
Intake Vital Signs 03/24/25 13:26 Height 5 ft 3 in BP 144/84 H Blood Pressure Location Rt brachial Position Sitting Pulse 80 Pulse Source Pulse Oximeter Temp 98.4 F Temp Source Oral Pulse Oximetry (%) 97 Oxygen Delivery Method Room Air Intake Visit Reasons: ep cough mucus and chest pain Patient Tobacco Use Status: Never used Tobacco Allergies aspirin (ASPIRIN) Allergy (Intermediate, Verified 03/24/25 13:28) GI UPSET, stomach upset Medication List - Last Reconciled 03/24/25 by Lorraine Dickey NP acetaminophen ER 1,300 mg (2 x 650 mg) PO Q8H PRN 30 days allopurinol 300 mg PO DAILY 90 days azithromycin 500 mg PO DAILY 3 days benzonatate 200 mg (2 x 100 mg) PO BID cetirizine (All Day Allergy (cetirizine)) 10 mg PO DAILY PRN 90 days cholecalciferol (vitamin D3) 25 mcg PO DAILY 3 months diclofenac sodium 50 mg PO Q12H PRN fluticasone propionate 50 mcg/actuation 1 spray intranasal DAILY hydrochlorothiazide 25 mg PO DAILY 90 days lisinopril 30 mg PO DAILY 90 days prednisone 50 mg PO DAILY 5 days psyllium husk (Metamucil) 1 tbsp PO DAILY Do you need a note to return to daycare/school/sports/work: No HPI HPI Comments History of Present Illness Details 74 y/o Female patient who presents to [facility] walk in clinic with c/o Cough, Chest tightness and wheezing for 3 days. at home sick from pneumonia. Denies fevers, chills, nausea or vomiting. [facility] Medical History (Updated 03/24/25 @ 14:36 by Lorraine Dickey NP) Upper respiratory infection Cough Class 1 obesity with body mass index (BMI) of 34.0 to 34.9 in adult Renal neoplasm Endometrium, polyp LGSIL (low grade squamous intraepithelial dysplasia) Endometrial hyperplasia Hypovitaminosis D Dyslipidemia Palpitations Essential hypertension Surgical History History of esophagogastroduodenoscopy (EGD) History of colonoscopy History of cholecystectomy History of hysteroscopy Family History Father Leukemia Mother Brain tumor Sister Diabetes Heart problem Sister Renal failure Brother Stroke Brother Hypertension Family/Other FH: mental illness Maternal Uncle Paranoia Family/Other Breast cancer Social History Household Members: Spouse Household Members Other:: daughter Housing: House Alcohol intake: never Patient Tobacco Use Status: Never used Tobacco e-Cigarette/Vaping Use: Never Used Second Hand Smoke Exposure: No service: No Current occupational status: retired Sexual orientation: Straight/Heterosexual Gender identity: Female Cognitive needs: No Hearing needs: No Vision needs: Yes Female Reproductive History Menstrual Age of Menarche: 16 Review of Systems Const All systems reviewed & are unremarkable except as noted in HPI and below Physical Exam Vital Signs: Last Vital Signs Temp 98.4 F 03/24/25 13:26 Pulse 80 03/24/25 13:26 BP 144/84 H 03/24/25 13:26 Pulse Ox 97 03/24/25 13:26 Oxygen Delivery Method Room Air 03/24/25 13:26 Const General: no acute distress Nutritional Appearance: well nourished Orientation/consciousness: patient oriented x3 HEENT Head: Yes normocephalic Ears: external ears normal and TM abnormal with fluid behind the TM on the right and obstructed by cerumen on the left; not perforated and not retracted General nose exam: Normal nasal mucous membranes and turbinates present and Nasal discharge present Face and sinus: Yes sinuses nontender Mouth: moist mucous membranes Throat: Yes uvula midline Resp Effort & Inspection: normal respiratory effort, able to speak in complete sentences, no audible wheezes and Actively coughing Auscultation: clear to auscultation bilaterally, no crackles, no rales, no rhonchi and no wheezes Cardio Heart sounds: S1 normal heart sound present and S2 normal heart sound present Neuro General: patient oriented x3, gait normal and moves all extremities Psych Speech and movement: Normal speech and movement present Assessment & Plan Assessment & Plan (1) Cough: Code(s): R05.9 - Cough, unspecified Qualifiers: Cough type: subacute Qualified Code(s): R05.2 - Subacute cough Plan: Ordered Chest Xray (RESULTS: Negative). Ordered Prednisone, Z-pack and Benzonatate Ordered Resp Path panel Orders: Orders XR chest 2V Today R05.9 - Cough, unspecified Resp [place] [facility] J06.9 - Acute upper respiratory infection, unspecified Medications: New prednisone 50 mg PO DAILY 5 tabs 0RF 5 days R05.2 - Subacute cough azithromycin 500 mg PO DAILY 3 tabs 0RF 3 days R05.2 - Subacute cough benzonatate 200 mg (2 x 100 mg) PO BID 60 caps 0RF R05.2 - Subacute cough Coding Level of Care Code Est Pt Level 4 (82076) Diagnoses Subacute cough R05.2 Cough type: subacute Time Spent (min) 20
== END 2025-03-24 14:23 | disposition home or self-care (01) ==
PROVIDERS: PCP Internal Medicine; Visit Provider Nurse Practitioner Family
DX: R05.2 Subacute cough (principal)

== ENCOUNTER → 2025-03-24 14:24 | Outpatient (BNV) | payer MEDICARE, SELFPAY | PROVIDERS: PCP Internal Medicine; Visit Provider Radiology Diagnostic Radiology | DX: R05.9 Cough, unspecified (principal); M47.814 Spondylosis without myelopathy or radiculopathy, thoracic region | CPT/HCPCS: 71046 ==

== ENCOUNTER 2025-03-24 14:26 | Outpatient (REF) | payer MEDICARE, SELFPAY ==
[2025-03-25 08:33] LABS: Chlamydia pneumoniae PCR Not Detected (Not Detect.); Coronavirus 229E PCR Not Detected (Not Detect.); Coronavirus HKU1 PCR Not Detected (Not Detect.); Coronavirus NL63 PCR Not Detected (Not Detect.); Coronavirus OC43 PCR Not Detected (Not Detect.); RSV PCR Not Detected (Not Detect.); Rhino/Enterovirus PCR Detected (Not Detect.)
[2025-03-25 08:41] LABS: Influenza A H1 PCR Not Detected (Not Detect.); Influenza A H1-2009 PCR Not Detected (Not Detect.); Influenza A H3 PCR Not Detected (Not Detect.); SARS-CoV-2 PCR Not Detected (Not Detect.)
== END 2025-03-24 14:27 | disposition home or self-care (01) ==
LOC: HO.LAB 14:26
PROVIDERS: Visit Provider Nurse Practitioner Family
DX: J06.9 Acute upper respiratory infection, unspecified (principal); R05.9 Cough, unspecified
CPT/HCPCS: 87633

== ENCOUNTER 2025-03-31 12:39 | Outpatient (REF) | payer MEDICARE, SELFPAY ==
--- NOTE | ~2025-03-31 | US_ITS ---
EXAMINATION: US RETROPERITONEAL LIMITED (RENAL ONLY) CLINICAL INFORMATION: Renal mass, renal cysts, hematuria.. COMPARISON: Renal ultrasound 10/14/2021. Correlation made with MR abdomen 02/28/2023, and CT abdomen pelvis 10/03/2023. TECHNIQUE: Real-time imaging of the kidneys. FINDINGS: RIGHT KIDNEY: 10.5 x 4.6 x 4.6 cm (SAG x AP x TRV). The kidney is normal in size, contour, and echogenicity. Renal cortical thickness is normal. There are no calculi present. There is no hydronephrosis. There is redemonstration of an upper pole mass lesion measuring 1.7 x 1.2 x 1.1 cm, previously reported as 1.6 x 1.4 x 1.4 cm on the prior ultrasound. This appears stable over time suggesting a benign neoplasm. 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 There are 2 simple cysts in the upper pole, the larger measuring 1.1 cm. LEFT KIDNEY: 10.1 x 4.0 x 4.5 cm (SAG x AP x TRV). The kidney is normal in size, contour, and echogenicity. Renal cortical thickness is normal. No calculi or suspicious focal parenchymal lesions. No hydronephrosis. There are 2 simple cysts in the upper pole, the larger measuring 1.1 cm. US/US renal BI IMPRESSION: 1. There is a stable mass in the upper pole of the right kidney, measuring up to 1.7 cm, essentially unchanged in size when compared with prior examinations dating back to 10/14/2021. This is consistent with a likely benign neoplasm. 2. 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 3. There are bilateral upper pole simple renal cysts. 4. There is no hydronephrosis or calculus involving either kidney. Electronically signed by: Mendez Frias MD 03/31/2025 01:54 PM EDT
== END 2025-03-31 12:40 | disposition home or self-care (01) ==
LOC: HO.HMGCX 12:39
PROVIDERS: PCP Internal Medicine; Visit Provider Urology
DX: N28.1 Cyst of kidney, acquired (principal); N28.89 Other specified disorders of kidney and ureter; R31.29 Other microscopic hematuria
CPT/HCPCS: 76775

== ENCOUNTER → 2025-03-31 12:47 | Outpatient (BNV) | payer MEDICARE, SELFPAY | PROVIDERS: PCP Internal Medicine; Visit Provider Radiology Diagnostic Radiology | DX: D17.71 Benign lipomatous neoplasm of kidney (principal); N28.1 Cyst of kidney, acquired | CPT/HCPCS: 76775 ==

== ENCOUNTER 2025-04-04 08:59 | Outpatient (AMB) | payer MEDICARE, SELFPAY ==
--- NOTE | 2025-04-04 09:37 | A.OFFVIS_ITS ---
Intake Visit Reasons: 2 yrs follow up/ US Intake Note: patient presents today for: 2yr follow up urology medications: allopurinol blood thinners: none US done: 03/31/25 Insulation Board Coater Operator Required: Yes Accompanied by: Self / Same As Patient Allergies aspirin (ASPIRIN) Allergy (Intermediate, Verified 04/04/25 09:40) GI UPSET, stomach upset HPI Comments Details: Yenifer is a very pleasant female. [place] Zealander speaker. She is a patient of Dr. Huffman. She is seen for the following urologic. - renal cyst New [place]alander translation provided in office by qualified medical research tech Review current imaging Unchanged renal lesion P.r.n. follow-up Renal cyst P.r.n. follow-upand question of angiomyolipoma Prior imaging with multiple renal cysts and question of 1.6 cm AML on upper pole right kidney Imaging - 04/14 renal ultrasound with multiple bilateral renal cysts up to 1.5 cm and question of 1.6 cm mL upper pole right kidney - 12/16 MRI - 1.1 x 0.8 x 1.1 cm enhancing upper pole right renal lesion. This lesion has slightly increased in size in size relative to 2016 - 04/19 renal ultrasound compared with CT last year and prior MRI - renal lesions unchanged PFSH Medical History (Updated 04/04/25 @ 10:06 by Fantasma Wayne MD) Renal mass, right Renal mass Upper respiratory infection Cough Class 1 obesity with body mass index (BMI) of 34.0 to 34.9 in adult Renal neoplasm Endometrium, polyp LGSIL (low grade squamous intraepithelial dysplasia) Endometrial hyperplasia Hypovitaminosis D Dyslipidemia Palpitations Essential hypertension Surgical History History of esophagogastroduodenoscopy (EGD) History of colonoscopy History of cholecystectomy History of hysteroscopy Family History Father Leukemia Mother Brain tumor Sister Diabetes Heart problem Sister Renal failure Brother Stroke Brother Hypertension Family/Other FH: mental illness Maternal Uncle Paranoia Family/Other Breast cancer Social History Household Members: Spouse Household Members Other:: daughter Housing: House Alcohol intake: never Patient Tobacco Use Status: Never used Tobacco e-Cigarette/Vaping Use: Never Used Second Hand Smoke Exposure: No service: No Current occupational status: retired Sexual orientation: Straight/Heterosexual Gender identity: Female Cognitive needs: No Hearing needs: No Vision needs: Yes Female Reproductive History Menstrual Age of Menarche: 16 Review of Systems Const Denies chills and Denies fever(s) Card Reports no additional complaints and Denies syncope Resp Denies cough GI Denies abdominal pain and Denies heartburn Reports as per HPI and Denies change in libido Neuro Denies syncope Psych Denies change in libido Endo Denies change in libido Physical Exam Const General: cooperative, healthy appearing, comfortable and no acute distress Orientation/consciousness: patient oriented x3 HEENT Face and sinus: Yes normal facial exam Mouth: moist mucous membranes Neck Neck: Yes normal visual inspection, Yes full ROM and Yes trachea midline Chest Chest palpation & inspection: normal inspection of the chest Resp Effort & Inspection: normal respiratory effort, able to speak in complete sentences and no respiratory distress GI Inspection: Yes normal to inspection Back/Spine/Pelvis Cervical Spine: normal cervical lordosis Thoracic/Lumbar Spine: thoracic and lumbar spine normal to inspection Skin General skin exam: no rashes or lesions noted Neuro General: patient oriented x3, gait normal, tone normal and moves all extremities Extrem General: Yes normal to inspection and Yes capillary refill normal Assessment & Plan Assessment & Plan (1) Renal cyst: Code(s): N28.1 - Cyst of kidney, acquired Category: Medical (2) Angiomyolipoma of kidney: Code(s): D17.71 - Benign lipomatous neoplasm of kidney Category: Medical Plan P.r.n. follow-up Patient Instructions: This note is constructed using voice recognition software. While every effort has been made to ensure accuracy pipe and tank fabricator errors may have been included. Imaging studies, laboratory and physical exam results were discussed and reviewed in detail. No major barriers to patient understanding were identified. An opportunity to ask questions regarding the treatment plan was provided. All questions were answered. The patient expressed understanding and agreement with the above treatment plan. The patient is aware they should contact our office by phone for worsening of their current condition or the appearance of new urologic symptoms. Compliance is encouraged with any medications and followup testing that is ordered. It is a privilege to participate in the urologic care of your patient. If you have any questions or concerns regarding treatment for the above conditions, or other urologic issues, please do not hesitate to contact me. The office telephone contact is [phone]. Sincerely, Dr Fantasma Wayne MD, [facility] - Urology Compassionate Specialist Care for the Genitourinary System Coding Level of Care Code Est Pt Level 4 (51495) Diagnoses Renal cyst N28.1 Angiomyolipoma of kidney D17.71
== END 2025-04-04 10:19 | disposition home or self-care (01) ==
LOC: HO.HUSH 08:59
PROVIDERS: PCP Internal Medicine; Visit Provider Urology
DX: N28.1 Cyst of kidney, acquired (principal); D17.71 Benign lipomatous neoplasm of kidney
CPT/HCPCS: 99214

== ENCOUNTER → 2025-04-04 08:59 | Outpatient (BNVA) | payer MEDICARE, SELFPAY | PROVIDERS: PCP Internal Medicine; Visit Provider Urology | DX: N28.1 Cyst of kidney, acquired (principal); D17.71 Benign lipomatous neoplasm of kidney | CPT/HCPCS: 99212 ==

== ENCOUNTER 2025-05-14 07:44 | Outpatient (REF) | payer MEDICARE, SELFPAY | END 2025-05-14 07:45 | disposition home or self-care (01) | LOC: HO.LNP 07:44 | PROVIDERS: PCP Internal Medicine; Visit Provider Obstetrics & Gynecology | DX: Z01.419 Encounter for gynecological examination (general) (routine) without abnormal findings (principal); Z12.31 Encounter for screening mammogram for malignant neoplasm of breast | CPT/HCPCS: 87626; 88175; 99397 ==

== ENCOUNTER 2025-05-14 07:44 | Outpatient (AMB) | payer MEDICARE, SELFPAY ==
[2025-05-14 07:56] VITALS: BMI 33.5
--- NOTE | 2025-05-14 07:56 | A.OFFVIS_ITS ---
Vital Signs 05/14/25 07:56 Height 5 ft 3 in Weight 189 lb BMI 33.5 Intake Visit Reasons: annual Strategic Debriefing Specialist Required: Yes Strategic Debriefing Specialist Language: Commercial Credit Analyst Services: Strategic Debriefing Specialist Present (in person) Strategic Debriefing Specialist Name: Wendy VELAZQUEZ Information Interpreted: non-clinical & clinical Websphere Portal Architect: Websphere Portal Architect Present (Wendy VELAZQUEZ) Accompanied by: Self / Same As Patient Allergies aspirin (ASPIRIN) Allergy (Intermediate, Verified 05/14/25 07:58) GI UPSET, stomach upset Post menopausal: Yes HPI Comments Details: Presenting for annual exam. No complaints. Last Pap/HPV was negative in 06/17 Last Mammogram was BI-RADS 2 in 07/20 Last Colonoscopy was in 09/15 Last DEXA scan was in 07/19 [facility] Medical History Renal mass, right Renal mass Upper respiratory infection Cough Class 1 obesity with body mass index (BMI) of 34.0 to 34.9 in adult Renal neoplasm Endometrium, polyp LGSIL (low grade squamous intraepithelial dysplasia) Endometrial hyperplasia Hypovitaminosis D Dyslipidemia Palpitations Essential hypertension Surgical History History of esophagogastroduodenoscopy (EGD) History of colonoscopy History of cholecystectomy History of hysteroscopy Family History Father Leukemia Mother Brain tumor Sister Diabetes Heart problem Sister Renal failure Brother Stroke Brother Hypertension Family/Other FH: mental illness Maternal Uncle Paranoia Family/Other Breast cancer Social History Household Members: Spouse Household Members Other:: daughter Housing: House Alcohol intake: never Patient Tobacco Use Status: Never used Tobacco e-Cigarette/Vaping Use: Never Used Second Hand Smoke Exposure: No service: No Current occupational status: retired Sexual orientation: Straight/Heterosexual Gender identity: Female Cognitive needs: No Hearing needs: No Vision needs: Yes Female Reproductive History Menstrual Age of Menarche: 16 Date of last pap smear: 06/07/23 Date of Mammogram: 07/18/24 Review of Systems Const All systems reviewed & are unremarkable except as noted in HPI and below Card Reports as per HPI Resp Reports as per HPI GI Reports as per HPI and Reports no additional complaints Reports as per HPI Physical Exam Vital Signs: BMI result Body Mass Index 33.5 Const General: cooperative, healthy appearing and comfortable Chest Chest palpation & inspection: normal inspection of the chest and normal palpation of entire chest wall Breast/axilla inspection: normal inspection of the breasts and normal inspection of the axillae Breast/axilla palpation: normal palpation of the breasts, normal palpation of the axillae and no axillary lymphadenopathy Resp Effort & Inspection: normal respiratory effort Auscultation: clear to auscultation bilaterally Percussion: percussion normal Cardio Palpation: normal PMI Rate: regular rate Rhythm: regular rhythm Heart sounds: no murmurs and no rubs Peripheral pulses: Peripheral pulses 2+ throughout GI Inspection: Yes normal to inspection Palpation (GI): Soft to palpation, nontender, no guarding, not rigid and No hepatosplenomegaly present Percussion: Yes normal to percussion Auscultation: normal bowel sounds Rectal Exam - Female: deferred General: Yes bladder normal to palpation External Female Exam: No lesion Speculum Exam - Vagina: normal appearance of the vagina, normal palpation, normal vaginal discharge and not erythematous Speculum Exam - Cervix: normal appearance of the cervix and normal palpation Bimanual exam- vagina & uterus: normal bimanual exam, normal palpation, uterine size normal, bladder normal to palpation, consistency normal and normal palpation Bimanual Exam- Adnexa, other: normal adnexae, no masses and no tenderness Assessment & Plan Assessment & Plan (1) Well woman exam: Comment: History of SHELDON 1 in 2019 followed by normal co testing in 2020 and negative Co testing in 06/17 Code(s): Z01.419 - Encounter for gynecological examination (general) (routine) without abnormal findings Category: Medical Plan: Co testing done since the patient had history of SHELDON 1 in 2019 followed to negative Co testing in 2020 and 06/17. Counseled the patient about the recommended dietary allowance of 1200 mg of Calcium & 800 IU of vitamin D. Mammogram scheduled soon. The patient was instructed to perform monthly self-breast exams and to schedule an annual exam in a year; All questions answered and the patient verbalized understanding. Orders: Orders MM tomosynthesis screening BI Today Z12.31 - Encounter for screening mammogram for malignant neoplasm of breast Coding Level of Care Code Est Pt Prev Care >65y(38476) Diagnoses Well woman exam Z01.419
== END 2025-05-14 09:27 | disposition home or self-care (01) ==
LOC: HO.HWS 07:45
PROVIDERS: PCP Internal Medicine; Visit Provider Obstetrics & Gynecology
DX: Z01.419 Encounter for gynecological examination (general) (routine) without abnormal findings (principal)
CPT/HCPCS: 99397; 99459

== ENCOUNTER 2025-06-20 08:48 | Outpatient (AMB) | payer MEDICARE, SELFPAY ==
--- NOTE | 2025-06-20 08:53 | A.OFFVIS_ITS ---
Vital Signs 3 06/20/25 08:54 Height 5 ft 3 in Weight 191 lb 12.835 oz BMI 34.0 BP 116/70 Blood Pressure Location Rt brachial Position Sitting Pulse 96 Pulse Source Pulse Oximeter Pulse Oximetry (%) 98 Oxygen Delivery Method Room Air Intake Visit Reasons: Hyperparathyroidism Intake Note: Patient presents here today for Hyperparathyroidism follow-up after completion of work-up. Last seen by Dr Libby MD. * Thyroid Function Test: Labs completed at [facility] on 04/28/2025 Iv Rn Required: No Iv Rn Services: Iv Rn Offered & Declined (DR Fitzpatrick Speak Fluent Grenadian) Iv Rn Name: Roxana [id number] Information Interpreted: non-clinical & clinical Accompanied by: Self / Same As Patient Allergies aspirin (ASPIRIN) Allergy (Intermediate, Verified 06/20/25 08:54) GI UPSET, stomach upset Medication List - Last Reconciled 06/20/25 by Yeset Nanette Stephens MD acetaminophen ER 1,300 mg (2 x 650 mg) PO Q8H PRN 30 days allopurinol 300 mg PO DAILY 90 days calcium citrate 250 mg PO BID cetirizine (All Day Allergy (cetirizine)) 10 mg PO DAILY PRN 90 days cholecalciferol (vitamin D3) 25 mcg PO DAILY 3 months diclofenac sodium 50 mg PO Q12H PRN fluticasone propionate 50 mcg/actuation 1 spray intranasal DAILY hydrochlorothiazide 25 mg PO DAILY 90 days lisinopril 30 mg PO DAILY 90 days psyllium husk (Metamucil) 1 tbsp PO DAILY HPI Comments Details: 74-year-old female here today for initial evaluation of elevated PTH level. Chart review shows calcium levels have ranged anywhere from 9.3-10 since 2018. Last set of labs follow up in February 2025 showed calcium of 9.6 with albumin of 4.6, corrected calcium would be 9, even on her prior high calcium levels the albumin was high so corrected calcium would be less than 10. Labs from February 2025 showed EGFR 59, vitamin-D mildly low at 28.4, PTH level elevated at 93, normal ionized calcium of 5.2, normal phosphorus. No fractures DEXA scan 07/14/2023 showed normal bone density of the spine with T-score of- 0.5, with a 1.3% increase from 2020, normal bone density of the hip with T-score of-0.8 at the left femoral neck, T-score of 0.6 at the left femur total, with 2.3% decrease from baseline in 2020. Patient denies history of kidney stones Abdominal CT September 2023 did not show any kidney stones. Was done for microscopic hematuria, though she was found to have a renal mass. No family history of calcium problems or kidney stones Vitamin D : just restarted taking D 3 again 03/14/25 , had stopped it previously, doesnt know the dose Calcium : no supplements, milk: three quarters a cup of milk daily, yogurt: none, cheese :2-3 times a week HCTZ 25 mg daily for blood pressure for many years , reduced from 50 mg daily recently. Interval history 06/20/2025 Taking vitamin D 1000 IU daily She has increased her intake of calcium No falls or fractures No symptoms of hypercalcemia: no constipation, no polydipsia, poliuria, abdominal pain Physical exam: General: Well appearing. NAD. Not Cushingoid or Acromegalic Neck/Thyroid: Thyroid not palpable, no nodules. Eyes: No conjunctival injection, not lid lag or proptosis CV: RRR, no murmur. No edema. Resp:Lungs clear to auscultation bilaterally Abdomen: Soft, nontender. nondistended Extremities/Neuro: No weakness or tremor of outstretched hands Labs Laboratory Tests 04/13/18 08/20/18 08/23/19 11:20 09:40 09:40 Creatinine Estimated GFR Calcium 10.0 10.2 9.6 Ionized Calcium Phosphorus Magnesium Albumin 4.8 4.6 4.4 25-OH Vitamin D Total PTH Intact 03/16/20 11/16/20 05/17/21 09:50 09:55 09:28 Creatinine Estimated GFR Calcium 9.3 9.5 9.7 Ionized Calcium Phosphorus Magnesium Albumin 4.5 4.4 4.4 25-OH Vitamin D Total PTH Intact 11/02/21 03/07/22 07/07/22 10:30 08:31 09:45 Creatinine Estimated GFR Calcium 9.8 9.9 9.9 Ionized Calcium Phosphorus Magnesium Albumin 4.4 4.5 4.5 25-OH Vitamin D Total PTH Intact 11/11/22 03/20/23 11/30/23 09:46 09:32 09:51 Creatinine Estimated GFR Calcium 9.7 10.0 9.9 Ionized Calcium Phosphorus Magnesium Albumin 4.3 4.5 4.4 25-OH Vitamin D Total PTH Intact 04/16/24 11/28/24 12/13/24 09:25 13:44 11:44 Creatinine Estimated GFR Calcium 9.8 10.5 H D Ionized Calcium 5.1 Phosphorus Magnesium 2.0 Albumin 4.4 4.9 25-OH Vitamin D Total 44.7 34.5 PTH Intact 101.6 H 03/07/25 10:58 Creatinine 0.94 Estimated GFR 59 Calcium 9.6 D Ionized Calcium 5.2 Phosphorus 3.2 Magnesium Albumin 4.6 25-OH Vitamin D Total 28.4 L PTH Intact 93.0 H BONE DENSITOMETRY 07/14/23 CLINICAL INDICATION: Menopause. COMPARISON: Baseline BD dated 06/22/2021. TECHNIQUE: Using a [employer] DXA System (software version: 13.1) manufactured by [employer], dual-energy x-ray absorptiometry was performed of the lumbar spine and left hip. The images are of good technical quality. Summary results are attached. FINDINGS: LEFT FEMUR, NECK: Current: BMD 0.927 g/cm2, Z-score 0.5, T-score -0.8, normal. Baseline: BMD 0.946 g/cm2. LEFT FEMUR, TOTAL: Current: BMD 1.084 g/cm2, Z-score 1.7, T-score 0.6, normal, 2.3% decrease from baseline (<5% change is not significant). Baseline: BMD 1.109 g/cm2. AP SPINE L1-L4: Current: BMD 1.119 g/cm2, Z-score 0.6, T-score -0.5, normal, 1.3% increase from baseline (<5% change is not significant). Baseline: BMD 1.105 g/cm2. IDENTIFIED RISK FACTORS: Menopause. HISTORY OF FRACTURE: None listed. MEDICATIONS: Vitamin D. MM/XR DEXA axial skeleton IMPRESSION: 1. DIAGNOSIS: Normal bone density based on the lowest T-score value of -0.8 in the femoral neck applying World Health Organization criteria. 2. 10-YEAR FRACTURE RISK PREDICTION, FRAX: According to the guidelines, FRAX calculation should only be performed on patients in the osteopenia bone density category. Therefore, FRAX was not performed on this patient CT UROGRAM WITHOUT AND WITH CONTRAST 10/03/23 CLINICAL INFORMATION: Reason for Exam MICROSCOPIC HEMATURA COMPARISON: 01/31/2022 MRI kidney dated 02/28/2023 TECHNIQUE: Helical scanning was performed with collimation through the abdomen and pelvis precontrast. Helical scanning was then repeated with submillimeter collimation through the abdomen and pelvis in the pyelogram phase with use of 85 mL of Omnipaque 300 intravenous contrast. Sagittal and coronal 2-D reconstructions were obtained. Multiple additional 3-D volume rendered images were obtained of the kidneys and collecting systems on an independent workstation under concurrent supervision. This CT examination was performed using dose optimization techniques as appropriate, variously including the following: *Automated exposure control *Adjustment of mA and/or kV according to patient size (this includes techniques or standardized protocols for targeted exams where dose is matched to indication/reason for exam; i.e. extremities or head) *Use of iterative reconstruction technique DLP: 768.14 mGy-cm FINDINGS: LUNG BASES: Unremarkable. ABDOMINAL AND PELVIC WALL: Unremarkable. LIVER AND BILIARY TREE: Hepatic steatosis. GALLBLADDER: Status post cholecystectomy. PANCREAS: Unremarkable. SPLEEN: Unremarkable. ADRENAL GLANDS: Unremarkable. KIDNEYS AND URETERS: Again seen arising from the posterior superior right renal pole is a heterogeneously enhancing 1.3 x 1.3 cm mass, slightly increased from prior MRI when it measured 1.1 cm, although this may be partially due to differences in technique. No hydronephrosis, hydroureter, or calculi seen. No perinephric stranding. No obvious mass lesion or filling defect is seen in the collecting systems or ureters. GASTROINTESTINAL TRACT: Unremarkable. Appendix is within normal limits. VASCULAR: Unremarkable. LYMPH NODES/PERITONEUM: There is nonspecific mistiness and stranding involving the midline mesentery with multiple mildly prominent mesenteric lymph nodes, similar to prior study. FREE FLUID: None. BLADDER: Unremarkable. PELVIC VISCERA: Unremarkable. OSSEOUS STRUCTURES: Degenerative changes of the spine. CT/CT abdomen pelvis wo/w IV con IMPRESSION: * Redemonstration of heterogeneously enhancing right renal mass, slightly increased in size from prior MRI, although this may be partially due to differences in technique. * Nonspecific mistiness and stranding involving the midline mesentery with multiple mildly prominent mesenteric lymph nodes, similar to prior study. [facility] Medical History Renal mass, right Renal mass Upper respiratory infection Cough Class 1 obesity with body mass index (BMI) of 34.0 to 34.9 in adult Renal neoplasm Endometrium, polyp LGSIL (low grade squamous intraepithelial dysplasia) Endometrial hyperplasia Hypovitaminosis D Dyslipidemia Palpitations Essential hypertension Surgical History History of esophagogastroduodenoscopy (EGD) History of colonoscopy History of cholecystectomy History of hysteroscopy Family History Father Leukemia Mother Brain tumor Sister Diabetes Heart problem Sister Renal failure Brother Stroke Brother Hypertension Family/Other FH: mental illness Maternal Uncle Paranoia Family/Other Breast cancer Social History Household Members: Spouse Household Members Other:: daughter Housing: House Alcohol intake: never Patient Tobacco Use Status: Never used Tobacco e-Cigarette/Vaping Use: Never Used Second Hand Smoke Exposure: No service: No Current occupational status: retired Sexual orientation: Straight/Heterosexual Gender identity: Female Cognitive needs: No Hearing needs: No Vision needs: Yes Female Reproductive History Menstrual Age of Menarche: 16 Physical Exam Vital Signs: Last Vital Signs Pulse 96 06/20/25 08:54 BP 116/70 06/20/25 08:54 Pulse Ox 98 06/20/25 08:54 Oxygen Delivery Method Room Air 06/20/25 08:54 BMI result Body Mass Index 34.0 Assessment & Plan Assessment & Plan (1) Hyperparathyroidism: Code(s): E21.3 - Hyperparathyroidism, unspecified Category: Medical Plan: 74-year-old female coming in today for initial evaluation of elevated PTH level. Chart review shows calcium levels have ranged anywhere from 9.3-10 since 2018. Last set of labs follow up in February 2025 showed calcium of 9.6 with albumin of 4.6, corrected calcium would be 9, even on her prior high calcium levels the albumin was high so corrected calcium would be less than 10. Labs from February 2025 showed EGFR 59, vitamin-D mildly low at 28.4, PTH level elevated at 93, normal ionized calcium of 5.2, normal phosphorus. She has had normal bone density scan from June 2023, no history of fractures. No prior history of kidney stones, abdominal CT September 2023 also did not show any kidney stones. At this point she could have mild elevation in PTH level because her vitamin-D was low normal. She only recently started taking vitamin- D again. Recent labs 04/28/2025 PTH 40, calcium 10.5, ionized calcium 5.3, vitamin-D 35, creatinine 0.97. Most recent labs showed normalised PTH after vitamin-D was corrected; calcium is slightly elevated, but considering previously albumin levels between 4.3 and 4.4, adjusted calcium for albumin is 10.2, which is still normal, and the ionized calcium is also normal. A mildly calcium elevation could also be related to hydrochlorothiazide use. Looking back in the chart, it seems that the patient did have elevated PTH with normal vitamin-D, which could be in the setting of oral calcium intake. I recommend checking PTH/calcium related labs in 6 months or if patient in incidentally noted to be hypercalcemic, is diagnosed with osteoporosis by DXA or experience pathological fractures. She is concerned about the effects of cheese on her cholesterol (last LDL 122-no on medication as prefers a natural remedy -red yeast rice- and diet). Plan: -vitamin-D 1000 units daily -maintain a nutritional intake of calcium 1000mg -1200mg daily with 2-3 servings of calcium rich foods daily -Will prescribe calcium citrate 500mg daily (taken as 250mg BID) -Repeat labs in 6 months -Monitor for symptoms of hypercalcemia Plan I spent 35 minutes in reviewing the record, seeing the patient and documenting in the medical record. Orders: Orders 2 Calcium, Ionized 6 Months E21.3 - Hyperparathyroidism, unspecified Calcium, 24 Hr Ur 6 Months E21.3 - Hyperparathyroidism, unspecified Comprehensive Met. Panel 6 Months E21.3 - Hyperparathyroidism, unspecified Vitamin D 25-OH Total 6 Months E21.3 - Hyperparathyroidism, unspecified Parathyroid Hormone Intact 6 Months E21.3 - Hyperparathyroidism, unspecified Phosphorus 6 Months E21.3 - Hyperparathyroidism, unspecified Creatinine, 24 Hr Group 6 Months E21.3 - Hyperparathyroidism, unspecified Medications: New 2 calcium citrate 250 mg PO BID 60 tabs 4RF E21.3 - Hyperparathyroidism, unspecified Patient Instructions: Por favor realicese los analisis en la siguiente direccion en 6 meses: [address] [facility] [place] [address] Instrucciones para la Recolecci?n de Calcio en Orina de 24 Horas Prop?sito: Esta prueba mide la cantidad de calcio excretado en la orina cali un per?odo de 24 horas. Ayuda a evaluar el metabolismo del calcio y a diagnosticar ciertas condiciones. Materiales Necesarios: * Recipiente para recolecci?n de orina de 24 horas (proporcionado por el laboratorio o la cl?fidelina) * Dispositivo para recolectar orina (opcional, para facilitar la recolecci?n) * Instrucciones escritas (esta hoja) Instrucciones: Inicio de la Recolecci?n: * Elija un d?a en el que pueda estar en casa o tenga f?cil acceso a un ba?o. * Al despertarse el primer d?a, orine y deseche esta primera orina de la ma?leah. No la recoja. Anote la hora exacta; esta ser? garcia hora de inicio. Recolecci?n de Toda la Orina: * Cali las siguientes 24 horas, recolecte toda la orina que elimine en el recipiente proporcionado. * Cada vez que orine, h?cali en un recipiente limpio y luego transfi?ralo al recipiente de recolecci?n de 24 horas. * Mantenga el recipiente de recolecci?n en un lugar fresco, preferiblemente en el refrigerador o sobre hielo, cali el per?odo de recolecci?n Finalizaci?n de la Recolecci?n: * Exactamente 24 horas despu?s de la hora de inicio, orine por ?ltima vez y agregue esta orina al recipiente. [place] completa la recolecci?n. Despu?s de la Recolecci?n: * Aseg?rese de que la tapa est? dwight cerrada. * Etiquete el recipiente con garcia nombre, la fecha y las horas de inicio y finalizaci?n. * Devuelva el recipiente al laboratorio o al consultorio de garcia m?dico lo antes posible despu?s de completar la recolecci?n. Consejos Importantes: * No omita ninguna micci?n cali el per?odo de 24 horas. Si lo hace, es posible que deba repetir la prueba. * No permita que papel higi?irasema, heces u otros materiales entren en la muestra de orina. * Contin?e con garcia dieta habitual, a menos que se le indique lo contrario. * Algunas pruebas pueden requerir que evite ciertos alimentos o medicamentos; siga cualquier instrucci?n adicional proporcionada por garcia m?dico. Coding Level of Care Code Est Pt Level 4 (98171) Add On Problem Visit Only Diagnoses Hyperparathyroidism E21.3
[2025-06-20 08:54] VITALS: BP 116/70; PULSE 96; O2SAT 98; BMI 34.0
== END 2025-06-20 09:31 | disposition home or self-care (01) ==
LOC: HO.ENCR 08:48
PROVIDERS: PCP Internal Medicine; Visit Provider Student in an Organized Health Care Education/Training Program
DX: E21.3 Hyperparathyroidism, unspecified (principal)
CPT/HCPCS: 99214; G2211

== ENCOUNTER → 2025-06-20 08:48 | Outpatient (BNVA) | payer MEDICARE, SELFPAY | PROVIDERS: PCP Internal Medicine; Visit Provider Student in an Organized Health Care Education/Training Program | DX: E21.3 Hyperparathyroidism, unspecified (principal) | CPT/HCPCS: 99212 ==